=== PATIENT | male | born 1955 | race Caucasian/White ===

== ENCOUNTER 2020-05-03 15:17 | Outpatient (CLI) | payer OTHER, SELFPAY ==
--- NOTE | 2020-05-03 15:23 | US_ITS ---
WS: [id number] RENAL ULTRASOUND REASON FOR EXAM: CKD STAGE 4 TECHNIQUE: Grayscale and Doppler ultrasound examination of the kidneys. FINDINGS: Right kidney: Right kidney measures 9.3 cm x 4.5 cm x 4.8 cm. No calculus, hydronephrosis, or mass. Left kidney: Left kidney measures 10.7 cm x 4.9 cm x 5.0 cm. No hydronephrosis or calculus. There wer e 2 exophytic sonolucent masses involving the left kidney, 1.8 cm in maximum diameter, 2.3 cm in maxi mum diameter. Bladder was nondistended. Aorta not visualized. US/US renal BI* [id number] IMPRESSION: Small left renal cysts as above. Examination otherwise unremarkable.
== END 2020-05-03 15:18 | disposition home or self-care (01) ==
PROVIDERS: PCP Nurse Practitioner; Visit Provider Registered Nurse
DX: N18.4 Chronic kidney disease, stage 4 (severe) (principal); N28.1 Cyst of kidney, acquired
CPT/HCPCS: 76770

== ENCOUNTER 2021-07-23 09:43 | Outpatient (CLI) | payer OTHER, SELFPAY ==
--- NOTE | 2021-07-23 10:15 | USCV_ITS ---
Bayron Omer Age: 65 Gender: M : 1955 Exam Date: 07/23/2021 10:04 Ordering Phys: Rosangela Estrada MD Technologist: Exam Location: [facility] [place] Indication: HX OF LA BP: 135 / 75 HR: 70 Rhythm: Sinus Technical Quality: Adequate MEASUREMENTS (Male / Female) Normal Values 2D ECHO LV Diastolic Diameter PLAX 4.8 cm 4.2 - 5.9 / 3.9 - 5.3 cm LV Systolic Diameter PLAX 2.9 cm IVS Diastolic Thickness 1.6 cm 0.6 - 1.0 / 0.6 - 0.9 cm IVS Systolic Thickness 1.7 cm LVPW Diastolic Thickness 1.3 cm 0.6 - 1.0 / 0.6 - 0.9 cm LVPW Systolic Thickness 1.5 cm LVOT Diameter 2.1 cm LV Ejection Fraction 2D Teich 65.7 % LV Ejection Fraction MOD 2C 59.7 % LV Ejection Fraction 2C AL 59.2 % LA Diameter 4.4 cm LA Width 4.4 cm LA Height 5.8 cm RA Width 4.6 cm RA Height 4.7 cm Aorta at Sinotubular Diameter 2.7 cm M-MODE LV Diastolic Diameter MM 5.7 cm 4.2 - 5.9 / 3.9 - 5.3 cm LV Systolic Diameter MM 4.1 cm LV Ejection Fraction MM Teich 55.1 % IVS Diastolic Thickness MM 1.2 cm 0.6 - 1.0 / 0.6 - 0.9 cm IVS Systolic Thickness MM 1.8 cm LVPW Diastolic Thickness MM 1.4 cm 0.6 - 1.0 / 0.6 - 0.9 cm LVPW Systolic Thickness MM 2.1 cm RV Diastolic Diameter MM 1.3 cm Aortic Annulus Diameter 3.2 cm LA Ao Ratio MM 1.6 MV E Point Septal Separation 1.3 cm DOPPLER AV Peak Velocity 134.0 cm/s LVOT Peak Velocity 84.0 cm/s AV Area Cont Eq vti 1.8 cm squared AV Area Cont Eq pk 2.1 cm squared MV Area PHT 5.0 cm squared Mitral E to A Ratio 1.2 MV E' Velocity 100.0 cm/s TR Peak Velocity 161.8 cm/s TR Peak Gradient 10.5 mmHg TV Peak E Velocity 78.0 cm/s Right Atrial Pressure 3.0 mmHg Pulmonary Artery Systolic Pressu 13.5 mmHg PV Peak Velocity 95.0 cm/s RV Acceleration Time 0.1 s FINDINGS Left Ventricle Normal left ventricular size and systolic function, EF 58 %. No regional wall motion abnormalities. Right Ventricle The right ventricle is normal in size and function. Right Atrium The right atrium is normal in size. Left Atrium Mildly increased left atrial size. Mitral Valve Thickened mitral valve. Trace to mild mitral valve regurgitation. Aortic Valve No gross abnormalities noted no gross abnormalities noted Tricuspid Valve No gross abnormalities noted Pulmonic Valve Pulmonic valve not well visualized. Pericardium Normal pericardium without effusion. Aorta Normal ascending aorta dimension. CONCLUSIONS Normal left ventricular size and systolic function, EF 58 %. No regional wall motion abnormalities. Thickened mitral valve. Trace to mild mitral valve regurgitation. Mildly increased left atrial size. There are no intracardiac masses. There is no pericardial effusion. No previous study is available for comparison. Dr Rosangela Estrada MD FACC (Electronically Signed) Final Date: 30 July 2021 18:32 S
== END 2021-07-23 09:44 | disposition home or self-care (01) ==
PROVIDERS: PCP Family Medicine; Visit Provider Internal Medicine Cardiovascular Disease
DX: R06.00 Dyspnea, unspecified (principal); I25.2 Old myocardial infarction; I34.0 Nonrheumatic mitral (valve) insufficiency
CPT/HCPCS: 93306

== ENCOUNTER → 2021-12-12 09:55 | Outpatient (BNVA) | payer OTHER, SELFPAY | PROVIDERS: PCP Family Medicine; Visit Provider Internal Medicine Cardiovascular Disease | DX: I25.10 Atherosclerotic heart disease of native coronary artery without angina pectoris (principal); I13.0 Hypertensive heart and chronic kidney disease with heart failure and stage 1 through stage 4 chronic kidney disease, or unspecified chronic kidney disease; E13.22 Other specified diabetes mellitus with diabetic chronic kidney disease; N18.4 Chronic kidney disease, stage 4 (severe); I50.32 Chronic diastolic (congestive) heart failure; Z99.2 Dependence on renal dialysis; Z87.891 Personal history of nicotine dependence; Z79.4 Long term (current) use of insulin; Z79.84 Long term (current) use of oral hypoglycemic drugs; G47.33 Obstructive sleep apnea (adult) (pediatric); E78.5 Hyperlipidemia, unspecified | CPT/HCPCS: 99214 ==

== ENCOUNTER → 2022-04-03 10:15 | Outpatient (BNVA) | payer OTHER, SELFPAY | PROVIDERS: PCP Family Medicine; Visit Provider Internal Medicine Rheumatology | DX: Z79.899 Other long term (current) drug therapy (principal); N18.4 Chronic kidney disease, stage 4 (severe); M25.50 Pain in unspecified joint; Z11.59 Encounter for screening for other viral diseases; Z11.1 Encounter for screening for respiratory tuberculosis; E13.22 Other specified diabetes mellitus with diabetic chronic kidney disease; Z79.4 Long term (current) use of insulin | CPT/HCPCS: 36415; 73130; 80076; 82565; 82784; 85025; 85651; 86036; 86140; 86160; 86162; 86235; 86255; 86376; 86431; 86480; 86704; 86803; 87340; 99204 ==

== ENCOUNTER → 2022-06-19 10:10 | Outpatient (BNVA) | payer OTHER, SELFPAY | PROVIDERS: PCP Family Medicine; Visit Provider Internal Medicine Cardiovascular Disease | DX: I13.0 Hypertensive heart and chronic kidney disease with heart failure and stage 1 through stage 4 chronic kidney disease, or unspecified chronic kidney disease (principal); E13.22 Other specified diabetes mellitus with diabetic chronic kidney disease; N18.4 Chronic kidney disease, stage 4 (severe); I50.32 Chronic diastolic (congestive) heart failure; Z87.891 Personal history of nicotine dependence; Z79.4 Long term (current) use of insulin; E78.5 Hyperlipidemia, unspecified; I25.10 Atherosclerotic heart disease of native coronary artery without angina pectoris; E66.01 Morbid (severe) obesity due to excess calories; Z68.42 Body mass index [BMI] 45.0-49.9, adult; G47.33 Obstructive sleep apnea (adult) (pediatric) | CPT/HCPCS: 99214 ==

== ENCOUNTER → 2022-07-02 10:16 | Outpatient (BNVA) | payer OTHER, SELFPAY | PROVIDERS: PCP Family Medicine; Visit Provider Internal Medicine Rheumatology | DX: M25.50 Pain in unspecified joint (principal); Z79.899 Other long term (current) drug therapy; N18.4 Chronic kidney disease, stage 4 (severe); E13.9 Other specified diabetes mellitus without complications | CPT/HCPCS: 99214 ==

== ENCOUNTER 2022-09-07 01:00 | Outpatient (RCR) | payer OTHER, SELFPAY | END 2022-10-06 23:59 | disposition home or self-care (01) | LOC: TPT 01:00 | PROVIDERS: Visit Provider Physician Assistant | DX: M54.50 Low back pain, unspecified (principal) | CPT/HCPCS: 97110; 97162 ==

== ENCOUNTER → 2022-09-12 14:00 | Outpatient (BNVA) | payer OTHER, SELFPAY | PROVIDERS: PCP Family Medicine; Referring Provider Family Medicine; Visit Provider Physician Assistant | DX: M43.16 Spondylolisthesis, lumbar region (principal); M51.36 Other intervertebral disc degeneration, lumbar region | CPT/HCPCS: 72110; 99203 ==

== ENCOUNTER 2022-10-07 06:00 | Outpatient (RCR) | payer OTHER, SELFPAY | END 2022-11-06 23:59 | disposition home or self-care (01) | LOC: TPT 06:00 | PROVIDERS: Visit Provider Physician Assistant | DX: M54.50 Low back pain, unspecified (principal) | CPT/HCPCS: 97110 ==

== ENCOUNTER 2022-11-07 06:00 | Outpatient (RCR) | payer OTHER, SELFPAY | END 2022-11-12 23:59 | disposition home or self-care (01) | LOC: TPT 06:00 | PROVIDERS: Visit Provider Physician Assistant | DX: M54.50 Low back pain, unspecified (principal) | CPT/HCPCS: 97110 ==

== ENCOUNTER → 2022-12-25 10:40 | Outpatient (BNVA) | payer OTHER, SELFPAY | PROVIDERS: PCP Family Medicine; Visit Provider Internal Medicine Rheumatology | DX: M25.50 Pain in unspecified joint (principal); Z79.899 Other long term (current) drug therapy; N18.4 Chronic kidney disease, stage 4 (severe); E13.9 Other specified diabetes mellitus without complications; M19.90 Unspecified osteoarthritis, unspecified site; Z79.4 Long term (current) use of insulin | CPT/HCPCS: 99214 ==

== ENCOUNTER → 2023-03-11 10:58 | Outpatient (BNVA) | payer OTHER, SELFPAY | PROVIDERS: PCP Family Medicine; Visit Provider Nurse Practitioner Family | DX: L57.0 Actinic keratosis (principal); Z85.828 Personal history of other malignant neoplasm of skin; I87.2 Venous insufficiency (chronic) (peripheral); L82.1 Other seborrheic keratosis; L57.8 Other skin changes due to chronic exposure to nonionizing radiation | CPT/HCPCS: 17000; 99214 ==

== ENCOUNTER → 2023-03-13 12:26 | Outpatient (BNVA) | payer OTHER, SELFPAY | PROVIDERS: PCP Family Medicine; Visit Provider Internal Medicine Rheumatology | DX: Z79.899 Other long term (current) drug therapy (principal); M19.90 Unspecified osteoarthritis, unspecified site; N18.4 Chronic kidney disease, stage 4 (severe); E13.9 Other specified diabetes mellitus without complications; M25.50 Pain in unspecified joint | CPT/HCPCS: 36415; 80076; 82565; 85025; 86140; 99214 ==

== ENCOUNTER → 2023-03-18 09:38 | Outpatient (BNVA) | payer OTHER, SELFPAY | PROVIDERS: PCP Family Medicine; Visit Provider Podiatrist Foot & Ankle Surgery | DX: L60.3 Nail dystrophy (principal); E11.42 Type 2 diabetes mellitus with diabetic polyneuropathy; I73.9 Peripheral vascular disease, unspecified; N18.4 Chronic kidney disease, stage 4 (severe); E11.22 Type 2 diabetes mellitus with diabetic chronic kidney disease; Z79.4 Long term (current) use of insulin | CPT/HCPCS: 11721; 99203 ==

== ENCOUNTER → 2023-06-25 09:37 | Outpatient (BNVA) | payer OTHER, SELFPAY | PROVIDERS: PCP Family Medicine; Visit Provider Podiatrist Foot & Ankle Surgery | DX: L60.3 Nail dystrophy (principal); E11.42 Type 2 diabetes mellitus with diabetic polyneuropathy; I73.9 Peripheral vascular disease, unspecified; N18.4 Chronic kidney disease, stage 4 (severe); M72.2 Plantar fascial fibromatosis; M21.41 Flat foot [pes planus] (acquired), right foot; M21.42 Flat foot [pes planus] (acquired), left foot; M21.621 Bunionette of right foot; M21.622 Bunionette of left foot; Z79.4 Long term (current) use of insulin | CPT/HCPCS: 11721; 99213 ==

== ENCOUNTER 2023-06-25 10:25 | Outpatient (CLI) | payer OTHER, SELFPAY | END 2023-06-25 10:26 | disposition home or self-care (01) | LOC: SPT 10:25 | PROVIDERS: PCP Family Medicine; Visit Provider Podiatrist Foot & Ankle Surgery | DX: Z46.89 Encounter for fitting and adjustment of other specified devices (principal); M72.2 Plantar fascial fibromatosis | CPT/HCPCS: 97760; L4397 ==

== ENCOUNTER → 2023-07-03 12:43 | Outpatient (BNVA) | payer OTHER, SELFPAY | PROVIDERS: PCP Family Medicine; Visit Provider Internal Medicine Rheumatology | DX: Z79.899 Other long term (current) drug therapy (principal); M19.90 Unspecified osteoarthritis, unspecified site; N18.4 Chronic kidney disease, stage 4 (severe); E13.9 Other specified diabetes mellitus without complications; M25.50 Pain in unspecified joint | CPT/HCPCS: 99214 ==

== ENCOUNTER → 2023-07-14 09:57 | Outpatient (BNVA) | payer OTHER, SELFPAY | PROVIDERS: PCP Family Medicine; Visit Provider Nurse Practitioner Family | DX: Z85.828 Personal history of other malignant neoplasm of skin (principal); L57.0 Actinic keratosis; L57.8 Other skin changes due to chronic exposure to nonionizing radiation; D22.4 Melanocytic nevi of scalp and neck; L81.4 Other melanin hyperpigmentation; L82.1 Other seborrheic keratosis | CPT/HCPCS: 17000; 99213 ==

== ENCOUNTER → 2023-08-22 09:49 | Outpatient (BNVA) | payer OTHER, SELFPAY | PROVIDERS: PCP Family Medicine; Visit Provider Internal Medicine Cardiovascular Disease | DX: E78.5 Hyperlipidemia, unspecified (principal); I25.10 Atherosclerotic heart disease of native coronary artery without angina pectoris; I13.0 Hypertensive heart and chronic kidney disease with heart failure and stage 1 through stage 4 chronic kidney disease, or unspecified chronic kidney disease; E11.22 Type 2 diabetes mellitus with diabetic chronic kidney disease; I50.32 Chronic diastolic (congestive) heart failure; N18.4 Chronic kidney disease, stage 4 (severe); I73.9 Peripheral vascular disease, unspecified; Z87.891 Personal history of nicotine dependence; Z79.4 Long term (current) use of insulin | CPT/HCPCS: 99214 ==

== ENCOUNTER → 2023-09-10 09:17 | Outpatient (BNVA) | payer OTHER, SELFPAY | PROVIDERS: PCP Family Medicine; Visit Provider Podiatrist Foot & Ankle Surgery | DX: M21.41 Flat foot [pes planus] (acquired), right foot (principal); M21.42 Flat foot [pes planus] (acquired), left foot; I73.9 Peripheral vascular disease, unspecified; L60.3 Nail dystrophy; E11.42 Type 2 diabetes mellitus with diabetic polyneuropathy; N18.4 Chronic kidney disease, stage 4 (severe); M72.2 Plantar fascial fibromatosis; M21.621 Bunionette of right foot; M21.622 Bunionette of left foot | CPT/HCPCS: 11721; 73630; 99213 ==

== ENCOUNTER → 2023-10-16 13:31 | Outpatient (BNVA) | payer OTHER, SELFPAY | PROVIDERS: PCP Family Medicine; Visit Provider Internal Medicine Rheumatology | DX: Z79.899 Other long term (current) drug therapy (principal); M19.90 Unspecified osteoarthritis, unspecified site; N18.4 Chronic kidney disease, stage 4 (severe); E13.9 Other specified diabetes mellitus without complications; M25.50 Pain in unspecified joint | CPT/HCPCS: 99214 ==

== ENCOUNTER → 2023-12-16 10:15 | Outpatient (BNVA) | payer OTHER, SELFPAY | PROVIDERS: PCP Family Medicine; Visit Provider Podiatrist Foot & Ankle Surgery | DX: L60.3 Nail dystrophy (principal); I73.9 Peripheral vascular disease, unspecified; N18.4 Chronic kidney disease, stage 4 (severe); M72.2 Plantar fascial fibromatosis; M21.41 Flat foot [pes planus] (acquired), right foot; M21.42 Flat foot [pes planus] (acquired), left foot; M21.621 Bunionette of right foot; M21.622 Bunionette of left foot; E11.22 Type 2 diabetes mellitus with diabetic chronic kidney disease; Z79.4 Long term (current) use of insulin | CPT/HCPCS: 11721 ==

== ENCOUNTER → 2024-01-26 10:41 | Outpatient (BNVA) | payer OTHER, SELFPAY | PROVIDERS: PCP Family Medicine; Visit Provider Nurse Practitioner Family | DX: L57.8 Other skin changes due to chronic exposure to nonionizing radiation (principal); D22.4 Melanocytic nevi of scalp and neck; L81.4 Other melanin hyperpigmentation; L82.1 Other seborrheic keratosis; L57.0 Actinic keratosis; Z85.828 Personal history of other malignant neoplasm of skin | CPT/HCPCS: 17000; 99214 ==

== ENCOUNTER → 2024-02-23 11:16 | Outpatient (BNVA) | payer OTHER, SELFPAY | PROVIDERS: PCP Family Medicine; Visit Provider Internal Medicine Cardiovascular Disease | DX: I25.10 Atherosclerotic heart disease of native coronary artery without angina pectoris (principal); E78.5 Hyperlipidemia, unspecified; I11.0 Hypertensive heart disease with heart failure; I50.32 Chronic diastolic (congestive) heart failure; I73.9 Peripheral vascular disease, unspecified | CPT/HCPCS: 99214 ==

== ENCOUNTER → 2024-02-25 14:23 | Outpatient (BNVA) | payer OTHER, SELFPAY | PROVIDERS: PCP Family Medicine; Visit Provider Internal Medicine Rheumatology | DX: Z79.899 Other long term (current) drug therapy (principal); M19.90 Unspecified osteoarthritis, unspecified site; N18.4 Chronic kidney disease, stage 4 (severe); E13.9 Other specified diabetes mellitus without complications; M25.50 Pain in unspecified joint | CPT/HCPCS: 80076; 82565; 85025; 85651; 86140; 99214 ==

== ENCOUNTER → 2024-03-23 09:40 | Outpatient (BNVA) | payer OTHER, SELFPAY | PROVIDERS: PCP Family Medicine; Visit Provider Podiatrist Foot & Ankle Surgery | DX: E11.8 Type 2 diabetes mellitus with unspecified complications (principal); R03.0 Elevated blood-pressure reading, without diagnosis of hypertension; L60.3 Nail dystrophy; I73.9 Peripheral vascular disease, unspecified; N18.4 Chronic kidney disease, stage 4 (severe); M72.2 Plantar fascial fibromatosis; M21.41 Flat foot [pes planus] (acquired), right foot; M21.42 Flat foot [pes planus] (acquired), left foot; M21.621 Bunionette of right foot; M21.622 Bunionette of left foot; L84 Corns and callosities; Z79.4 Long term (current) use of insulin | CPT/HCPCS: 11055; 11721 ==

== ENCOUNTER 2024-03-26 09:39 | Outpatient (CLI) | payer OTHER, SELFPAY ==
[2024-03-26 10:18] LABS: Basophils # 0.1 10^3/uL (0.0-0.1); Basophils % 1.6 %; Eosinophils # 0.1 10^3/uL (0.0-0.8); Eosinophils % 2.4 %; Hematocrit 51.8 % (37-53); Lymphocytes # 1.2 10^3/uL (0.8-4.8); Lymphocytes % 21.2 %; Mean Corpuscular HGB Conc 31.1 g/dL (30-55); Mean Corpuscular Hemoglobin 29.7 pg (27-33); Mean Corpuscular Volume 95.6 fl (82-101); Mean Platelet Volume 12.6 fL (7.4-10.4); Monocytes # 0.4 10^3/uL (0.2-0.9); Monocytes % 6.2 %; Neutrophils # 3.96 10^3/uL (1.8-7.7); Neutrophils % 68.4 %; Nucleated Red Blood Cells % 0 %; Platelet Count 145 10^3/cmm (157-399); Red Blood Count 5.42 10^6/uL (3.85-5.65); Red Cell Distribution Width 14.5 % (12.1-15.1); White Blood Count 5.79 10^3/uL (3.29-11.43)
[2024-03-26 10:27] LABS: Albumin Level 3.9 g/dL (3.5-5.2); Anion Gap 11.3 (5-19); Blood Urea Nitrogen 21 mg/dL (8-23); Calcium 8.6 mg/dL (8.5-10.5); Carbon Dioxide 32 mmol/L (22-29); Chloride 106 mmol/L (98-107); Glomerular Filtration Rate 31.5 mL/min (90-130); Glucose 96 mg/dL (65-115); Phosphorus 2.8 mg/dL (2.5-4.5); Potassium 4.3 mmol/L (3.5-5.1); Sodium 145 mmol/L (136-145)
[2024-03-26 10:29] LABS: Calcium 8.7 mg/dL (8.5-10.5)
[2024-03-26 10:33] LABS: Parathyroid Hormone 118.6 pg/mL (15-65)
[2024-03-26 10:35] LABS: Creatinine Urine, Random 131 mg/dL (39-259); Microalbum Creatinine Ratio Ur 8 mg/dL (0-20); Microalbumin Random Urine 1 ug/dL (0-20)
== END 2024-03-26 09:40 | disposition home or self-care (01) ==
LOC: LAB 09:41
PROVIDERS: PCP Family Medicine; Visit Provider Registered Nurse
DX: N18.4 Chronic kidney disease, stage 4 (severe) (principal)
CPT/HCPCS: 36415; 80069; 82044; 82310; 83970; 85025

== ENCOUNTER 2024-05-20 20:10 | Inpatient (IN) | payer OTHER, MEDICARE, SELFPAY ==
[2024-05-20] VITALS (39 sets, daily range): BP systolic 78–115; BP diastolic 39–95; PULSE 74–88; RESP 12–26; O2SAT 84–96
--- NOTE | 2024-05-20 20:31 | ED_ITS ---
HPI - Recheck/Abnormal Lab/Rx 2 General: Chief Complaint: ER Hold Stated Complaint: Kidney Failure Time Seen by Provider: 05/20/24 20:22 History of Present Illness: Presents to the ER today after being called by the [facility] and tell him his GFR was 12 and they need to come. Further evaluated. Patient states he had nausea vomiting and diarrhea for about the last 3 to 4 days. It was worse on Friday and Friday is mildly better but patient still not drinking at most 8 to 16 ounces of water a day. 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 Patient states he did take 1 dose of an antibiotic at the [facility] gave him for this nausea vomiting and diarrhea but does not remember the name of it. Related Data Home Medications Medication Instructions Recorded Confirmed acetaminophen 500 mg tablet 500 mg PO Q6H PRN 08/11/19 03/23/24 ascorbic acid (vitamin C) 500 mg mg PO 08/11/19 03/23/24 capsule aspirin 81 mg tablet,delayed 81 mg PO DAILY 08/11/19 03/23/24 release (Adult Low Dose Aspirin) atorvastatin 80 mg tablet 40 mg PO DAILY 08/11/19 03/23/24 bupropion HCl 150 mg tablet,12 hr 150 mg PO QAM 08/11/19 03/23/24 sustained-release cholecalciferol (vitamin D3) 10 400 unit PO DAILY 08/11/19 03/23/24 mcg (400 unit) capsule clopidogrel 75 mg tablet 75 mg PO DAILY 08/11/19 03/23/24 furosemide 40 mg tablet (Lasix) 40 mg PO DAILY 08/11/19 03/23/24 gabapentin 100 mg capsule 100 mg PO BID 08/11/19 03/23/24 insulin detemir U-100 100 unit/mL 51 unit SUBCUT QAM 08/11/19 03/23/24 subcutaneous solution (Levemir U-100 Insulin) lisinopril 10 mg tablet 10 mg PO DAILY 08/11/19 03/23/24 loratadine 10 mg tablet 10 mg PO DAILY 08/11/19 03/23/24 melatonin 10 mg capsule 10 mg PO DAILY 08/11/19 03/23/24 methocarbamol 500 mg tablet 500 mg PO TID 08/11/19 03/23/24 multivitamin 1 tab PO DAILY 08/11/19 03/23/24 omega-3 fatty acids 1,000 mg 1,000 mg PO DAILY 08/11/19 03/23/24 capsule (Fish Oil Concentrate) prazosin 2 mg capsule 2 mg PO .at bedtime 08/11/19 03/23/24 testosterone cypionate 200 mg/mL IM .monthly 08/11/19 03/23/24 intramuscular oil (Depo-Testosterone) ferrous sulfate 325 mg (65 mg 325 mg PO DAILY 02/08/20 03/23/24 iron) tablet insulin detemir U-100 100 unit/mL 60 unit SUBCUT .in the evening 06/22/20 03/23/24 subcutaneous solution (Levemir U-100 Insulin) zinc acetate 25 mg (zinc) capsule 25 mg PO DAILY 06/22/20 03/23/24 (Galzin) levothyroxine 25 mcg tablet 50 mcg PO DAILY 08/08/20 03/23/24 metoprolol tartrate 25 mg tablet 25 mg PO BID 02/08/21 03/23/24 cinnamon bark 500 mg capsule 500 mg PO DAILY 06/19/22 03/23/24 Previous Rx's Medication Instructions Recorded nitroglycerin 0.4 mg sublingual 0.4 mg sublingual Q5M PRN chest 08/08/20 tablet (Nitrostat) pain #50 tabs prednisone 20 mg tablet 20 mg PO DAILY #15 tabs 09/12/22 Diabetic shoes with 3 sets of #1 ea 03/18/23 insoles diabetic shoes with 3 inserts #1 ea 06/25/23 night splint #1 ea 06/25/23 adalimumab 40 mg/0.8 mL 40 mg (0.8 mL) SUBCUT Q14D #2 ea 02/25/24 subcutaneous pen kit (Humira Pen) leflunomide 20 mg tablet 20 mg PO DAILY #90 tabs 02/25/24 diabetic shoes with 3 insterts #1 ea 03/23/24 Allergies Allergy/AdvReac Type Severity Reaction Status Date / Time No Known Allergies Allergy Verified 03/23/24 09:50 Review of Systems 2 General: Reports: 10 or more systems reviewed and unremarkable except in HPI and below PFSH ED 2 PFSH: Medical History Polyarthralgia History of nonmelanoma skin cancer High risk medication use Inflammatory arthritis 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 Morbid obesity due to excess calories Atherosclerosis of coronary artery of [place] heart without angina pectoris Diabetes 1.5, managed as type 2 Dyslipidemia (high LDL; low HDL) Hypertension TRU (obstructive sleep apnea) Myocardial infarction CHF (congestive heart failure) Surgical History Hx of cataract extraction Hx of circumcision History of heart artery stent H/O wisdom tooth extraction Family History Father CAD (coronary artery disease) Grandfather Cancer Mother Chronic kidney disease (CKD) Stroke Sister Diabetes Denies family history of Clotting disorder Dementia Suicide Anesthesia complication Bleeding disorder Lung disease Social History Smoking and tobacco/nicotine status: never used tobacco/nicotine Alcohol intake: current Alcohol intake frequency: holidays/special occasions only Substance/Drug Use: never Physical Exam 2 Const: COMMON NORMALS: no acute distress, average body habitus, patient oriented x3, no limitations, healthy appearing and alert HENMT: COMMON NORMALS: normocephalic, atraumatic, hearing grossly normal bilaterally, external ears normal, Normal external nose present and moist oral mucous membranes HEAD & SCALP: normocephalic and atraumatic NOSE: Normal external nose present EXTERNAL EAR: Yes external ears normal Neck/C-Spine: COMMON NORMALS: no JVD Chest: COMMONS NORMALS: normal inspection of the chest and normal palpation of entire chest wall Resp: COMMON NORMALS: normal respiratory effort, No retractions, No use of accessory muscles and clear to auscultation bilaterally AUSCULTATION: clear to auscultation bilaterally Cardio: COMMON NORMALS: no JVD, regular rate, regular rhythm, S1 normal heart sound present, S2 normal heart sound present, No gallops present (Cardio), No clicks present (Cardio) and No murmurs present (Cardio) RATE: regular rate RHYTHM: regular rhythm HEART SOUNDS: S1 normal heart sound present and S2 normal heart sound present GI: COMMON NORMALS: Normal to inspection, nondistended, normoactive bowel sounds present, Soft to palpation, non-tender, No hepatosplenomegaly present and no masses PALPATION: Yes Soft to palpation and Yes No hepatosplenomegaly present Neuro: COMMON NORMALS: patient oriented x3 SENSORIUM/ORIENTATION: Yes alert Course 2 Vital Signs: Vital signs: Vital Signs Pulse Rate 91 05/21/24 04:15 Respiratory Rate 20 H 05/21/24 04:15 Blood Pressure 112/59 05/21/24 04:15 Pulse Oximetry 98 05/21/24 04:15 Oxygen Delivery Me thod Room Air 05/21/24 00:12 MDM - Recheck/Abnormal Lab/Rx Medical Decision Making Number was obtained which revealed a BUN/creatinine of 58 and 4.4, otherwise lab work was essentially unremarkable but elevated procalcitonin of 5.1, patient was given 2 L normal saline bolus and his blood pressure stayed soft with the last pressure being 87/40. These results was discussed with the patient and Dr. Zhu and we agreed to place the patient on MedSurg with for gentle hydration. Medical Records I reviewed the patient's medical records. Lab Data I reviewed the patient's lab results. 05/21/24 03:44 05/21/24 03:44 Radiology Impressions Chest X-Ray 05/20/24 20:33 IMPRESSION: No acute findings. Laboratory Results WBC 9.96 10^3/uL (3.29-11.43) 05/20/24 20:28 RBC 4.66 10^6/uL (3.85-5.65) 05/20/24 20:28 Hgb 13.80 g/dL (11.27-16.99) 05/20/24 20:28 Hct 42.5 % (37-53) 05/20/24 20:28 MCV 91.2 fl (82-101) 05/20/24 20:28 MCH 29.6 pg (27-33) 05/20/24 20:28 MCHC 32.5 g/dL (30-55) 05/20/24 20:28 RDW 14.5 % (12.1-15.1) 05/20/24 20:28 Plt Count 126 10^3/cmm (157-399) L 05/20/24 20:28 MPV 12.2 fL (7.4-10.4) H 05/20/24 20:28 Neut % (Auto) 79.3 % 05/20/24 20:28 Lymph % (Auto) 8.8 % 05/20/24 20:28 Amite % (Auto) 9.3 % 05/20/24 20: Eos % (Auto) 1.4 % 05/20/24 20: Baso % (Auto) 0.5 % 05/20/24 20: Neut # (Auto) 7.89 10^3/uL (1.8-7.7) H 05/20/24 20: Lymph # (Auto) 0.9 10^3/uL (0.8-4.8) 05/20/24 20: Amite # (Auto) 0.9 10^3/uL (0.2-0.9) 05/20/24 20: Eos # (Auto) 0.1 10^3/uL (0.0-0.8) 05/20/24 20: Baso # (Auto) 0.1 10^3/uL (0.0-0.1) 05/20/24 20: Nucleated RBC % (auto) 0 % 05/20/24 20: Nucleated RBCs # 0.0 /100WBC 05/20/24 20: Sodium 136 mmol/L (136-145) 05/20/24 20: Potassium 3.8 mmol/L (3.5-5.1) 05/20/24 20: Chloride 100 mmol/L (98-107) 05/20/24 20: Carbon Dioxide 25 mmol/L (22-29) 05/20/24 20: Anion Gap 14.8 (5-19) 05/20/24 20: BUN 58 mg/dL (8-23) H 05/20/24 20: Creatinine 4.4 mg/dL (0.7-1.2) H 05/20/24 20: GFR Calculation 13.4 mL/min (90-130) L 05/20/24 20: Glucose 96 mg/dL (65-115) 05/20/24 20: Calculated Osmolality 298 mOsm/kg (285-295) H 05/20/24 20:28 Lactic Acid 0.7 mmol/L (0.5-2.2) 05/20/24 20: Calcium 8.5 mg/dL (8.5-10.5) 05/20/24 20:28 Phosphorus 2.8 mg/dL (2.5-4.5) 05/20/24 20:28 Magnesium 2.2 mg/dL (1.7-2.3) 05/20/24 20:28 Total Bilirubin 0.3 mg/dL (0.15-1.2) 05/20/24 20:28 AST 41 U/L (0-40) H 05/20/24 20:28 ALT 36 U/L (0-41) 05/20/24 20:28 Alkaline Phosphatase 91 U/L (40-130) 05/20/24 20:28 Total Protein 6.5 g/dL (6.6-8.7) L 05/20/24 20:28 Albumin 2.9 g/dL (3.5-5.2) L 05/20/24 20:28 Globulin 3.6 g/dL (1.3-4.6) 05/20/24 20:28 Procalcitonin 5.51 ng/mL (0-0.5) H 05/20/24 20:28 All radiology interpretation(s) finalized by discharge Discharge Plan Discharge Patient Disposition: Admitted As Inpatient Admit Provider: Vernon Zhu Clinical Impression: Acute on chronic kidney failure, Gastroenteritis Condition: Stable Coding Level of Care Code ED 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
--- NOTE | 2024-05-20 20:33 | XRR_ITS ---
PROCEDURE INFORMATION: Exam: XR Chest Exam date and time: 05/20/2024 8:42 PM Age: 68 years old Clinical indication: Cough and dyspnea; Prior surgery; Surgery date: 6+ months; Surgery type: Stents; Additional info: Dyspnea fatigue TECHNIQUE: Imaging protocol: Radiologic exam of the chest. Views: 1 view. COMPARISON: CR XR chest 1V [id number] 03/05/2019 11:33 AM FINDINGS: Lungs: No consolidation or pulmonary edema. Pleural spaces: No large pleural effusion. No pneumothorax. Heart/Mediastinum: Unchanged cardiomegaly. Bones/joints: No acute abnormality. XR/XR chest 1V portable [id number] IMPRESSION: No acute findings.
[2024-05-20 20:36] LABS: Basophils # 0.1 10^3/uL (0.0-0.1); Basophils % 0.5 %; Eosinophils # 0.1 10^3/uL (0.0-0.8); Eosinophils % 1.4 %; Hematocrit 42.5 % (37-53); Lymphocytes # 0.9 10^3/uL (0.8-4.8); Lymphocytes % 8.8 %; Mean Corpuscular HGB Conc 32.5 g/dL (30-55); Mean Corpuscular Hemoglobin 29.6 pg (27-33); Mean Corpuscular Volume 91.2 fl (82-101); Mean Platelet Volume 12.2 fL (7.4-10.4); Monocytes # 0.9 10^3/uL (0.2-0.9); Monocytes % 9.3 %; Neutrophils # 7.89 10^3/uL (1.8-7.7); Neutrophils % 79.3 %; Nucleated Red Blood Cells % 0 %; Platelet Count 126 10^3/cmm (157-399); Red Blood Count 4.66 10^6/uL (3.85-5.65); Red Cell Distribution Width 14.5 % (12.1-15.1); White Blood Count 9.96 10^3/uL (3.29-11.43)
[2024-05-20] MEDS: sodium chloride 0.9% 1,000 ML 999 ML IV ×2 (20:46→21:58)
[2024-05-20 20:58] LABS: Lactic Sepsis W/Reflex 0.7 mmol/L (0.5-2.2)
[2024-05-20 20:59] LABS: Alanine Aminotransferase 36 U/L (0-41); Albumin Level 2.9 g/dL (3.5-5.2); Alkaline Phosphatase 91 U/L (40-130); Anion Gap 14.8 (5-19); Aspartate Amino Transferase 41 U/L (0-40); Blood Urea Nitrogen 58 mg/dL (8-23); Calcium 8.5 mg/dL (8.5-10.5); Carbon Dioxide 25 mmol/L (22-29); Chloride 100 mmol/L (98-107); Globulin 3.6 g/dL (1.3-4.6); Glomerular Filtration Rate 13.4 mL/min (90-130); Glucose 96 mg/dL (65-115); Magnesium 2.2 mg/dL (1.7-2.3); Osmolality Calculated 298 mOsm/kg (285-295); Phosphorus 2.8 mg/dL (2.5-4.5); Potassium 3.8 mmol/L (3.5-5.1); Sodium 136 mmol/L (136-145); Total Bilirubin 0.3 mg/dL (0.15-1.2); Total Protein 6.5 g/dL (6.6-8.7)
[2024-05-20 21:05] LABS: Procalcitonin 5.51 ng/mL (0-0.5)
--- NOTE | 2024-05-20 23:48 | P.HP_ITS ---
Providers/Chief Complaint 2 Primary Care Provider: Antoinette Laird MD Chief Complaint: Kidney Failure History of Present Illness Bayron Omer is a 68 year old male with dyslipidemia, diabetes, atherosclerosis of coronary artery of [place] heart without angina pectoris, Diastolic heart failure, hypertension , PVD, type 2 diabetes, CKD presented for worsening of kidney disease. Patient seems to have chronic kidney disease stage IV with GFR between 15-30, in the ER CBC is unremarkable BMP showing creatinine of 4.2, baseline creatinine seems to be around 2. Patient takes lisinopril, Lasix, leflunomide. Patient has been experiencing loose stools for last 3 to 4 days, he is endorsing poor p.o. intake with decreased hydration. Patient is also experiencing rigors, chills with fever. Highest fever was 102 yesterday. He has not use any antibiotics recently. He is seeing a academic records specialist in [place] he was told that he has chronic kidney stage III. Review of Systems 2 Const: Reports: body aches, change in weight and fatigue ENMT: Denies: throat pain Card: Reports: swelling of feet/ankles; Denies: chest pain Resp: Reports: dyspnea GI: Reports: diarrhea : Denies: flank pain Medications/Allergies Home Medications Medication Instructions Recorded Confirmed Last Taken Type acetaminophen 500 mg tablet 500 mg PO Q6H PRN 08/11/19 03/23/24 Unknown History ascorbic acid (vitamin C) 500 mg mg PO 08/11/19 03/23/24 Unknown History capsule aspirin 81 mg tablet,delayed 81 mg PO DAILY 08/11/19 03/23/24 Unknown History release (Adult Low Dose Aspirin) atorvastatin 80 mg tablet 40 mg PO DAILY 08/11/19 03/23/24 Unknown History bupropion HCl 150 mg tablet,12 hr 150 mg PO QAM 08/11/19 03/23/24 Unknown History sustained-release cholecalciferol (vitamin D3) 10 400 unit PO DAILY 08/11/19 03/23/24 Unknown History mcg (400 unit) capsule clopidogrel 75 mg tablet 75 mg PO DAILY 08/11/19 03/23/24 Unknown History furosemide 40 mg tablet (Lasix) 40 mg PO DAILY 08/11/19 03/23/24 Unknown History gabapentin 100 mg capsule 100 mg PO BID 08/11/19 03/23/24 Unknown History insulin detemir U-100 100 unit/mL 51 unit SUBCUT QAM 08/11/19 03/23/24 Unknown History subcutaneous solution (Levemir U-100 Insulin) lisinopril 10 mg tablet 10 mg PO DAILY 08/11/19 03/23/24 Unknown History loratadine 10 mg tablet 10 mg PO DAILY 08/11/19 03/23/24 Unknown History melatonin 10 mg capsule 10 mg PO DAILY 08/11/19 03/23/24 Unknown History methocarbamol 500 mg tablet 500 mg PO TID 08/11/19 03/23/24 Unknown History multivitamin 1 tab PO DAILY 08/11/19 03/23/24 Unknown History omega-3 fatty acids 1,000 mg 1,000 mg PO DAILY 08/11/19 03/23/24 Unknown History capsule (Fish Oil Concentrate) prazosin 2 mg capsule 2 mg PO .at bedtime 08/11/19 03/23/24 Unknown History testosterone cypionate 200 mg/mL IM .monthly 08/11/19 03/23/24 Unknown History intramuscular oil (Depo-Testosterone) ferrous sulfate 325 mg (65 mg 325 mg PO DAILY 02/08/20 03/23/24 Unknown History iron) tablet insulin detemir U-100 100 unit/mL 60 unit SUBCUT .in the evening 06/22/20 03/23/24 Unknown History subcutaneous solution (Levemir U-100 Insulin) zinc acetate 25 mg (zinc) capsule 25 mg PO DAILY 06/22/20 03/23/24 Unknown History (Galzin) levothyroxine 25 mcg tablet 50 mcg PO DAILY 08/08/20 03/23/24 Unknown History nitroglycerin 0.4 mg sublingual 0.4 mg sublingual Q5M PRN chest 08/08/20 03/23/24 Unknown Rx tablet (Nitrostat) pain #50 tabs metoprolol tartrate 25 mg tablet 25 mg PO BID 02/08/21 03/23/24 Unknown History cinnamon bark 500 mg capsule 500 mg PO DAILY 06/19/22 03/23/24 Unknown History prednisone 20 mg tablet 20 mg PO DAILY #15 tabs 09/12/22 03/23/24 Unknown Rx Diabetic shoes with 3 sets of #1 ea 03/18/23 03/23/24 Unknown Rx insoles diabetic shoes with 3 inserts #1 ea 06/25/23 03/23/24 Unknown Rx night splint #1 ea 06/25/23 03/23/24 Unknown Rx adalimumab 40 mg/0.8 mL 40 mg (0.8 mL) SUBCUT Q14D #2 ea 02/25/24 03/23/24 Unknown Rx subcutaneous pen kit (Humira Pen) leflunomide 20 mg tablet 20 mg PO DAILY #90 tabs 02/25/24 03/23/24 Unknown Rx diabetic shoes with 3 insterts #1 ea 03/23/24 03/23/24 Unknown Rx Allergies Allergy/AdvReac Type Severity Reaction Status Date / Time No Known Allergies Allergy Verified 03/23/24 09:50 PFSH Acute 2 PFSH: Medical History Polyarthralgia History of nonmelanoma skin cancer High risk medication use Inflammatory arthritis 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 Morbid obesity due to excess calories Atherosclerosis of coronary artery of [place] heart without angina pectoris Diabetes 1.5, managed as type 2 Dyslipidemia (high LDL; low HDL) Hypertension TRU (obstructive sleep apnea) Myocardial infarction CHF (congestive heart failure) Surgical History Hx of cataract extraction Hx of circumcision History of heart artery stent H/O wisdom tooth extraction Family History Father CAD (coronary artery disease) Grandfather Cancer Mother Chronic kidney disease (CKD) Stroke Sister Diabetes Denies family history of Clotting disorder Dementia Suicide Anesthesia complication Bleeding disorder Lung disease Social History Smoking and tobacco/nicotine status: never used tobacco/nicotine Alcohol intake: current Alcohol intake frequency: holidays/special occasions only Substance/Drug Use: never Vitals/I&O/Wt Last Vital Signs Pulse 85 05/20/24 23:30 Resp 19 H 05/20/24 23:30 BP 87/40 05/20/24 23:30 Pulse Ox 93 05/20/24 23:30 O2 Del Method Room Air 05/20/24 20:15 05/20/24 05/20/24 05/21/24 14:59 22:59 06:59 Intake Total 1000 / 1000 1000 / 1999 Balance 1000 / 1000 1000 / 2000 Physical Exam 2 Narrative: Morbidly obese male Pleasant and cooperative No active nausea vomiting diarrhea or chest pain Currently on 2 L nasal cannula No abdominal pain Lower extremity 3+ edema Distended nontender abdomen S1, S2 No distress, patient is able to lay flat Hemodynamically stable Clinically does not look dehydrated Data 05/21/24 03:44 05/21/24 03:44 A&P Assessment and plan (1) Morbid obesity due to excess calories: (2) Gastroenteritis: (3) Acute on chronic kidney failure: Qualifiers: Acute renal failure type: unspecified Chronic kidney disease stage: u nspecified stage Qualified Code(s): N17.9 - Acute kidney failure, unspecified; N18.9 - Chronic kidney disease, unspecified (4) Inflammatory arthritis: (5) TRU (obstructive sleep apnea): Plan Acute on chronic kidney disease stage III Stop nephrotoxic agent such as lisinopril, leflunomide and Lasix Patient is following up with a academic records specialist in [place], I will rule out postrenal obstruction, Request CT abdomen pelvis without contrast Patient has received IV fluids which has improved his creatinine Creatinine at baseline CBC on 2 Please consult nephrology in the morning, there is no urgency/acute indication for nephrology consultation overnight, no hyperkalemia, patient is not acidotic, check phosphorus and magnesium Patient has received 500 mL normal saline, I will discontinue fluids after 1 L IV fluid is administered Fever with diarrhea Will request CT abdomen pelvis without contrast Currently afebrile I do not see any leukocytosis, no recent use of antibiotics If gets 3 loose stools in the hospital may need C. difficile rule out Type II diabetic reduce the dose of insulin, use sliding scale Diastolic heart failure with underlying sleep apnea: Use CPAP at nighttime, holding Lasix for now Full code Attestations 2 Medical Necessity Statement*: Anticipating more than 2 midnights for management evaluation of acute on chronic kidney disease stage III Coding Level of Care Code Acute Code for Chg Fwd Diagnoses Morbid obesity due to excess calories E66.01 Gastroenteritis K52.9 Acute on chronic kidney failure N17.9; N18.9 Acute renal failure type: unspecified Chronic kidney disease stage: unspecified stage Inflammatory arthritis M19.90 TRU (obstructive sleep apnea) G47.33
[2024-05-21] VITALS (62 sets, daily range): BP systolic 78–157; BP diastolic 43–110; PULSE 76–101; RESP 5–30; TEMP 36.4–37.7; O2SAT 87–98; BMI 56.7
[2024-05-21] MEDS: sodium chloride 0.9% 1,000 ML 100 ML IV (00:20)
[2024-05-21 01:31] LABS: Bilirubin Urine Negative (Negative); Blood Urine Negative (Negative); Glucose Urine UA Trace (Normal); Ketones Urine Trace (Negative); Leukocyte Esterase Urine Negative (Negative); Nitrate Urine Negative (Negative); Protein Urine 1+ (Negative); Specific Gravity, Urine 1.019 (1.005-1.030); Urine Appearance Cloudy (CLEAR); Urine Color Yellow (Yellow)
[2024-05-21 01:36] LABS: Add Urine Microscopic? YES; Bacteria Urine None Seen /hpf; Hyaline Casts Urine 17.37 /lpf; RBC Urine 0-2 /hpf (0-2); WBC Urine 0-5 /hpf (0-5)
[2024-05-21 02:01] LABS: Mucus Urine 2+ /hpf; UA Slide Review UA Slide Review Perf
[2024-05-21 03:53] LABS: Basophils # 0.1 10^3/uL (0.0-0.1); Basophils % 0.6 %; Eosinophils # 0.1 10^3/uL (0.0-0.8); Eosinophils % 1.3 %; Hematocrit 40.4 % (37-53); Lymphocytes % 9.9 %; Mean Corpuscular HGB Conc 31.9 g/dL (30-55); Mean Corpuscular Hemoglobin 29.4 pg (27-33); Mean Platelet Volume 12.3 fL (7.4-10.4); Monocytes # 0.9 10^3/uL (0.2-0.9); Monocytes % 9.4 %; Neutrophils # 7.59 10^3/uL (1.8-7.7); Nucleated Red Blood Cells % 0 %; Platelet Count 118 10^3/cmm (157-399); Red Blood Count 4.39 10^6/uL (3.85-5.65); Red Cell Distribution Width 14.6 % (12.1-15.1); White Blood Count 9.75 10^3/uL (3.29-11.43)
[2024-05-21 04:11] LABS: Anion Gap 14.7 (5-19); Blood Urea Nitrogen 56 mg/dL (8-23); Calcium 7.7 mg/dL (8.5-10.5); Carbon Dioxide 24 mmol/L (22-29); Chloride 104 mmol/L (98-107); Glomerular Filtration Rate 14.1 mL/min (90-130); Glucose 87 mg/dL (65-115); Magnesium 2.1 mg/dL (1.7-2.3); Osmolality Calculated 303 mOsm/kg (285-295); Phosphorus 2.3 mg/dL (2.5-4.5); Potassium 3.7 mmol/L (3.5-5.1); Sodium 139 mmol/L (136-145)
--- NOTE | 2024-05-21 06:34 | CTR_ITS ---
PROCEDURE INFORMATION: Exam: CT Abdomen And Pelvis Without Contrast Exam date and time: 05/21/2024 6:50 AM Age: 68 years old Clinical indication: Fever and other: Fever, diarrhea TECHNIQUE: Imaging protocol: Computed tomography of the abdomen and pelvis without contrast. Radiation optimization: All CT scans at this facility use at least one of these dose optimization techniques: automated exposure control; mA and/or kV adjustment per patient size (includes targeted exams where dose is matched to clinical indication); or iterative reconstruction. COMPARISON: DX XR hip BI 3-4V wo/w pel [id number] 08/21/2022 11:17 AM RADIATION DOSE METRICS: Total DLP (mGy-cm): 1221.73 FINDINGS: Lungs: Lung bases are clear as visualized. Heart: Base of heart is unremarkable as visualized. Coronary arteries: Heavy coronary calcified atherosclerotic disease. Liver: Normal. No mass. Gallbladder and biliary ducts: Cholelithiasis. Diffuse thickening of the gallbladder wall. Diffuse pericholecystic inflammatory change. Pancreas: Normal. No ductal dilation. Spleen: Normal. No splenomegaly. Adrenal glands: Normal. No mass. Kidneys and ureters: Benign exophytic left renal cyst. Stomach and bowel: [id number] colonic stool burden. Diverticulosis without evidence of diverticulitis. Appendix: No evidence of appendicitis. Intraperitoneal space: Small focus of omental ground-glass with central fat attenuation is noted along the distal left descending colon, anti mesenteric side (series 4, image 55). Vasculature: Mild atherosclerotic disease of the abdominal aorta. Pelvic phleboliths. Lymph nodes: Unremarkable. No enlarged lymph nodes. Urinary bladder: Unremarkable as visualized. Reproductive: Unremarkable as visualized. Bones/joints: Diffuse degenerative change of the visualized osseous structures. Findings compatible with DISH. Soft tissues: Unremarkable. CT/CT abdomen pelvis wo con [id number] IMPRESSION: 1. Findings are concerning for cholecystitis. Correlate clinically. Right upper quadrant ultrasound can be obtained for further assessment. 2. Small focus of omental infarct versus epiploic appendagitis of the left descending colon. COMMENTS: Consistent with the [employer]'s Incidental Findings Committee white paper (J Am Lexy Radiol 2018): Any incidental renal lesion less than 1 cm or classified as too small to characterize, or any incidental cystic renal lesion characterized as simple-appearing, is likely benign. No follow-up imaging is recommended for these lesions per consensus recommendations based on imaging criteria.
--- NOTE | 2024-05-21 07:07 | PC.PHAR ---
[facility] 7 they will open at 8
[2024-05-21 08:17] LABS: Urine Creatinine 240 mg/dL (39-259); Urine Random Sodium 25 mmol/L
[2024-05-21 08:23] LABS: Creatinine Urine, Random 241 mg/dL (39-259); Microalbum Creatinine Ratio Ur 4 mg/dL (0-20); Microalbumin Random Urine 1 ug/dL (0-20)
[2024-05-21 08:27] LABS: Glucose Point of Care 71 mg/dL (70-110)
--- NOTE | 2024-05-21 08:31 | USR_ITS ---
PROCEDURE INFORMATION: Exam: US Abdomen, Limited; Right Upper Quadrant Exam date and time: 05/21/2024 4:14 PM Age: 68 years old Clinical indication: Screening exam; Other: R/O cholecystitis? TECHNIQUE: Imaging protocol: Real time ultrasound of the abdomen with image documentation. Limited exam focused on the right upper quadrant. COMPARISON: US renal BI* [id number] 05/03/2020 3:58 PM FINDINGS: Liver: Normal. No masses. Gallbladder: Cholelithiasis. This includes gallstones in the neck of the gallbladder. The gallbladder wall is thickened at 12 mm. Biliary ducts: The common duct is dilated at 13 mm. Pancreas: Visualized pancreas is unremarkable. Right kidney: Normal. No mass. No hydronephrosis. US/US abdomen limited [id number] IMPRESSION: Cholelithiasis. Thickened gallbladder wall and dilated common duct.
[2024-05-21] MEDS: metoprolol tartrate 25 mg Tablet PO ×2 (09:19→18:02)
[2024-05-21] MEDS: aspirin 81 mg EC Tablet PO (09:19)
[2024-05-21] MEDS: levothyroxine 25 mcg Tablet 50 MCG PO (09:19)
[2024-05-21 11:19] LABS: Glucose Point of Care 96 mg/dL (70-110)
[2024-05-21 12:14] LABS: C.Diff PCR (Lab) NEGATIVE (Negative)
--- NOTE | 2024-05-21 12:33 | PC.SOCIAL ---
IMM Updated Updated pt on IMM. No questions voiced. Provided pt a copy. Initialed, dated, & timed a copy & placed in chart.
--- NOTE | 2024-05-21 14:41 | PM.MISC ---
Miscellaneous Note Note: seen today stool sample obtained ct abd reviewed us gallbladder ordered pt comfortable at this time further mgmt as per hnp and to be decided after results of ordered studies
[2024-05-21 16:48] LABS: Glucose Point of Care 61 mg/dL (70-110)
[2024-05-21 20:37] LABS: Glucose Point of Care 150 mg/dL (70-110)
[2024-05-21] MEDS: prazosin 1 mg Capsule 2 MG PO (22:54)
[2024-05-21] MEDS: insulin glargine 100 units/1 mL 10 UNIT SUBCUT (22:54)
[2024-05-22] VITALS (8 sets, daily range): BP systolic 110–138; BP diastolic 57–72; PULSE 75–104; RESP 16–19; TEMP 36.5–38.3; O2SAT 92–98
[2024-05-22] MEDS: acetaminophen 500 mg Tablet PO (00:25)
[2024-05-22 05:13] LABS: Basophils # 0.1 10^3/uL (0.0-0.1); Basophils % 0.8 %; Eosinophils # 0.1 10^3/uL (0.0-0.8); Eosinophils % 0.6 %; Hematocrit 40.8 % (37-53); Mean Corpuscular HGB Conc 32.1 g/dL (30-55); Mean Corpuscular Hemoglobin 29.5 pg (27-33); Mean Corpuscular Volume 91.9 fl (82-101); Mean Platelet Volume 12.5 fL (7.4-10.4); Monocytes % 9.6 %; Neutrophils # 7.89 10^3/uL (1.8-7.7); Nucleated Red Blood Cells % 0 %; Platelet Count 144 10^3/cmm (157-399); Red Blood Count 4.44 10^6/uL (3.85-5.65); Red Cell Distribution Width 14.6 % (12.1-15.1); White Blood Count 10.11 10^3/uL (3.29-11.43)
[2024-05-22 05:32] LABS: Glucose 78 mg/dL (65-115)
[2024-05-22 05:55] LABS: Anion Gap 14.7 (5-19); Blood Urea Nitrogen 45 mg/dL (8-23); Calcium 8.3 mg/dL (8.5-10.5); Carbon Dioxide 22 mmol/L (22-29); Chloride 105 mmol/L (98-107); Creatinine Clr Calc Pharmacy 30.4253; Glomerular Filtration Rate 19.4 mL/min (90-130); Magnesium 2.1 mg/dL (1.7-2.3); Osmolality Calculated 296 mOsm/kg (285-295); Potassium 3.7 mmol/L (3.5-5.1); Sodium 138 mmol/L (136-145)
[2024-05-22 06:30] LABS: Glucose Point of Care 73 mg/dL (70-110)
[2024-05-22] MEDS: metoprolol tartrate 25 mg Tablet PO ×2 (08:20→17:26)
[2024-05-22] MEDS: levothyroxine 25 mcg Tablet 50 MCG PO (08:20)
[2024-05-22] MEDS: aspirin 81 mg EC Tablet PO (08:20)
[2024-05-22 11:51] LABS: Glucose Point of Care 97 mg/dL (70-110)
[2024-05-22] MEDS: metroNIDAZOLE IV 500 MG/100 ML PREMIX 100 MG IV ×2 (13:55→20:17)
[2024-05-22] MEDS: ciprofloxacin 400 MG/200 ML PREMIX 200 MG IV (13:58)
--- NOTE | 2024-05-22 14:05 | P.PN_ITS ---
Subjective 2 Subjective: Still reports diarrhea. States he has gone 4 times to the bathroom and having watery diarrhea. Abdominal ultrasound is still pending. C. difficile is negative. Other stool studies are pending. Vitals/I&O/Wt Last Vital Signs Temp 98.3 F 05/22/24 11:31 Pulse 77 05/22/24 11:31 Resp 16 05/22/24 11:31 BP 138/72 05/22/24 11:31 Pulse Ox 96 05/22/24 11:31 O2 Del Method Room Air 05/22/24 11:31 05/21/24 05/22/24 05/22/24 22:59 06:59 14:59 Intake Total 120 / 1480 120 / 120 Balance 120 / 1480 120 / 120 Weight last 48 hrs Weight 151.131 kg Weight 159.353 kg Physical Exam 2 Narrative: Morbidly obese male Pleasant and cooperative No active nausea vomiting diarrhea or chest pain Currently on 2 L nasal cannula No abdominal pain Lower extremity 3+ edema Distended nontender abdomen, soft S1, S2 No distress, patient is able to lay flat Hemodynamically stable Clinically does not look dehydrated Data 05/22/24 04:51 05/22/24 04:51 Micro: Microbiology 05/21/24 09:51 Stool Lactoferrin - Final Stool A&P Assessment and plan (1) Morbid obesity due to excess calories: (2) Gastroenteritis: (3) Acute on chronic kidney failure: Qualifiers: Acute renal failure type: unspecified Chronic kidney disease stage: u nspecified stage Qualified Code(s): N17.9 - Acute kidney failure, unspecified; N18.9 - Chronic kidney disease, unspecified (4) Inflammatory arthritis: (5) TRU (obstructive sleep apnea): Plan Acute on chronic kidney disease stage III Stop nephrotoxic agent such as lisinopril, leflunomide and Lasix Patient is following up with a ball machine operator in [place], I will rule out postrenal obstruction, Request CT abdomen pelvis without contrast Patient has received IV fluids which has improved his creatinine Creatinine at baseline CBC on 2 Please consult nephrology in the morning, there is no urgency/acute indication for nephrology consultation overnight, no hyperkalemia, patient is not acidotic, check phosphorus and magnesium Patient has received 500 mL normal saline, I will discontinue fluids after 1 L IV fluid is administered Fever with diarrhea Will request CT abdomen pelvis without contrast Currently afebrile I do not see any leukocytosis, no recent use of antibiotics If gets 3 loose stools in the hospital may need C. difficile rule out Type II diabetic reduce the dose of insulin, use sliding scale Diastolic heart failure with underlying sleep apnea: Use CPAP at nighttime, holding Lasix for now Full code 05/22/2024 -Placed on ciprofloxacin and Flagyl today. ? Creatinine at baseline Fever has subsided C. difficile is negative Continue to monitor. Await abdominal ultrasound. Possibility of cholecystitis? Denies any right upper quadrant pain or cramping. I have asked nursing staff to contact virtual radiology physician for expediting results of abdominal ultrasound. Attestations 2 Medical Necessity Statement*: Anticipating more than 2 midnights for management evaluation of acute on chronic kidney disease stage III Diagnoses Morbid obesity due to excess calories E66.01 Gastroenteritis K52.9 Acute on chronic kidney failure N17.9; N18.9 Acute renal failure type: unspecified Chronic kidney disease stage: unspecified stage Inflammatory arthritis M19.90 TRU (obstructive sleep apnea) G47.33
--- NOTE | 2024-05-22 15:56 | MRR_ITS ---
PROCEDURE INFORMATION: Exam: MR Abdomen Without Contrast, Biliary System Exam date and time: 05/22/2024 4:40 PM Age: 68 years old Clinical indication: Abdominal pain; Localized; Right upper quadrant (ruq); Additional info: Dilated common bile duct, diarrhea, abdominal pain TECHNIQUE: Imaging protocol: MR of the abdomen without contrast. Exam focused on the biliary system and pancreatic ducts. Routine 3D-MRCP images were acquired and processed without radiologist supervision. COMPARISON: CT abdomen pelvis wo con [id number] 05/21/2024 6:50 AM FINDINGS: Pleural spaces: Trace bilateral pleural effusions. Liver: No mass. Gallbladder and biliary ducts: Multiple gallstones. There is gallbladder wall thickening. There is mild pericholecystic inflammatory changes. No biliary dilatation. The CBD measures 5 mm. Pancreas: Unremarkable. No ductal dilation. Kidneys: Bilateral simple renal cysts. No hydronephrosis on either side. Intraperitoneal space: No fluid collection. MR/MR MRCP [id number] IMPRESSION: Acute calculus cholecystitis with no CBD stone or biliary dilatation. COMMENTS: Consistent with the [employer]'s Incidental Findings Committee white paper (J Am Lexy Radiol 2018): Any incidental renal lesion less than 1 cm or classified as too small to characterize, or any incidental cystic renal lesion characterized as simple-appearing, is likely benign. No follow-up imaging is recommended for these lesions per consensus recommendations based on imaging criteria.
[2024-05-22 16:36] LABS: Alanine Aminotransferase 34 U/L (0-41); Albumin Level 2.4 g/dL (3.5-5.2); Alkaline Phosphatase 98 U/L (40-130); Aspartate Amino Transferase 37 U/L (0-40); Globulin 3.6 g/dL (1.3-4.6); Total Bilirubin 0.4 mg/dL (0.15-1.2)
[2024-05-22 17:20] LABS: Glucose Point of Care 124 mg/dL (70-110)
[2024-05-22] MEDS: prazosin 1 mg Capsule 2 MG PO (20:16)
[2024-05-22] MEDS: insulin glargine 100 units/1 mL 10 UNIT SUBCUT (20:17)
[2024-05-22 20:18] LABS: Glucose Point of Care 144 mg/dL (70-110)
--- NOTE | 2024-05-22 21:14 | P.CONIM_ITS ---
Providers/Reason For Consult 2 Consulting Physician/Specialty*: General Surgery Reason for Consult*: Acute cholecystitis Attending Physician: Mary Morales MD Primary Care Provider: Antoinette Laird MD History of Present Illness History of Present Illness Bayron Omer is a 68 year old male With history of multiple comorbidities including ischemic cardiomyopathy and CKD who was admitted to the hospital with acute on chronic kidney injury nausea vomiting diarrhea. Current to the patient he has been having symptoms about 1 week before presenting to the hospital. On presentation CT of the abdomen pelvis was done and show evidence of pericholecystic inflammation concerning for possibility of acute cholecystitis as well as a dilated CBD, MRCP was done showing evidence of the same, I was consulted for possibility of acute cholecystitis. Patient denies any abdominal pain at this time just minimal discomfort. Review of Systems 2 General: Reports: 10 or more systems reviewed and unremarkable except in HPI and below Medications/Allergies Home Medications Medication Instructions Recorded Confirmed Last Taken Type acetaminophen 500 mg tablet 500 mg PO Q6H PRN Pain 08/11/19 05/21/24 Unknown History ascorbic acid (vitamin C) 500 mg 500 mg PO DAILY 08/11/19 05/21/24 Unknown History capsule aspirin 81 mg tablet,delayed 81 mg PO DAILY 08/11/19 05/21/24 Unknown History release (Adult Low Dose Aspirin) atorvastatin 80 mg tablet 40 mg PO DAILY 08/11/19 05/21/24 Unknown History bupropion HCl 150 mg tablet,12 hr 150 mg PO QAM 08/11/19 05/21/24 Unknown History sustained-release cholecalciferol (vitamin D3) 10 400 unit PO DAILY 08/11/19 05/21/24 Unknown History mcg (400 unit) capsule clopidogrel 75 mg tablet 75 mg PO DAILY 08/11/19 05/21/24 Unknown History gabapentin 100 mg capsule See Rx Instructions .Route .COMPLEX 08/11/19 05/21/24 Unknown History lisinopril 10 mg tablet 10 mg PO DAILY 08/11/19 05/21/24 Unknown History loratadine 10 mg tablet 10 mg PO DAILY 08/11/19 05/21/24 Unknown History methocarbamol 500 mg tablet 500 mg PO TID 08/11/19 05/21/24 Unknown History multivitamin 1 tab PO DAILY 08/11/19 05/21/24 Unknown History prazosin 2 mg capsule 2 mg PO .at bedtime 08/11/19 05/21/24 Unknown History testosterone cypionate 200 mg/mL 400 mg IM .monthly 08/11/19 05/21/24 Unknown History intramuscular oil (Depo-Testosterone) zinc acetate 25 mg (zinc) capsule 50 mg PO DAILY 06/22/20 05/21/24 Unknown History (Galzin) levothyroxine 25 mcg tablet 50 mcg PO DAILY 08/08/20 05/21/24 Unknown History nitroglycerin 0.4 mg sublingual 0.4 mg sublingual Q5M PRN chest 08/08/20 05/21/24 Unknown Rx tablet (Nitrostat) pain #50 tabs metoprolol tartrate 25 mg tablet 25 mg PO BID 02/08/21 05/21/24 Unknown History Diabetic shoes with 3 sets of #1 ea 03/18/23 05/21/24 Unknown Rx insoles diabetic shoes with 3 inserts #1 ea 06/25/23 05/21/24 Unknown Rx night splint #1 ea 06/25/23 05/21/24 Unknown Rx adalimumab 40 mg/0.8 mL 40 mg (0.8 mL) SUBCUT Q14D #2 ea 02/25/24 05/21/24 Unknown Rx subcutaneous pen kit (Humira Pen) leflunomide 20 mg tablet 20 mg PO DAILY #90 tabs 02/25/24 05/21/24 Unknown Rx diabetic shoes with 3 insterts #1 ea 03/23/24 05/21/24 Unknown Rx adalimumab-bwwd 40 mg/0.8 mL 40 mg SUBCUT Q14D 05/21/24 05/21/24 Unknown History subcutaneous auto-injector diclofenac sodium 1 % topical gel 2 g topical QID 05/21/24 05/21/24 Unknown History empagliflozin 25 mg tablet 25 mg PO DAILY 05/21/24 05/21/24 Unknown History ferrous gluconate 324 mg (37.5 mg 324 mg PO DAILY 05/21/24 05/21/24 Unknown History iron) tablet furosemide 20 mg tablet 20 mg PO QAM 05/21/24 05/21/24 Unknown History lidocaine 5 % topical patch 1 patch topical DAILY 05/21/24 05/21/24 Unknown History Allergies Allergy/AdvReac Type Severity Reaction Status Date / Time No Known Allergies Allergy Verified 03/23/24 09:50 Current Medications Generic Name Dose Route Start Last Admin Trade Name Freq PRN Reason Stop Dose Admin Acetaminophen 500 mg 05/21/24 00:29 05/22/24 00:25 Acetaminophen 500 Mg Tablet PO 500 mg Q4H PRN Administration fever Aspirin 81 mg 05/21/24 09:00 05/22/24 08:20 Aspirin 81 Mg Ec Tablet PO 81 mg DAILY MARIELENA Administration Ciprofloxacin/Dextrose 400 mg in 200 mls @ 200 mls/hr 05/22/24 13:15 05/22/24 15:14 Cipro IV Infused Q12H MARIELENA Infusion Protocol Metronidazole 500 mg in 100 mls @ 100 mls/hr 05/22/24 13:15 05/22/24 20:54 Flagyl Iv IV Infused Q8H MARIELENA Infusion Protocol Insulin Glargine 10 unit 05/21/24 21:00 05/22/24 20:17 Insulin Glargine 100 Units/1 Ml SUBCUT 10 unit BEDTIME MARIELENA Administration Insulin Human Lispro 0 unit 05/21/24 08:00 05/22/24 17:17 Insulin Lispro 100 Unit/1 Ml SUBCUT Not Given TIDWM MARIELENA Protocol Levothyroxine Sodium 50 mcg 05/21/24 09:00 05/22/24 08:20 Levothyroxine 25 Mcg Tablet PO 50 mcg DAILY MARIELENA Administration Metoprolol Tartrate 25 mg 05/21/24 09:00 05/22/24 17:26 Metoprolol Tartrate 25 Mg Tablet PO 25 mg BID MARIELENA Administration Prazosin HCl 2 mg 05/21/24 21:00 05/22/24 20:16 Prazosin 1 Mg Capsule PO 2 mg BEDTIME MARIELENA Administration PFSH Acute 2 PFSH: Medical History Polyarthralgia History of nonmelanoma skin cancer High risk medication use Inflammatory arthritis 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 Morbid obesity due to excess calories Atherosclerosis of coronary artery of [place] heart without angina pectoris Diabetes 1.5, managed as type 2 Dyslipidemia (high LDL; low HDL) Hypertension TRU (obstructive sleep apnea) Myocardial infarction CHF (congestive heart failure) Surgical History Hx of cataract extraction Hx of circumcision History of heart artery stent H/O wisdom tooth extraction Family History Father CAD (coronary artery disease) Grandfather Cancer Mother Chronic kidney disease (CKD) Stroke Sister Diabetes Denies family history of Clotting disorder Dementia Suicide Anesthesia complication Bleeding disorder Lung disease Social History Smoking and tobacco/nicotine status: never used tobacco/nicotine Alcohol intake: current Alcohol intake frequency: holidays/special occasions only Substance/Drug Use: never Vitals/I&O/Wt Last Vital Signs Temp 100.7 F H 05/22/24 20:00 Pulse 96 05/22/24 20:00 Resp 18 05/22/24 20:00 BP 128/57 05/22/24 20:00 Pulse Ox 93 05/22/24 20:00 O2 Del Method Room Air 05/22/24 20:00 05/22/24 05/22/24 05/22/24 06:59 14:59 22:59 Intake Total 220 / 220 300 / 520 Balance 220 / 220 300 / 520 Weight last 48 hrs Weight 333 lb 3 oz Weight 351 lb 5 oz Physical Exam 2 GI: OTHER: Abdominal exam is benign, abdomen is soft nontender nondistended at this time. 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 Imaging show evidence of acute cholecystitis despite the fact that the patient does not have any abdominal pain at the moment just minimal overall discomfort. At the moment of the evaluation the patient does not meet criteria of acute cholecystitis, he only has positive imaging findings but does not have right upper quadrant pain or tenderness the white count is also normal and all the LFTs are normal. From his symptoms I think probably he did have an episode of cholecystitis that this started more than a week ago and now has started to subside. Current clinical guidelines indicate that laparoscopic cholecystectomy may be saved up to 5 days from beginning of symptoms but at the moment it has been more than 1 week of symptoms for this patient. Imaging findings that we will show evidence of some pericholecystic inflammation that we can find once the inflammation has progressed for some time. Furthermore patient Charlson comorbidity index is 8 and his ASA score is 3. With patients with this characteristics the current literature suggests management with resuscitation and antibiotics and in the case of failure of therapy patient will require a cholecystostomy tube and a delay cholecystectomy in 6 weeks. I have explained this to the patient, at the moment I think his episode of cholecystitis may be resolving as patient does not have abdominal pain is tolerating a clear liquid diet and he was just starting antibiotics today. My recommendation will be to continue him for a 10-day course of antibiotics, if there is recurrent symptoms or if there is worsening of the clinical status my recommendation will be for IR evaluation for cholecystostomy tube placement. Patient shows understanding agrees with the plan. -Continue IV antibiotics -Clear liquid diet and advance diet as tolerated -If failure of therapy with antibiotics patient will require cholecystostomy tube placement by IR or transfer to higher level of care for advanced biliary capabilities. Coding Level of Care Code 10895 Diagnoses Morbid obesity due to excess calories E66.01 Cholecystitis K81.9 Acute on chronic kidney failure N17.9; N18.9 Acute renal failure type: unspecified Chronic kidney disease stage: unspecified stage PVD (peripheral vascular disease) I73.9 Ischemic cardiomyopathy I25.5 Chronic diastolic heart failure secondary to coronary artery disease I50.32; I25.10 Heart failure chronicity: chronic
[2024-05-23] VITALS (7 sets, daily range): BP systolic 107–153; BP diastolic 55–79; PULSE 80–102; RESP 16–18; TEMP 36.8–37.3; O2SAT 92–97
[2024-05-23] MEDS: ciprofloxacin 400 MG/200 ML PREMIX 200 MG IV ×2 (00:22→12:24)
[2024-05-23 03:31] LABS: Basophils # 0.1 10^3/uL (0.0-0.1); Basophils % 0.7 %; Eosinophils # 0.1 10^3/uL (0.0-0.8); Hematocrit 39.4 % (37-53); Lymphocytes # 0.9 10^3/uL (0.8-4.8); Lymphocytes % 8.9 %; Mean Corpuscular Hemoglobin 29.4 pg (27-33); Mean Corpuscular Volume 91.8 fl (82-101); Mean Platelet Volume 12.6 fL (7.4-10.4); Monocytes # 0.9 10^3/uL (0.2-0.9); Monocytes % 8.6 %; Neutrophils # 8.24 10^3/uL (1.8-7.7); Neutrophils % 79.9 %; Nucleated Red Blood Cells % 0 %; Platelet Count 159 10^3/cmm (157-399); Red Blood Count 4.29 10^6/uL (3.85-5.65); Red Cell Distribution Width 14.7 % (12.1-15.1); White Blood Count 10.31 10^3/uL (3.29-11.43)
[2024-05-23 04:03] LABS: Anion Gap 17.3 (5-19); Blood Urea Nitrogen 40 mg/dL (8-23); Calcium 8.3 mg/dL (8.5-10.5); Carbon Dioxide 22 mmol/L (22-29); Chloride 105 mmol/L (98-107); Creatinine Clr Calc Pharmacy 32.4537; Glomerular Filtration Rate 20.9 mL/min (90-130); Glucose 146 mg/dL (65-115); Osmolality Calculated 302 mOsm/kg (285-295); Potassium 4.3 mmol/L (3.5-5.1); Sodium 140 mmol/L (136-145)
[2024-05-23] MEDS: metroNIDAZOLE IV 500 MG/100 ML PREMIX 100 MG IV ×3 (05:43→20:27)
--- NOTE | 2024-05-23 06:05 | P.PN_ITS ---
Subjective 2 Subjective: seen today no acute events overnight - seen by general surgery yesterday on full liquid diet Vitals/I&O/Wt Last Vital Signs Temp 98.9 F 05/23/24 04:00 Pulse 86 05/23/24 04:00 Resp 16 05/23/24 04:00 BP 116/58 05/23/24 04:00 Pulse Ox 93 05/23/24 04:00 O2 Del Method Room Air 05/23/24 04:00 05/22/24 05/22/24 05/23/24 14:59 22:59 06:59 Intake Total 220 / 220 660 / 880 560 / 1440 Balance 220 / 220 660 / 880 560 / 1440 Weight last 48 hrs Weight 151.131 kg Weight 159.353 kg Physical Exam 2 Narrative: Morbidly obese male Pleasant and cooperative No active nausea vomiting diarrhea or chest pain on room air No abdominal pain Lower extremity 2+ edema nontender abdomen, soft, RUQ nontender, no rebound tenderness S1, S2 No distress, patient is able to lay flat Hemodynamically stable Data 05/23/24 02:26 05/23/24 02:26 A&P Assessment and plan (1) Morbid obesity due to excess calories: (2) Gastroenteritis: (3) Acute on chronic kidney failure: Qualifiers: Acute renal failure type: unspecified Chronic kidney disease stage: u nspecified stage Qualified Code(s): N17.9 - Acute kidney failure, unspecified; N18.9 - Chronic kidney disease, unspecified (4) Inflammatory arthritis: (5) TRU (obstructive sleep apnea): Plan Acute on chronic kidney disease stage III Stop nephrotoxic agent such as lisinopril, leflunomide and Lasix Patient is following up with a genetics physician in [place], I will rule out postrenal obstruction, Request CT abdomen pelvis without contrast Patient has received IV fluids which has improved his creatinine Creatinine at baseline CBC on 2 Please consult nephrology in the morning, there is no urgency/acute indication for nephrology consultation overnight, no hyperkalemia, patient is not acidotic, check phosphorus and magnesium Patient has received 500 mL normal saline, I will discontinue fluids after 1 L IV fluid is administered Fever with diarrhea Will request CT abdomen pelvis without contrast Currently afebrile I do not see any leukocytosis, no recent use of antibiotics If gets 3 loose stools in the hospital may need C. difficile rule out Type II diabetic reduce the dose of insulin, use sliding scale Diastolic heart failure with underlying sleep apnea: Use CPAP at nighttime, holding Lasix for now Full code 05/22/2024 -Placed on ciprofloxacin and Flagyl today. ? Creatinine at baseline Fever has subsided C. difficile is negative Continue to monitor. Await abdominal ultrasound. Possibility of cholecystitis? Denies any right upper quadrant pain or cramping. I have asked nursing staff to contact virtual radiology physician for expediting results of abdominal ultrasound. 05/23/2024 - continue IV cipro and flagyl - consult nephrology. - abd us complete, mrcp complete showing acute calculous cholecystitis - general surgery consulted. recommend IV abx with planned outpatient cholecystectomy in 6 weeks unless symptoms worsen. - continue current management at this time. continue full liquid diet Attestations 2 Medical Necessity Statement*: Anticipating more than 2 midnights for management evaluation of acute on chronic kidney disease stage III Diagnoses Morbid obesity due to excess calories E66.01 Gastroenteritis K52.9 Acute on chronic kidney failure N17.9; N18.9 Acute renal failure type: unspecified Chronic kidney disease stage: unspecified stage Inflammatory arthritis M19.90 TRU (obstructive sleep apnea) G47.33
[2024-05-23 06:37] LABS: Glucose Point of Care 118 mg/dL (70-110)
--- NOTE | 2024-05-23 08:40 | P.CONIM_ITS ---
Providers/Reason For Consult 2 Consulting Physician/Specialty*: [facility]/Nephrology Reason for Consult*: Acute on CKD Attending Physician: Mary Morales MD Primary Care Provider: Antoinette Laird MD History of Present Illness History of Present Illness Bayron Omer is a 68 year old male Patient is a 68-year-old male with past medical history of hypertension, diabetes, dyslipidemia, coronary artery disease, congestive cardiac failure, peripheral vascular disease, chronic kidney disease with a baseline creatinine in the 2 range was sent to the hospital due to abnormal lab. Patient followed by [facility] by Dr. Alvarado. Patient was also, diarrhea and poor p.o. intake along with nausea at home. Lab data on presentation showed creatinine of 4.2. CT scan of the abdomen has showed cystitis and also had MRCP yesterday that confirmed. It is without any CBD dilation or stones. Patient also has general surgery. He received IV fluids and creatinine has trended down to 3.0 today. He denies any complaints but still have poor p.o. intake and has loose stools. . Medications/Allergies Home Medications Medication Instructions Recorded Confirmed Last Taken Type acetaminophen 500 mg tablet 500 mg PO Q6H PRN Pain 08/11/19 05/21/24 Unknown History ascorbic acid (vitamin C) 500 mg 500 mg PO DAILY 08/11/19 05/21/24 Unknown History capsule aspirin 81 mg tablet,delayed 81 mg PO DAILY 08/11/19 05/21/24 Unknown History release (Adult Low Dose Aspirin) atorvastatin 80 mg tablet 40 mg PO DAILY 08/11/19 05/21/24 Unknown History bupropion HCl 150 mg tablet,12 hr 150 mg PO QAM 08/11/19 05/21/24 Unknown History sustained-release cholecalciferol (vitamin D3) 10 400 unit PO DAILY 08/11/19 05/21/24 Unknown History mcg (400 unit) capsule clopidogrel 75 mg tablet 75 mg PO DAILY 08/11/19 05/21/24 Unknown History gabapentin 100 mg capsule See Rx Instructions .Route .COMPLEX 08/11/19 05/21/24 Unknown History lisinopril 10 mg tablet 10 mg PO DAILY 08/11/19 05/21/24 Unknown History loratadine 10 mg tablet 10 mg PO DAILY 08/11/19 05/21/24 Unknown History methocarbamol 500 mg tablet 500 mg PO TID 08/11/19 05/21/24 Unknown History multivitamin 1 tab PO DAILY 08/11/19 05/21/24 Unknown History prazosin 2 mg capsule 2 mg PO .at bedtime 08/11/19 05/21/24 Unknown History testosterone cypionate 200 mg/mL 400 mg IM .monthly 08/11/19 05/21/24 Unknown History intramuscular oil (Depo-Testosterone) zinc acetate 25 mg (zinc) capsule 50 mg PO DAILY 06/22/20 05/21/24 Unknown History (Galzin) levothyroxine 25 mcg tablet 50 mcg PO DAILY 08/08/20 05/21/24 Unknown History nitroglycerin 0.4 mg sublingual 0.4 mg sublingual Q5M PRN chest 08/08/20 05/21/24 Unknown Rx tablet (Nitrostat) pain #50 tabs metoprolol tartrate 25 mg tablet 25 mg PO BID 02/08/21 05/21/24 Unknown History Diabetic shoes with 3 sets of #1 ea 03/18/23 05/21/24 Unknown Rx insoles diabetic shoes with 3 inserts #1 ea 06/25/23 05/21/24 Unknown Rx night splint #1 ea 06/25/23 05/21/24 Unknown Rx adalimumab 40 mg/0.8 mL 40 mg (0.8 mL) SUBCUT Q14D #2 ea 02/25/24 05/21/24 Unknown Rx subcutaneous pen kit (Humira Pen) leflunomide 20 mg tablet 20 mg PO DAILY #90 tabs 02/25/24 05/21/24 Unknown Rx diabetic shoes with 3 insterts #1 ea 03/23/24 05/21/24 Unknown Rx adalimumab-bwwd 40 mg/0.8 mL 40 mg SUBCUT Q14D 05/21/24 05/21/24 Unknown History subcutaneous auto-injector diclofenac sodium 1 % topical gel 2 g topical QID 05/21/24 05/21/24 Unknown History empagliflozin 25 mg tablet 25 mg PO DAILY 05/21/24 05/21/24 Unknown History ferrous gluconate 324 mg (37.5 mg 324 mg PO DAILY 05/21/24 05/21/24 Unknown History iron) tablet furosemide 20 mg tablet 20 mg PO QAM 05/21/24 05/21/24 Unknown History lidocaine 5 % topical patch 1 patch topical DAILY 05/21/24 05/21/24 Unknown History Allergies Allergy/AdvReac Type Severity Reaction Status Date / Time No Known Allergies Allergy Verified 03/23/24 09:50 Current Medications Generic Name Dose Route Start Last Admin Trade Name Uri PRN Reason Stop Dose Admin Acetaminophen 500 mg 05/21/24 00:29 05/22/24 00:25 Acetaminophen 500 Mg Tablet PO 500 mg Q4H PRN Administration fever Aspirin 81 mg 05/21/24 09:00 05/22/24 08:20 Aspirin 81 Mg Ec Tablet PO 81 mg DAILY MARIELENA Administration Ciprofloxacin/Dextrose 400 mg in 200 mls @ 200 mls/hr 05/22/24 13:15 05/23/24 01:25 Cipro IV Infused Q12H MARIELENA Infusion Protocol Metronidazole 500 mg in 100 mls @ 100 mls/hr 05/22/24 13:15 05/23/24 06:26 Flagyl Iv IV Infused Q8H MARIELENA Infusion Protocol Insulin Glargine 10 unit 05/21/24 21:00 05/22/24 20:17 Insulin Glargine 100 Units/1 Ml SUBCUT 10 unit BEDTIME MARIELENA Administration Insulin Human Lispro 0 unit 05/21/24 08:00 05/23/24 08:19 Insulin Lispro 100 Unit/1 Ml SUBCUT Not Given TIDWM MARIELENA Protocol Levothyroxine Sodium 50 mcg 05/21/24 09:00 05/22/24 08:20 Levothyroxine 25 Mcg Tablet PO 50 mcg DAILY MARIELENA Administration Metoprolol Tartrate 25 mg 05/21/24 09:00 05/22/24 17:26 Metoprolol Tartrate 25 Mg Tablet PO 25 mg BID MARIELENA Administration Prazosin HCl 2 mg 05/21/24 21:00 05/22/24 20:16 Prazosin 1 Mg Capsule PO 2 mg BEDTIME MARIELENA Administration PFSH Acute 2 PFSH: Medical History Polyarthralgia History of nonmelanoma skin cancer High risk medication use Inflammatory arthritis 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 Morbid obesity due to excess calories Atherosclerosis of coronary artery of inupiat heart without angina pectoris Diabetes 1.5, managed as type 2 Dyslipidemia (high LDL; low HDL) Hypertension TRU (obstructive sleep apnea) Myocardial infarction CHF (congestive heart failure) Surgical History Hx of cataract extraction Hx of circumcision History of heart artery stent H/O wisdom tooth extraction Family History Father CAD (coronary artery disease) Grandfather Cancer Mother Chronic kidney disease (CKD) Stroke Sister Diabetes Denies family history of Clotting disorder Dementia Suicide Anesthesia complication Bleeding disorder Lung disease Social History Smoking and tobacco/nicotine status: never used tobacco/nicotine Alcohol intake: current Alcohol intake frequency: holidays/special occasions only Substance/Drug Use: never Vitals/I&O/Wt Last Vital Signs Temp 98.3 F 05/23/24 08:06 Pulse 94 05/23/24 08:06 Resp 18 05/23/24 08:06 BP 124/73 05/23/24 08:06 Pulse Ox 93 05/23/24 08:06 O2 Del Method Room Air 05/23/24 08:06 05/22/24 05/23/24 05/23/24 22:59 06:59 14:59 Intake Total 660 / 880 660 / 1540 480 / 480 Balance 660 / 880 660 / 1540 480 / 480 Weight last 48 hrs Weight 151.182 kg Weight 151.131 kg Physical Exam 2 Narrative: Awake alert, no distress Awake alert no distress , On room air he denies any complaints S 1 S2 regular rate and rhythm per report Lungs clear per report Intact neuroexam Data 05/23/24 02:26 05/23/24 02:26 A&P Assessment and plan (1) Acute on chronic kidney failure: Qualifiers: Acute renal failure type: unspecified Chronic kidney disease stage: u nspecified stage Qualified Code(s): N17.9 - Acute kidney failure, unspecified; N18.9 - Chronic kidney disease, unspecified Plan 1. Acute on chronic kidney disease stage III: Baseline creatinine in the 2 range, creatinine on presentation was about 4, status post IV fluids and creatinine has trended down to 3.0 today. No obstruction on CT. UA with 1+ protein. Will give gentle IV fluids again today due to poor p.o. intake and diarrhea. Patient followed by nephrology Dr. Alvarado as outpatient. No IV contrast exposure. 2. Acute cholecystitis. Being managed medically for now, followed by general surgery 3. History of hypertension, was on lisinopril and Lasix, which are on hold, blood pressure in the 1 teens currently, monitor 4. History of inflammatory arthritis, on leflunomide, on hold now Patient evaluated using audiovisual cart. Time spent 40 minutes Consult Attestations 2 Medical Necessity Statement: per mediicne team Coding Level of Care Code Acute Code for g Fwd Diagnoses Acute on chronic kidney failure N17.9; N18.9 Acute renal failure type: unspecified Chronic kidney disease stage: unspecified stage
[2024-05-23] MEDS: aspirin 81 mg EC Tablet PO (08:42)
[2024-05-23] MEDS: metoprolol tartrate 25 mg Tablet PO ×2 (08:42→18:21)
[2024-05-23] MEDS: levothyroxine 25 mcg Tablet 50 MCG PO (08:42)
[2024-05-23] MEDS: sodium chloride 0.9% 1,000 ML 75 ML IV ×2 (09:41→20:27)
--- NOTE | 2024-05-23 09:43 | P.PN_ITS ---
Subjective 2 Subjective: Patient doing much better this morning, no significant abdominal pain has tolerated full liquid diet. He says that he overall he feels much better with more energy and hungry. Vitals/I&O/Wt Last Vital Signs Temp 98.3 F 05/23/24 08:06 Pulse 102 H 05/23/24 08:35 Resp 16 05/23/24 08:35 BP 124/73 05/23/24 08:06 Pulse Ox 94 05/23/24 08:35 O2 Del Method Room Air 05/23/24 08:35 05/22/24 05/23/24 05/23/24 22:59 06:59 14:59 Intake Total 660 / 880 660 / 1540 480 / 480 Balance 660 / 880 660 / 1540 480 / 480 Weight last 48 hrs Weight 333 lb 4.8 oz Weight 333 lb 3 oz Physical Exam 2 GI: OTHER: Abdominal examination is benign abdomen soft, very minimal tenderness in right upper quadrant nondistended. Data 05/23/24 02:26 05/23/24 02:26 A&P Assessment and plan (1) Morbid obesity due to excess calories: (2) Gastroenteritis: (3) Cholecystitis: Plan Patient showing good progression with IV resuscitation and antibiotic management for possible acute cholecystitis, patient will need to complete that 10-day course of p.o. antibiotics as outpatient and then we can meet in the clinic to discuss possibility of a elective cholecystectomy 6 to 8 weeks after this episode. He is cleared to be advance as tolerated in the diet, I have explained that once he is tolerating diet he can be cleared for discharge from my standpoint but we also need to make sure that his kidney function is good medical team is taking care of that. Attestations 2 Medical Necessity Statement*: Per medical team Coding Level of Care Code Acute Code for g Fwd Diagnoses Morbid obesity due to excess calories E66.01 Gastroenteritis K52.9 Cholecystitis K81.9
[2024-05-23 11:05] LABS: Glucose Point of Care 188 mg/dL (70-110)
[2024-05-23] MEDS: insulin lispro 100 unit/1 mL SUBCUT (12:24)
[2024-05-23 12:31] LABS: Glucose Point of Care 169 mg/dL (70-110)
[2024-05-23 17:24] LABS: Glucose Point of Care 102 mg/dL (70-110)
[2024-05-23 20:22] LABS: Glucose Point of Care 138 mg/dL (70-110)
[2024-05-23] MEDS: prazosin 1 mg Capsule 2 MG PO (20:28)
[2024-05-23] MEDS: insulin glargine 100 units/1 mL 10 UNIT SUBCUT (20:31)
[2024-05-24] VITALS: BP 104/57; PULSE 89; RESP 15; TEMP 36.9; O2SAT 96
[2024-05-24] MEDS: ciprofloxacin 400 MG/200 ML PREMIX 200 MG IV ×2 (00:59→12:47)
[2024-05-24 04:00] VITALS: BP 100/55; PULSE 85; RESP 16; TEMP 36.9; O2SAT 96
[2024-05-24] MEDS: metroNIDAZOLE IV 500 MG/100 ML PREMIX 100 MG IV ×2 (05:17→12:48)
[2024-05-24 06:26] LABS: Glucose Point of Care 106 mg/dL (70-110)
[2024-05-24 07:47] VITALS: BP 143/66; PULSE 83; RESP 18; TEMP 36.7; O2SAT 96
[2024-05-24] MEDS: aspirin 81 mg EC Tablet PO (08:12)
[2024-05-24] MEDS: levothyroxine 25 mcg Tablet 50 MCG PO (08:12)
[2024-05-24] MEDS: metoprolol tartrate 25 mg Tablet PO (08:12)
--- NOTE | 2024-05-24 08:18 | P.PN_ITS ---
Subjective 2 Subjective: feels better. no n/v/f/c/hunt/d/leg pains/ sob Medications: Reviewed: Yes Medication Review Details: Current Medications Acetaminophen (Acetaminophen 500 Mg Tablet) 500 mg PO Q4H PRN PRN Reason: fever Last Admin: 05/22/24 00:25 Dose: 500 mg Albuterol/Ipratropium (Ipratropium-Albuterol 3 Ml Neb) 3 ml INHALATION Q6H PRN PRN Reason: SHORTNESS OF BREATH Aspirin (Aspirin 81 Mg Ec Tablet) 81 mg PO DAILY [facility] Last Admin: 05/24/24 08:12 Dose: 81 mg Glucagon (Glucagon 1 Mg/Ml Kit 1 Ml) 1 mg IM ONCE PRN; Protocol PRN Reason: Adult Acute Hypoglycemia Nursing Prot. Dextrose (D5w) 500 mls @ 0 mls/hr IV ONCE PRN; Protocol PRN Reason: Adult Acute Hypoglycemia Prot Dextrose (D10w) 125 mls @ 750 mls/hr IV PRN PRN; Protocol PRN Reason: Adult Acute Hypoglycemia Nursing Protocol Dextrose (D10w) 250 mls @ 1,000 mls/hr IV PRN PRN; Protocol PRN Reason: Adult Acute Hypoglycemia Nursing Protocol Ciprofloxacin/Dextrose (Cipro) 400 mg in 200 mls @ 200 mls/hr IV Q12H MARIELENA; Protocol Last Infusion: 05/24/24 01:58 Dose: Infused Metronidazole (Flagyl Iv) 500 mg in 100 mls @ 100 mls/hr IV Q8H MARIELENA; Protocol Last Infusion: 05/24/24 06:23 Dose: Infused Sodium Chloride (Sodium Chloride 0.9%) 1,000 mls @ 75 mls/hr IV .[id number] MARIELENA Last Admin: 05/23/24 20:27 Dose: 75 mls/hr Insulin Glargine (Insulin Glargine 100 Units/1 Ml) 10 unit SUBCUT BEDTIME MARIELENA Last Admin: 05/23/24 20:31 Dose: 10 unit Insulin Human Lispro (Insulin Lispro 100 Unit/1 Ml) 0 unit SUBCUT TIDWM MARIELENA; Protocol Last Admin: 05/24/24 07:31 Dose: Not Given Levothyroxine Sodium (Levothyroxine 25 Mcg Tablet) 50 mcg PO DAILY [facility] Last Admin: 05/24/24 08:12 Dose: 50 mcg Metoprolol Tartrate (Metoprolol Tartrate 25 Mg Tablet) 25 mg PO BID [facility] Last Admin: 05/24/24 08:12 Dose: 25 mg Ondansetron HCl (Ondansetron 2 Mg/Ml Sdv 2 Ml) 4 mg IVP Q6H PRN PRN Reason: NAUSEA AND VOMITING Prazosin HCl (Prazosin 1 Mg Capsule) 2 mg PO BEDTIME [facility] Last Admin: 05/23/24 20:28 Dose: 2 mg Vitals/I&O/Wt Last Vital Signs Temp 98.1 F 05/24/24 07:47 Pulse 83 05/24/24 07:47 Resp 18 05/24/24 07:47 BP 143/66 05/24/24 07:47 Pulse Ox 96 05/24/24 07:47 O2 Del Method Room Air 05/24/24 07:47 05/23/24 05/24/24 05/24/24 22:59 06:59 14:59 Intake Total 2107.5 / 3607.5 540 / 4147.5 Balance 2107.5 / 3607.5 540 / 4147.5 Weight last 48 hrs Weight 150.502 kg Weight 151.182 kg Physical Exam 2 Narrative: obese man in NARD vss heent- nc/at, eomi, anicteric neck supple lungs clear heart reg + s1, s2 abd soft, nt, nd, + bs ext no edema neuro a,a, o x 3 Data 05/23/24 02:26 05/23/24 02:26 A&P Assessment and plan (1) Acute on chronic kidney failure: Qualifiers: Acute renal failure type: unspecified Chronic kidney disease stage: u nspecified stage Qualified Code(s): N17.9 - Acute kidney failure, unspecified; N18.9 - Chronic kidney disease, unspecified Plan 1. Acute on chronic kidney disease stage III: Baseline creatinine in the 2 range, creatinine on presentation was about 4, status post IV fluids and creatinine has trended down to 3.0 today. No obstruction on CT. UA with 1+ protein. -continue IV fluids monitor uop and chemistries -Patient followed by nephrology Dr. Alvarado as outpatient. No IV contrast exposure. 2. Acute cholecystitis. Being managed medically for now, followed by general surgery. if needs surgery, avoid hypotension. he is at risk for TERRY 3. History of hypertension, was on lisinopril and Lasix, which are on hold, blood pressure okay 4. History of inflammatory arthritis, on leflunomide, on hold now Patient evaluated using audiovisual cart. with the aide of a RN Attestations 2 Medical Necessity Statement*: acute cholecystitis and TERRY Time Spent in Patient Care: 16 - 35 minutes (>than 50% of time sp ent in counselling and/or direct pt care on unit) . Coding Level of Care Code Acute Code for Chg Fwd Diagnoses Acute on chronic kidney failure N17.9; N18.9 Acute renal failure type: unspecified Chronic kidney disease stage: unspecified stage
[2024-05-24] MEDS: lactated ringers 1,000 ML 100 ML IV (09:09)
[2024-05-24 09:35] VITALS: PULSE 83; RESP 18; O2SAT 96
[2024-05-24 11:28] LABS: Glucose Point of Care 133 mg/dL (70-110)
[2024-05-24 11:39] VITALS: BP 134/77; PULSE 78; RESP 18; TEMP 36.6; O2SAT 96
--- NOTE | 2024-05-24 13:22 | PC.SOCIAL ---
IMM Update pg 2 of IMM Updated and reviewed w/ patient and his . Copy provided and copy dated, initialed and placed in chart.
[2024-05-24 13:25] LABS: Basophils # 0.1 10^3/uL (0.0-0.1); Basophils % 0.5 %; Eosinophils # 0.2 10^3/uL (0.0-0.8); Eosinophils % 1.7 %; Hematocrit 38.7 % (37-53); Lymphocytes # 0.7 10^3/uL (0.8-4.8); Lymphocytes % 6.4 %; Mean Corpuscular Hemoglobin 29.1 pg (27-33); Mean Corpuscular Volume 90.8 fl (82-101); Mean Platelet Volume 11.9 fL (7.4-10.4); Monocytes # 0.7 10^3/uL (0.2-0.9); Monocytes % 5.9 %; Neutrophils # 9.73 10^3/uL (1.8-7.7); Neutrophils % 84.9 %; Nucleated Red Blood Cells % 0 %; Platelet Count 199 10^3/cmm (157-399); Red Blood Count 4.26 10^6/uL (3.85-5.65); White Blood Count 11.45 10^3/uL (3.29-11.43)
[2024-05-24 13:43] LABS: Alanine Aminotransferase 43 U/L (0-41); Albumin Level 2.3 g/dL (3.5-5.2); Alkaline Phosphatase 87 U/L (40-130); Anion Gap 18.7 (5-19); Aspartate Amino Transferase 45 U/L (0-40); Blood Urea Nitrogen 39 mg/dL (8-23); Calcium 8.4 mg/dL (8.5-10.5); Carbon Dioxide 21 mmol/L (22-29); Chloride 105 mmol/L (98-107); Globulin 3.4 g/dL (1.3-4.6); Glomerular Filtration Rate 28.3 mL/min (90-130); Glucose 186 mg/dL (65-115); Osmolality Calculated 304 mOsm/kg (285-295); Potassium 4.7 mmol/L (3.5-5.1); Sodium 140 mmol/L (136-145); Total Bilirubin 0.3 mg/dL (0.15-1.2); Total Protein 5.7 g/dL (6.6-8.7)
--- NOTE | 2024-05-24 14:40 | PM.DCS ---
Discharge Providers Date of Admission: 05/20/24 23:52 Date of Discharge: May 24, 2024 Attending Provider at Admission: Vernon Zhu MD Attending Provider at Discharge: Roberto Snow Primary Care Provider: Antoinette Laird MD Diagnoses at Discharge Discharge Diagnosis (1) Acute on chronic kidney failure: Status: Acute Qualifiers: Acute renal failure type: unspecified Chronic kidney disease stage: unspecified stage Qualified Code(s): N17.9 - Acute kidney failure, unspecified; N18.9 - Chronic kidney disease, unspecified Reason for Visit Reason for Visit: Kidney Failure Hospital Course Hospital Course Pleasant 68-year-old gentleman with DM2, HLD, CAD, HFpEF, HTN, PVD, CKD, presented due to worsening kidney function, loose stools last 3 to 4 days, poor oral intake and decreased hydration. On presentation with rigors, fever 102, was found to be in acute kidney injury, abdomen pelvis CT with findings concerning for cholecystitis, small focus of omental infarct versus epiploic appendagitis of the left descending colon. Abdominal ultrasound further with cholelithiasis, thickened gallbladder with dilated CBD duct. MRCP showed acute calculus cholecystitis with no CBD stone or biliary dilation. He was started on antibiotics, IV fluid resuscitation, assessed by surgery and nephrology. With further consideration of options, the option of medical management was chosen with resuscitation, antibiotics, in case of failure cholecystostomy would be needed. With treatment his condition overall is improved. He is not having any further diarrhea. Stool Salmonella, Shigella, Campylobacter has been sent out and pending, please follow-up. Lactoferrin was negative. His fever resolved without recurrence. Abdominal pain resolved. He is tolerating oral intake of liquids. His renal function has shown gradual continued improvement as discussed with nephrology. He is asked to follow-up with nephrology as outpatient. He is asked to hold diuretics at current time. Hold lisinopril, decrease dose of empagliflozin. At this time also hold Humira and leflunomide. As per discussion with him and surgery he is to continue antibiotics to further complete 10 days of therapy, follow-up for reassessment. He is to visit with surgery in 2 weeks to further consider arrangements for interval cholecystectomy. He knows to return to hospital in case of any worsening or new concerning symptoms. Physical Exam Narrative: Sitting up at the side of the bed Const: COMMON NORMALS: patient oriented x3 and alert GENERAL APPEARANCE: cooperative NUTRITIONAL APPEARANCE: obese ORIENTATION/CONSCIOUSNESS: Yes awake HENMT: COMMON NORMALS: oropharynx normal Neck/C-Spine: COMMON NORMALS: no JVD Resp: COMMON NORMALS: normal respiratory effort and clear to auscultation bilaterally AUSCULTATION: clear to auscultation bilaterally Cardio: COMMON NORMALS: no JVD, regular rhythm, S1 normal heart sound present, S2 normal heart sound present and No murmurs present (Cardio) RHYTHM: regular rhythm HEART SOUNDS: S1 normal heart sound present and S2 normal heart sound present GI: COMMON NORMALS: Normal to inspection, nondistended, normoactive bowel sounds present, Soft to palpation and non-tender PALPATION: Yes Soft to palpation Extremity: COMMON NORMALS: no joint enlargement and no pedal edema Neuro: COMMON NORMALS: patient oriented x3 and moves all extremities SENSORIUM/ORIENTATION: Yes alert Skin: COMMON NORMALS: no rashes or lesions noted GENERAL SKIN EXAM: no rashes or lesions noted Discharge Data Studies Completed and Pending Completed Studies During Hospitalization Category Date Time Status CT abdomen pelvis wo con [id number] Routine Cat Scan 05/21/24 06:34 Completed XR chest 1V portable [id number] Stat Exams 05/20/24 20:33 Completed MR MRCP [id number] Stat MRI 05/22/24 15:56 Completed US abdomen limited [id number] Stat Ultrasound 05/21/24 08:31 Completed Pending at discharge Category Date Time Status Complete Blood Count w/Auto AM LABS Lab 05/25/24 04:00 Ordered Complete Blood Count w/Auto AM LABS Lab 05/26/24 04:00 Ordered Complete Blood Count w/Auto AM LABS Lab 05/27/24 04:00 Ordered Comprehensive Metabolic Panel AM LABS Lab 05/25/24 04:00 Ordered Comprehensive Metabolic Panel AM LABS Lab 05/26/24 04:00 Ordered Comprehensive Metabolic Panel AM LABS Lab 05/27/24 04:00 Ordered Magnesium AM LABS Lab 05/25/24 04:00 Ordered Magnesium AM LABS Lab 05/26/24 04:00 Ordered Magnesium AM LABS Lab 05/27/24 04:00 Ordered Phosphorus AM LABS Lab 05/25/24 04:00 Ordered Phosphorus AM LABS Lab 05/26/24 04:00 Ordered Phosphorus AM LABS Lab 05/27/24 04:00 Ordered Salmonella / Shigella / Campy Routine Lab 05/21/24 09:51 Received Radiology Impressions Chest X-Ray 05/20/24 20:33 IMPRESSION: No acute findings. Abdomen/Pelvis CT 05/21/24 06:34 IMPRESSION: 1. Findings are concerning for cholecystitis. Correlate clinically. Right upper quadrant ultrasound can be obtained for further assessment. 2. Small focus of omental infarct versus epiploic appendagitis of the left descending colon. COMMENTS: Consistent with the [employer]'s Incidental Findings Committee white paper (J Am Lexy Radiol 2018): Any incidental renal lesion less than 1 cm or classified as too small to characterize, or any incidental cystic renal lesion characterized as simple-appearing, is likely benign. No follow-up imaging is recommended for these lesions per consensus recommendations based on imaging criteria. Abdomen Ultrasound 05/21/24 08:31 IMPRESSION: Cholelithiasis. Thickened gallbladder wall and dilated common duct. Cholangiopancreatography MRI 05/22/24 15:56 IMPRESSION: Acute calculus cholecystitis with no CBD stone or biliary dilatation. COMMENTS: Consistent with the [employer]'s Incidental Findings Committee white paper (J Am Lexy Radiol 2018): Any incidental renal lesion less than 1 cm or classified as too small to characterize, or any incidental cystic renal lesion characterized as simple-appearing, is likely benign. No follow-up imaging is recommended for these lesions per consensus recommendations based on imaging criteria. Laboratory Results WBC 11.45 10^3/uL (3.29-11.43) H 05/24/24 13:17 RBC 4.26 10^6/uL (3.85-5.65) 05/24/24 13:17 Hgb 12.40 g/dL (11.27-16.99) 05/24/24 13:17 Hct 38.7 % (37-53) 05/24/24 13:17 MCV 90.8 fl (82-101) 05/24/24 13:17 MCH 29.1 pg (27-33) 05/24/24 13:17 MCHC 32.0 g/dL (30-55) 05/24/24 13:17 RDW 15.0 % (12.1-15.1) 05/24/24 13:17 Plt Count 199 10^3/cmm (157-399) 05/24/24 13:17 MPV 11.9 fL (7.4-10.4) H 05/24/24 13:17 Neut % (Auto) 84.9 % 05/24/24 13:17 Lymph % (Auto) 6.4 % 05/24/24 13:17 [place] % (Auto) 5.9 % 05/24/24 13:17 Eos % (Auto) 1.7 % 05/24/24 13:17 Baso % (Auto) 0.5 % 05/24/24 13:17 Neut # (Auto) 9.73 10^3/uL (1.8-7.7) H 05/24/24 13:17 Lymph # (Auto) 0.7 10^3/uL (0.8-4.8) L 05/24/24 13:17 [place] # (Auto) 0.7 10^3/uL (0.2-0.9) 05/24/24 13:17 Eos # (Auto) 0.2 10^3/uL (0.0-0.8) 05/24/24 13:17 Baso # (Auto) 0.1 10^3/uL (0.0-0.1) 05/24/24 13:17 Nucleated RBC % (auto) 0 % 05/24/24 13:17 Nucleated RBCs # 0.0 /100WBC 05/24/24 13:17 Sodium 140 mmol/L (136-145) 05/24/24 13:17 Potassium 4.7 mmol/L (3.5-5.1) 05/24/24 13:17 Chloride 105 mmol/L (98-107) 05/24/24 13:17 Carbon Dioxide 21 mmol/L (22-29) L 05/24/24 13:17 Anion Gap 18.7 (5-19) 05/24/24 13:17 BUN 39 mg/dL (8-23) H 05/24/24 13:17 Creatinine 2.3 mg/dL (0.7-1.2) H 05/24/24 13:17 GFR Calculation 28.3 mL/min (90-130) L 05/24/24 13:17 Glucose 186 mg/dL (65-115) H 05/24/24 13:17 POC Glucose 133 mg/dL (70-110) H 05/24/24 11:11 Calculated Osmolality 304 mOsm/kg (285-295) H 05/24/24 13:17 Lactic Acid 0.7 mmol/L (0.5-2.2) 05/20/24 20:28 Calcium 8.4 mg/dL (8.5-10.5) L 05/24/24 13:17 Phosphorus 2.3 mg/dL (2.5-4.5) L 05/21/24 03:44 Magnesium 2.0 mg/dL (1.7-2.3) 05/23/24 02:26 Total Bilirubin 0.3 mg/dL (0.15-1.2) 05/24/24 13:17 Direct Bilirubin 0.20 mg/dL (0.00-0.30) 05/22/24 04:51 AST 45 U/L (0-40) H 05/24/24 13:17 ALT 43 U/L (0-41) H 05/24/24 13:17 Alkaline Phosphatase 87 U/L (40-130) 05/24/24 13:17 Total Protein 5.7 g/dL (6.6-8.7) L 05/24/24 13:17 Albumin 2.3 g/dL (3.5-5.2) L 05/24/24 13:17 Globulin 3.4 g/dL (1.3-4.6) 05/24/24 13:17 Procalcitonin 5.51 ng/mL (0-0.5) H 05/20/24 20:28 Urine Color Yellow (Yellow) 05/21/24 00:54 Urine Appearance Cloudy (CLEAR) A 05/21/24 00:54 Urine pH 5.0 (5-7) 05/21/24 00:54 Ur Specific [place] 1.019 (1.005-1.030) 05/21/24 00:54 Urine Protein 1+ (Negative) A 05/21/24 00:54 Urine Glucose (UA) Trace (Normal) H 05/21/24 00:54 Urine Ketones Trace (Negative) 05/21/24 00:54 Urine Blood Negative (Negative) 05/21/24 00:54 Urine Nitrate Negative (Negative) 05/21/24 00:54 Urine Bilirubin Negative (Negative) 05/21/24 00:54 Urine Urobilinogen 1.0 mg/dL (Negative) 05/21/24 00:54 Ur Leukocyte Esterase Negative (Negative) 05/21/24 00:54 Urine RBC 0-2 /hpf (0-2) 05/21/24 00:54 Urine WBC 0-5 /hpf (0-5) 05/21/24 00:54 Ur Squamous Epith Cells 6-10 /hpf (0-5) 05/21/24 00:54 Amorphous Sediment Not Reportable 05/21/24 00:54 Urine Bacteria None seen /hpf (NONE) 05/21/24 00:54 Hyaline Casts 17.37 /lpf 05/21/24 00:54 Urine Mucus 2+ /hpf 05/21/24 00:54 Ur Random Microalbumin 1 ug/dL (0-20) 05/21/24 00:54 Ur Random Sodium 25 mmol/L 05/21/24 00:54 Urine Creatinine 240 mg/dL (39-259) 05/21/24 00:54 Urine Creatinine 241 mg/dL (39-259) 05/21/24 00:54 Microalb/Creat Ratio 4 mg/dL (0-20) 05/21/24 00:54 C. difficile (PCR) Negative (Negative) 05/21/24 09:51 Vitals Last Vital Signs Temp 97.9 F 05/24/24 11:39 Pulse 78 05/24/24 11:39 Resp 18 05/24/24 11:39 BP 134/77 05/24/24 11:39 Pulse Ox 96 05/24/24 11:39 O2 Del Method Room Air 05/24/24 11:39 Discharge Plan Discharge Patient Disposition: Home Condition: Stable Prescriptions: New metronidazole 500 mg tablet 500 mg PO Q8H 8 Days Qty: 24 0RF ciprofloxacin HCl 500 mg tablet 500 mg PO BID 8 Days Qty: 16 0RF Continued Galzin 25 mg (zinc) capsule 50 mg PO DAILY Rx Instructions: swallow whole; do not chew/break/dissolve/open cholecalciferol (vitamin D3) 400 unit capsule 400 unit PO DAILY acetaminophen 500 mg tablet 500 mg PO Q6H PRN (Reason: Pain) clopidogrel 75 mg tablet 75 mg PO DAILY testosterone cypionate [Depo-Testosterone] 200 mg/mL oil 400 mg IM .monthly ascorbic acid (vitamin C) 500 mg capsule 500 mg PO DAILY atorvastatin 80 mg tablet 40 mg PO DAILY aspirin [Adult Low Dose Aspirin] 81 mg tablet,delayed release (DR/EC) 81 mg PO DAILY bupropion HCl 150 mg tablet sustained-release 12 hr 150 mg PO QAM gabapentin 100 mg capsule See Rx Instructions .ROUTE .COMPLEX Rx Instructions: 200 mg orally ;2 in the am and 6 in the pm loratadine 10 mg tablet 10 mg PO DAILY methocarbamol 500 mg tablet 500 mg PO TID multivitamin Tablet 1 tab PO DAILY prazosin 2 mg capsule 2 mg PO .at bedtime levothyroxine 25 mcg tablet 50 mcg PO DAILY metoprolol tartrate 25 mg tablet 25 mg PO BID nitroglycerin [Nitrostat] 0.4 mg tablet, sublingual 0.4 mg SUBLINGUAL Q5M PRN (Reason: chest pain) Qty: 50 2RF (DME) Diabetic shoes with 3 sets of insoles See Rx Instructions .Route .MEDSUPPLY Qty: 1 0RF Rx Instructions: As directed (DME) night splint See Rx Instructions .Route .MEDSUPPLY Qty: 1 0RF Rx Instructions: As directed (DME) diabetic shoes with 3 inserts See Rx Instructions .Route .MEDSUPPLY Qty: 1 0RF Rx Instructions: As directed to the [facility]. (DME) diabetic shoes with 3 insterts See Rx Instructions .Route .MEDSUPPLY Qty: 1 0RF Rx Instructions: As directed by [facility] lidocaine 5 % Adhesive Patch,Medicated 1 patch TOPICAL DAILY Rx Instructions: leave on most painful area for up to 12 hrs ferrous gluconate 324 mg (37.5 mg iron) tablet 324 mg PO DAILY Changed empagliflozin 25 mg Tablet 12.5 mg PO DAILY Qty: 1 0RF Rx Instructions: Dose decreased only Held lisinopril 10 mg tablet 10 mg PO DAILY Hold Instructions: Resume on 06/07/24. Humira Pen 40 mg/0.8 mL pen injector kit 40 mg SUBCUT Q14D Qty: 2 5RF Hold Instructions: Resume on 07/26/24. leflunomide 20 mg tablet 20 mg PO DAILY Qty: 90 1RF Hold Instructions: Resume on 07/26/24. furosemide 20 mg Tablet 20 mg PO QAM Hold Instructions: Resume on 06/07/24. adalimumab-bwwd 40 mg/0.8 mL Auto-Injector 40 mg SUBCUT Q14D Hold Instructions: Resume on 07/26/24. Discontinued diclofenac sodium 1 % Gel 2 g TOPICAL QID Rx Instructions: apply to single elbow, wrist or hand; for hand includes palm/fingers/back of hand Discharge Orders: Discharge Order (Routine); Ordered 05/24/24 Ordered By: Roberto Snow Referrals: Nephrology, provider [Other] - 4-7 days (We have notified your physician's clinic of the need for a follow-up appointment to be scheduled. If you have not heard from them within the next 2 business days, please call them directly. ) Nilay Reaves MD [Physician] - 2 weeks (We have notified your physician's clinic of the need for a follow-up appointment to be scheduled. If you have not heard from them within the next 2 business days, please call them directly. ) Antoinette Laird MD [Primary Care Provider] - 4-7 days (We have notified your physician's clinic of the need for a follow-up appointment to be scheduled. If you have not heard from them within the next 2 business days, please call them directly. ) Discharge Diet: As Directed, Diabetic, Low Cholesterol and Low Fat Patient Instructions: Ciprofloxacin (By mouth), Metronidazole (By mouth), Cholecystitis (DC), Acute Kidney Injury (DC), Gastroenteritis (DC), Opioid Safety Activity Restrictions/Additional Instructions: Complete antibiotic course, seek medical attention in case of any worsening or new concerning symptoms, any fever, abdominal pain, vomiting, intolerance of food drink or medication by mouth, etc. In case of recurrence or worsening you may need transfer to higher level care facility. Please follow-up with surgery for reassessment and consideration of follow-up gallbladder removal. Due to kidney dysfunction, please discontinue diclofenac. Please hold lisinopril for next 2 weeks, unless found safe to resume sooner by your primary provider on recheck kidney function. Please also decrease empagliflozin dose as it can contribute to kidney dysfunction. Due to global inflammation, possible infection, please hold Humira and leflunomide until deemed safe to resume by her primary provider and/or surgery. Please follow-up with your primary provider to reassess kidney function after acute kidney injury on chronic kidney disease. Please follow-up with kidney specialist. Discharge Attestations Time Spent in Discharge Care*: greater than 30 min Quality Metrics Clinical Quality Measures [ No reported AMI, CVA or VTE this stay] Coding Level of Care Code 44515 Total time (in minutes) for Discharge: 45 Diagnoses Acute on chronic kidney failure N17.9; N18.9 Acute renal failure type: unspecified Chronic kidney disease stage: unspecified stage
[2024-05-24 15:27] VITALS: BP 134/77; PULSE 78; O2SAT 96
== END 2024-05-24 15:28 | disposition home or self-care (01) | DRG 683 ==
LOC: ER 23:49 → ER IP 23:54 → MEDSURG 05-21 05:53
PROVIDERS: Internal Medicine; Admitting Provider Internal Medicine; Emergency Provider Emergency Medicine; PCP Family Medicine; Visit Provider Internal Medicine
DX: N17.9 Acute kidney failure, unspecified (principal); I13.0 Hypertensive heart and chronic kidney disease with heart failure and stage 1 through stage 4 chronic kidney disease, or unspecified chronic kidney disease; I50.30 Unspecified diastolic (congestive) heart failure; K80.00 Calculus of gallbladder with acute cholecystitis without obstruction; Z68.43 Body mass index [BMI] 50.0-59.9, adult; E11.22 Type 2 diabetes mellitus with diabetic chronic kidney disease; N18.30 Chronic kidney disease, stage 3 unspecified; E11.51 Type 2 diabetes mellitus with diabetic peripheral angiopathy without gangrene; E78.5 Hyperlipidemia, unspecified; I25.10 Atherosclerotic heart disease of native coronary artery without angina pectoris; R50.9 Fever, unspecified; E66.01 Morbid (severe) obesity due to excess calories; M19.90 Unspecified osteoarthritis, unspecified site; R19.7 Diarrhea, unspecified; G47.33 Obstructive sleep apnea (adult) (pediatric); I25.5 Ischemic cardiomyopathy; I25.2 Old myocardial infarction; Z85.828 Personal history of other malignant neoplasm of skin; Z79.82 Long term (current) use of aspirin; Z79.4 Long term (current) use of insulin
CPT/HCPCS: 36415; 36416; 71045; 74176; 74181; 76705; 80048; 80053; 80076; 81001; 82044; 82570; 82962; 83605; 83630; 83735; 84100; 84145; 84300; 85025; 87045; 87427; 87449; 87493; 94660; 96360; 96372; 99285; J0744; J1815; J3490; J7030; J7120

== ENCOUNTER → 2024-06-29 09:20 | Outpatient (BNVA) | payer OTHER, SELFPAY | PROVIDERS: PCP Family Medicine; Visit Provider Surgery | DX: K81.9 Cholecystitis, unspecified (principal); E11.8 Type 2 diabetes mellitus with unspecified complications; I73.9 Peripheral vascular disease, unspecified; L60.3 Nail dystrophy; M21.621 Bunionette of right foot; M21.622 Bunionette of left foot | CPT/HCPCS: 11056; 11721; 99214 ==

== ENCOUNTER 2024-07-02 10:45 | Outpatient (CLI) | payer OTHER, SELFPAY ==
[2024-07-02 11:01] LABS: Basophils # 0.1 10^3/uL (0.0-0.1); Basophils % 1.3 %; Eosinophils # 0.2 10^3/uL (0.0-0.8); Eosinophils % 3.1 %; Hematocrit 50.7 % (37-53); Lymphocytes # 2.2 10^3/uL (0.8-4.8); Lymphocytes % 30.5 %; Mean Corpuscular HGB Conc 31.4 g/dL (30-55); Mean Corpuscular Hemoglobin 29.2 pg (27-33); Mean Corpuscular Volume 93.2 fl (82-101); Mean Platelet Volume 11.4 fL (7.4-10.4); Monocytes # 0.5 10^3/uL (0.2-0.9); Monocytes % 7.2 %; Neutrophils # 4.11 10^3/uL (1.8-7.7); Neutrophils % 57.6 %; Nucleated Red Blood Cells % 0 %; Platelet Count 170 10^3/cmm (157-399); Red Blood Count 5.44 10^6/uL (3.85-5.65); Red Cell Distribution Width 16.3 % (12.1-15.1); White Blood Count 7.12 10^3/uL (3.29-11.43)
[2024-07-02 11:20] LABS: Alanine Aminotransferase 21 U/L (0-41); Alkaline Phosphatase 109 U/L (40-130); Anion Gap 14.4 (5-19); Aspartate Amino Transferase 24 U/L (0-40); Blood Urea Nitrogen 22 mg/dL (8-23); Calcium 9.8 mg/dL (8.5-10.5); Carbon Dioxide 29 mmol/L (22-29); Chloride 103 mmol/L (98-107); Globulin 3.2 g/dL (1.3-4.6); Glomerular Filtration Rate 33.3 mL/min (90-130); Glucose 119 mg/dL (65-115); Osmolality Calculated 296 mOsm/kg (285-295); Potassium 5.4 mmol/L (3.5-5.1); Sodium 141 mmol/L (136-145); Total Bilirubin 0.4 mg/dL (0.15-1.2); Total Protein 7.2 g/dL (6.6-8.7)
== END 2024-07-02 10:46 | disposition home or self-care (01) ==
LOC: LAB 10:46
PROVIDERS: PCP Family Medicine; Visit Provider Surgery
DX: Z51.81 Encounter for therapeutic drug level monitoring (principal); K81.9 Cholecystitis, unspecified; Z79.1 Long term (current) use of non-steroidal anti-inflammatories (NSAID)
CPT/HCPCS: 36415; 80048; 80076; 85025

== ENCOUNTER → 2024-07-06 08:33 | Outpatient (BNVA) | payer OTHER, SELFPAY | PROVIDERS: PCP Family Medicine; Visit Provider Family Medicine | DX: Z01.818 Encounter for other preprocedural examination (principal) | CPT/HCPCS: 93005 ==

== ENCOUNTER → 2024-07-07 10:28 | Outpatient (BNVA) | payer OTHER, SELFPAY | PROVIDERS: PCP Family Medicine; Visit Provider Internal Medicine Rheumatology | DX: Z79.899 Other long term (current) drug therapy (principal); N18.4 Chronic kidney disease, stage 4 (severe); E13.9 Other specified diabetes mellitus without complications; M25.50 Pain in unspecified joint; M19.90 Unspecified osteoarthritis, unspecified site | CPT/HCPCS: 99214 ==

== ENCOUNTER 2024-07-12 15:12 | Inpatient (IN) | payer OTHER, MEDICARE, SELFPAY ==
[2024-07-12] VITALS (19 sets, daily range): BP systolic 116–148; BP diastolic 37–83; PULSE 82–105; RESP 15–24; TEMP 36.3–36.7; O2SAT 91–97; BMI 41.4
[2024-07-12 07:49] LABS: Glucose Point of Care 131 mg/dL (70-110)
[2024-07-12] MEDS: sodium chloride 0.9% 1,000 ML 30 ML IV ×2 (08:05→15:43)
--- NOTE | 2024-07-12 08:09 | P.ANESASSM_ITS ---
Pre-Anesthetic Assessment Height/Weight: Height 1.68 m Weight 116.573 kg Temp Pulse Resp BP Pulse Ox O2 Del Method 97.3 F L 87 16 127/71 95 Room Air 07/12/24 07:34 07/12/24 07:34 07/12/24 07:34 07/12/24 07:34 07/12/24 07:34 07/12/24 07:34 Operation Date: 07/12/24 09:10 Proposed Procedures p Laparoscopic Cholecystectomy 86309, K81.9(Not Applicable) - Nilay Reaves MD Familial anesthetic complications: None Was Beta Darci taken within 24 hours: Yes Was Clonidine taken within 24 hours: N/A Last intake: Intake Last Liquid Date 07/11/24 Last Liquid Time 22:30 Last Solid Date 06/28/24 Last Solid Time 00:00 Social No alcohol and No tobacco Exam alert, oriented x 3, clear to auscultation bilaterally and regular rate & rhythm Airway Mallampati: Class IV Dentition: other (2 recently pulled) Comments: Comments: large neck Pulmonary Sleep Apnea CV/HEM Coronary Artery Disease (stents > 1year), Hypertension and Peripheral Vascular Disease Ef 58% w/ mild MVR in 2021 echo Patient states able to achieve > 4 METs Chronic Renal Insufficiency Metabolic Diabetes Mellitus, Hyperlipidemia and Morbid Obesity Anesthetic Plan ASA status: 3 Anesthesia: General Risk of > 500 ml blood loss (7ml/kg in children): No Medications/Allergies Home Medications Medication Instructions Recorded Confirmed Last Taken Type acetaminophen 500 mg tablet 500 mg PO Q6H PRN Pain 08/11/19 07/12/24 Unknown History ascorbic acid (vitamin C) 500 mg 500 mg PO DAILY 08/11/19 07/12/24 Unknown History capsule aspirin 81 mg tablet,delayed 81 mg PO DAILY 08/11/19 07/12/24 Unknown History release (Adult Low Dose Aspirin) atorvastatin 80 mg tablet 40 mg PO DAILY 08/11/19 07/12/24 07/11/24 History bupropion HCl 150 mg tablet,12 hr 150 mg PO QAM 08/11/19 07/12/24 07/11/24 History sustained-release cholecalciferol (vitamin D3) 10 400 unit PO DAILY 08/11/19 07/12/24 07/11/24 History mcg (400 unit) capsule clopidogrel 75 mg tablet 75 mg PO DAILY 08/11/19 07/12/24 07/06/24 History gabapentin 100 mg capsule 100 mg PO DAILY 08/11/19 07/12/24 07/11/24 History lisinopril 10 mg tablet 10 mg PO DAILY 08/11/19 07/12/24 Unknown History loratadine 10 mg tablet 10 mg PO DAILY 08/11/19 07/12/24 07/11/24 History methocarbamol 500 mg tablet 500 mg PO TID 08/11/19 07/12/24 07/11/24 History multivitamin 1 tab PO DAILY 08/11/19 07/12/24 07/11/24 History prazosin 2 mg capsule 2 mg PO .at bedtime 08/11/19 07/12/24 07/11/24 History testosterone cypionate 200 mg/mL 400 mg IM .monthly 08/11/19 07/12/24 06/23/24 History intramuscular oil (Depo-Testosterone) zinc acetate 25 mg (zinc) capsule 50 mg PO DAILY 06/22/20 07/12/24 07/11/24 History (Galzin) levothyroxine 25 mcg tablet 50 mcg PO DAILY 08/08/20 07/12/24 07/11/24 History nitroglycerin 0.4 mg sublingual 0.4 mg sublingual Q5M PRN chest 08/08/20 07/12/24 Unknown Rx tablet (Nitrostat) pain #50 tabs metoprolol tartrate 25 mg tablet 25 mg PO BID 02/08/21 07/12/24 07/12/24 History Diabetic shoes with 3 sets of #1 ea 03/18/23 07/12/24 Unknown Rx insoles diabetic shoes with 3 inserts #1 ea 06/25/23 07/12/24 Unknown Rx night splint #1 ea 06/25/23 07/12/24 Unknown Rx diabetic shoes with 3 insterts #1 ea 03/23/24 07/12/24 Unknown Rx adalimumab-bwwd 40 mg/0.8 mL 40 mg SUBCUT Q14D 05/21/24 07/12/24 Unknown History subcutaneous auto-injector ferrous gluconate 324 mg (37.5 mg 324 mg PO DAILY 05/21/24 07/12/24 07/11/24 History iron) tablet furosemide 20 mg tablet 20 mg PO QAM 05/21/24 07/12/2425 History lidocaine 5 % topical patch 1 patch topical DAILY 05/21/24 07/12/24 Unknown History empagliflozin 25 mg tablet 12.5 mg (1/2 x 25 mg) PO DAILY #1 05/24/24 07/12/24 07/11/24 Rx tab milk thistle 150 mg capsule 150 mg PO BID 06/29/24 07/12/24 07/11/24 History adalimumab 40 mg/0.8 mL 40 mg (0.8 mL) SUBCUT Q14D #2 ea 07/07/24 07/12/24 Unknown Rx subcutaneous pen kit (Humira Pen) leflunomide 20 mg tablet 20 mg PO DAILY #90 tabs 07/07/24 07/12/24 07/11/24 Rx Allergies Allergy/AdvReac Type Severity Reaction Status Date / Time No Known Allergies Allergy Verified 07/08/24 08:36 Current Medications Generic Name Dose Route Start Last Admin Trade Name Freq PRN Reason Stop Dose Admin Sodium Chloride 1,000 mls @ 30 mls/hr 07/12/24 07:30 07/12/24 08:05 Sodium Chloride 0.9% IV 07/13/24 07:29 30 mls/hr .Q24H MARIELENA Administration PFSH Anesthesia Medical History Polyarthralgia History of nonmelanoma skin cancer High risk medication use Inflammatory arthritis 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 Morbid obesity due to excess calories Atherosclerosis of coronary artery of [place] heart without angina pectoris Diabetes 1.5, managed as type 2 Dyslipidemia (high LDL; low HDL) Hypertension TRU (obstructive sleep apnea) Myocardial infarction CHF (congestive heart failure) Surgical History Hx of cataract extraction Hx of circumcision History of heart artery stent H/O wisdom tooth extraction Family History Father CAD (coronary artery disease) Grandfather Cancer Mother Chronic kidney disease (CKD) Stroke Sister Diabetes Denies family history of Clotting disorder Dementia Suicide Anesthesia complication Bleeding disorder Lung disease Social History Smoking and tobacco/nicotine status: former use of tobacco/nicotine Alcohol intake: current Alcohol intake frequency: holidays/special occasions only Substance/Drug Use: never Data Anesthesia 07/12/24 07:45 BMP 07/12/24 07:45 Sodium Cancelled Potassium Cancelled Chloride Cancelled Carbon Dioxide Cancelled BUN Cancelled Creatinine Cancelled Glucose Cancelled Calcium Cancelled Cardiac Studies: 2 Echocardiogram 07/23/21
[2024-07-12 08:34] LABS: Anion Gap 15.5 (5-19); Blood Urea Nitrogen 33 mg/dL (8-23); Calcium 7.7 mg/dL (8.5-10.5); Carbon Dioxide 22 mmol/L (22-29); Chloride 105 mmol/L (98-107); Creatinine Clr Calc Pharmacy 46.5166; Glomerular Filtration Rate 37.6 mL/min (90-130); Glucose 126 mg/dL (65-115); Osmolality Calculated 295 mOsm/kg (285-295); Potassium 4.5 mmol/L (3.5-5.1); Sodium 138 mmol/L (136-145)
--- NOTE | 2024-07-12 09:11 | W.PM.OPSUD ---
Surgery/Procedure H&P Update DATE OF PROCEDURE: July 12, 2024 DATE H&P PERFORMED: 06/29/24 H&P UPDATE INFORMATION: I have reviewed H&P completed within last 30 days, I have examined patient prior to procedure, No changes to prior documentation and H&P is in [facility] [place] [facility] EMR on date indicated PLANNED PROCEDURE: Operation Date: 07/12/24 09:10 Proposed Procedures p Laparoscopic Cholecystectomy 01512, K81.9(Not Applicable) - Nilay Reaves MD
[2024-07-12] MEDS: ceFAZolin 2,000 mg SDV 2000 MG IVP ×2 (09:20→13:20)
--- NOTE | 2024-07-12 12:29 | XRR_ITS ---
PROCEDURE INFORMATION: Exam: XR Chest Exam date and time: 07/12/2024 1:40 PM Age: 68 years old Clinical indication: Device placement; Ng tube; Additional info: Ng tube placement TECHNIQUE: Imaging protocol: Radiologic exam of the chest. Views: 1 view. COMPARISON: CR XR chest 1V portable [id number] 05/20/2024 8:42 PM FINDINGS: Tubes, catheters and devices: There has been interval placement of a nasogastric tube with the tip projecting over the expected location of the mid stomach. Lungs: There is pulmonary hypoinflation with mild compressive changes throughout the lungs. No dense focal consolidation is seen. A component of mild pulmonary vascular congestion can not be excluded. No marisela pulmonary edema is seen. Pleural spaces: No significant pleural effusion. No pneumothorax. Heart/Mediastinum: There is mild stable cardiomegaly. Bones/joints: There are degenerative changes throughout the visualized spine. Other findings: None. XR/XR chest 1V portable [id number] IMPRESSION: 1. Interval placement of nasogastric tube with the tip projecting over the mid stomach. 2. Pulmonary hypoinflation with compressive changes throughout the lungs. Mild pulmonary vascular congestion can not be excluded. No marisela pulmonary edema is seen. 3. Mild stable cardiomegaly.
--- NOTE | 2024-07-12 12:40 | PC.NURSE ---
family updated at 1248
[2024-07-12] MEDS: BUPivacaine 0.25% INJ 10 mL INJECTION (13:00)
[2024-07-12] MEDS: lidocaine-epi 1% 20 mL INJ INJECTION (13:00)
--- NOTE | 2024-07-12 13:22 | W.PM.BPON ---
Date of Procedure: 07/12/24 Surgeon: Nilay Reaves MD, Evan Faulkner DO, Baggage Smasher(s): [facility] OR Staff Procedure(s) performed: Laparoscopic cholecystectomy, laparoscopic repair of duodenal tear Findings of the procedure(s): Severe inflammation of the gallbladder, the omentum to the adjacent structures the gallbladder were completely stuck and there was thick inflammatory tissue surrounding the gallbladder, there was a small abscess cavity cephalad to the gallbladder contained by and omentum. The duodenum was completely pulled out and adhered to the gallbladder, a partial duodenal injury was noticed during dissection, the injury did not involve the mucosa, was repaired. Estimated blood loss: 200 cc Specimen(s) removed: Gallbladder and contents Post-operative diagnosis: Acute on chronic cholecystitis, partial thickness duodenal wall injury
--- NOTE | 2024-07-12 13:46 | P.MISC_ITS ---
Miscellaneous Note Purpose of Documentation: Dr. Reaves asked for my assistance during cholecystectomy on this 68-year- old gentleman with a history of ischemic heart disease, diastolic heart failure, chronic kidney disease, diabetes mellitus and other past medical history per chart. Patient was initially treated for his acute calculous cholecystitis with antibiotics and plans for an interval cholecystectomy 6 weeks later, which is being performed today. Note: When he arrived to the operating room, the patient was already intubated and laparoscopic ports were already placed. There was a very thick inflammatory rind and inflamed omentum over the gallbladder. This was taken down meticulously with blunt dissection and electrocautery. During the dissection, the duodenum was found to be adhered to the inferior portion of the gallbladder. The duodenum was also covered in a thick inflammatory rind. A partial thickness injury was identified along the edge of the duodenum. This was not a full-thickness injury. Out of an abundance of caution, the serosa was repaired with interrupted 3-0 Vicryl sutures laparoscopically. 4 simple interrupted sutures were placed. We then went back to perform the cholecystectomy. The inflammatory rind was completely pulled down and then the triangle of [place] was clearly identified with the cystic duct and cystic artery. The cystic duct was triply clipped and ligated. The cystic artery was doubly clipped and ligated. The gallbladder was then taken off of the liver with electrocautery. The gallbladder was partially intrahepatic. The gallbladder was removed via the epigastric incision, which had to be significantly extended in order to accommodate is a very large gallbladder containing stones. There was venous bleeding from the liver bed which was controlled with electrocautery and a piece of Surgicel. Tisseel was mixed to be placed over the duodenal repair. The critical portions of the surgery were complete and I scrubbed out for Dr. Reaves to complete his surgery. We also plan to place an intra-abdominal drain and admit the patient for observation.
[2024-07-12 13:52] LABS: Glucose Point of Care 193 mg/dL (70-110)
--- NOTE | 2024-07-12 14:33 | P.HP_ITS ---
Providers/Chief Complaint 2 Primary Care Provider: Antionette Laird MD Chief Complaint: K81.9 History of Present Illness Bayron Omer is a 68 year old male with a past medical history of CAD on aspirin and Plavix, type 2 diabetes mellitus, diastolic heart failure, peripheral vascular disease, CKD, inflammatory arthritis, morbid obesity, obstructive sleep apnea who presents [facility] for laparoscopic cholecystectomy, laparoscopic repair of duodenal tear, patient was seen postoperatively, NG tube in place, alert oriented x 3, following all commands, is at bedside, he reports that he had a stent placed in 2006 has been on aspirin Plavix since then, he stopped these medications on Friday. Does have type 2 diabetes, no history of COPD, does have diastolic heart failure. Yesterday patient was working on his tractor, when he hit a branch just above the right brow, no loss of consciousness, no significant headache, no blurry vision. Discussed patient and the risk and benefits of holding aspirin and Plavix, he voiced understanding, all question answered, agreed to proceed Medications/Allergies Home Medications Medication Instructions Recorded Confirmed Last Taken Type acetaminophen 500 mg tablet 500 mg PO Q6H PRN Pain 08/11/19 07/12/24 Unknown History ascorbic acid (vitamin C) 500 mg 500 mg PO DAILY 08/11/19 07/12/24 Unknown History capsule aspirin 81 mg tablet,delayed 81 mg PO DAILY 08/11/19 07/12/24 Unknown History release (Adult Low Dose Aspirin) atorvastatin 80 mg tablet 40 mg PO DAILY 08/11/19 07/12/24 07/11/24 History bupropion HCl 150 mg tablet,12 hr 150 mg PO QAM 08/11/19 07/12/24 07/11/24 History sustained-release cholecalciferol (vitamin D3) 10 400 unit PO DAILY 08/11/19 07/12/24 07/11/24 History mcg (400 unit) capsule clopidogrel 75 mg tablet 75 mg PO DAILY 08/11/19 07/12/24 07/06/24 History gabapentin 100 mg capsule 100 mg PO DAILY 08/11/19 07/12/24 07/11/24 History lisinopril 10 mg tablet 10 mg PO DAILY 08/11/19 07/12/24 Unknown History loratadine 10 mg tablet 10 mg PO DAILY 08/11/19 07/12/24 07/11/24 History methocarbamol 500 mg tablet 500 mg PO TID 08/11/19 07/12/24 07/11/24 History multivitamin 1 tab PO DAILY 08/11/19 07/12/24 07/11/24 History prazosin 2 mg capsule 2 mg PO .at bedtime 08/11/19 07/12/24 07/11/24 History testosterone cypionate 200 mg/mL 400 mg IM .monthly 08/11/19 07/12/24 06/23/24 History intramuscular oil (Depo-Testosterone) zinc acetate 25 mg (zinc) capsule 50 mg PO DAILY 06/22/20 07/12/24 07/11/24 History (Galzin) levothyroxine 25 mcg tablet 50 mcg PO DAILY 08/08/20 07/12/24 07/11/24 History nitroglycerin 0.4 mg sublingual 0.4 mg sublingual Q5M PRN chest 08/08/20 07/12/24 Unknown Rx tablet (Nitrostat) pain #50 tabs metoprolol tartrate 25 mg tablet 25 mg PO BID 02/08/21 07/12/24 07/12/24 History Diabetic shoes with 3 sets of #1 ea 03/18/23 07/12/24 Unknown Rx insoles diabetic shoes with 3 inserts #1 ea 06/25/23 07/12/24 Unknown Rx night splint #1 ea 06/25/23 07/12/24 Unknown Rx diabetic shoes with 3 insterts #1 ea 03/23/24 07/12/24 Unknown Rx adalimumab-bwwd 40 mg/0.8 mL 40 mg SUBCUT Q14D 05/21/24 07/12/24 Unknown History subcutaneous auto-injector ferrous gluconate 324 mg (37.5 mg 324 mg PO DAILY 05/21/24 07/12/24 07/11/24 History iron) tablet furosemide 20 mg tablet 20 mg PO QAM 05/21/24 07/12/24 07/11/24 History lidocaine 5 % topical patch 1 patch topical DAILY 05/21/24 07/12/24 Unknown History empagliflozin 25 mg tablet 12.5 mg (1/2 x 25 mg) PO DAILY #1 05/24/24 07/12/24 07/11/24 Rx tab milk thistle 150 mg capsule 150 mg PO BID 06/29/24 07/12/24 07/11/24 History adalimumab 40 mg/0.8 mL 40 mg (0.8 mL) SUBCUT Q14D #2 ea 07/07/24 07/12/24 Unknown Rx subcutaneous pen kit (Humira Pen) leflunomide 20 mg tablet 20 mg PO DAILY #90 tabs 07/07/24 07/12/24 07/11/24 Rx Allergies Allergy/AdvReac Type Severity Reaction Status Date / Time No Known Allergies Allergy Verified 07/08/24 08:36 PFSH Acute 2 PFSH: Medical History Polyarthralgia History of nonmelanoma skin cancer High risk medication use Inflammatory arthritis 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 Morbid obesity due to excess calories Atherosclerosis of coronary artery of [place] heart without angina pectoris Diabetes 1.5, managed as type 2 Dyslipidemia (high LDL; low HDL) Hypertension TRU (obstructive sleep apnea) Myocardial infarction CHF (congestive heart failure) Surgical History Hx of cataract extraction Hx of circumcision History of heart artery stent H/O wisdom tooth extraction Family History Father CAD (coronary artery disease) Grandfather Cancer Mother Chronic kidney disease (CKD) Stroke Sister Diabetes Denies family history of Clotting disorder Dementia Suicide Anesthesia complication Bleeding disorder Lung disease Social History Smoking and tobacco/nicotine status: former use of tobacco/nicotine Alcohol intake: current Alcohol intake frequency: holidays/special occasions only Substance/Drug Use: never Vitals/I&O/Wt Last Vital Signs Temp 97.6 F 07/12/24 14:14 Pulse 85 07/12/24 14:28 Resp 18 07/12/24 14:28 BP 125/61 07/12/24 14:28 Pulse Ox 91 07/12/24 14:28 O2 Del Method Room Air 07/12/24 14:28 O2 Flow Rate 8 07/12/24 13:44 07/11/24 07/12/24 07/12/24 22:59 06:59 14:59 Intake Total 1550 / 1550 Output Total 200 / 200 Balance 1350 / 1350 Weight last 48 hrs Weight 116.573 kg Data 07/12/24 08:11 Coding Level of Care Code Acute Code for Chg Fwd
--- NOTE | 2024-07-12 14:45 | PM.CONSULT ---
Providers/Reason For Consult Consulting Physician/Specialty*: General surgery Reason for Consult*: Hypertension, type 2 diabetes, obstructive sleep apnea, CHF, CKD Attending Physician: Nilay Reaves MD Primary Care Provider: Antoinette Laird MD History of Present Illness History of Present Illness Bayron Omer is a 68 year old male with a past medical history of diastolic CHF, CAD, CKD, septic sleep apnea, obesity, type 2 diabetes mellitus who presents to [facility] for a laparoscopic cholecystectomy and laparoscopic repair of duodenal tear. Patient was seen postoperatively NG tube in place he is alert orient x 3, following all commands, is at bedside. Patient tells me that he has not taken his aspirin Plavix since Friday, his last stent was placed in . Denies any recent chest pain, no palpitations, no shortness of breath. Yesterday he was on his tractor trailer, helping move something, when a branch hit his left brow, no loss of consciousness, no headache, blurry vision, no significant pain. Review of Systems Const: Denies: fever(s) Card: Denies: chest pain Resp: Denies: dyspnea GI: Reports: abdominal pain : Denies: flank pain Neuro: Denies: headache(s) Medications/Allergies Home Medications Medication Instructions Recorded Confirmed Last Taken Type acetaminophen 500 mg tablet 500 mg PO Q6H PRN Pain 08/11/19 07/12/24 Unknown History ascorbic acid (vitamin C) 500 mg 500 mg PO DAILY 08/11/19 07/12/24 Unknown History capsule aspirin 81 mg tablet,delayed 81 mg PO DAILY 08/11/19 07/12/24 Unknown History release (Adult Low Dose Aspirin) atorvastatin 80 mg tablet 40 mg PO DAILY 08/11/19 07/12/24 07/11/24 History bupropion HCl 150 mg tablet,12 hr 150 mg PO QAM 08/11/19 07/12/24 07/11/24 History sustained-release cholecalciferol (vitamin D3) 10 400 unit PO DAILY 08/11/19 07/12/24 07/11/24 History mcg (400 unit) capsule clopidogrel 75 mg tablet 75 mg PO DAILY 08/11/19 07/12/24 07/06/24 History gabapentin 100 mg capsule 100 mg PO DAILY 08/11/19 07/12/24 07/11/24 History lisinopril 10 mg tablet 10 mg PO DAILY 08/11/19 07/12/24 Unknown History loratadine 10 mg tablet 10 mg PO DAILY 08/11/19 07/12/24 07/11/24 History methocarbamol 500 mg tablet 500 mg PO TID 08/11/19 07/12/24 07/11/24 History multivitamin 1 tab PO DAILY 08/11/19 07/12/24 07/11/24 History prazosin 2 mg capsule 2 mg PO .at bedtime 08/11/19 07/12/24 07/11/24 History testosterone cypionate 200 mg/mL 400 mg IM .monthly 08/11/19 07/12/24 06/23/24 History intramuscular oil (Depo-Testosterone) zinc acetate 25 mg (zinc) capsule 50 mg PO DAILY 06/22/20 07/12/24 07/11/24 History (Galzin) levothyroxine 25 mcg tablet 50 mcg PO DAILY 08/08/20 07/12/24 07/11/24 History nitroglycerin 0.4 mg sublingual 0.4 mg sublingual Q5M PRN chest 08/08/20 07/12/24 Unknown Rx tablet (Nitrostat) pain #50 tabs metoprolol tartrate 25 mg tablet 25 mg PO BID 02/08/21 07/12/24 07/12/24 History Diabetic shoes with 3 sets of #1 ea 03/18/23 07/12/24 Unknown Rx insoles diabetic shoes with 3 inserts #1 ea 06/25/23 07/12/24 Unknown Rx night splint #1 ea 06/25/23 07/12/24 Unknown Rx diabetic shoes with 3 insterts #1 ea 03/23/24 07/12/24 Unknown Rx adalimumab-bwwd 40 mg/0.8 mL 40 mg SUBCUT Q14D 05/21/24 07/12/24 Unknown History subcutaneous auto-injector ferrous gluconate 324 mg (37.5 mg 324 mg PO DAILY 05/21/24 07/12/24 07/11/24 History iron) tablet furosemide 20 mg tablet 20 mg PO QAM 05/21/24 07/12/24 07/11/24 History lidocaine 5 % topical patch 1 patch topical DAILY 05/21/24 07/12/24 Unknown History empagliflozin 25 mg tablet 12.5 mg (1/2 x 25 mg) PO DAILY #1 05/24/24 07/12/24 07/11/24 Rx tab milk thistle 150 mg capsule 150 mg PO BID 06/29/24 07/12/24 07/11/24 History adalimumab 40 mg/0.8 mL 40 mg (0.8 mL) SUBCUT Q14D #2 ea 07/07/24 07/12/24 Unknown Rx subcutaneous pen kit (Humira Pen) leflunomide 20 mg tablet 20 mg PO DAILY #90 tabs 07/07/24 07/12/24 07/11/24 Rx Allergies Allergy/AdvReac Type Severity Reaction Status Date / Time No Known Allergies Allergy Verified 07/08/24 08:36 Current Medications Generic Name Dose Route Start Last Admin Trade Name Freq PRN Reason Stop Dose Admin Sodium Chloride 1,000 mls @ 30 mls/hr 07/12/24 07:30 07/12/24 10:35 Sodium Chloride 0.9% IV 07/13/24 07:29 Infused .Q24H MARIELENA Infusion PFSH Acute PFSH: Medical History Polyarthralgia History of nonmelanoma skin cancer High risk medication use Inflammatory arthritis 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 Morbid obesity due to excess calories Atherosclerosis of coronary artery of [place] heart without angina pectoris Diabetes 1.5, managed as type 2 Dyslipidemia (high LDL; low HDL) Hypertension TRU (obstructive sleep apnea) Myocardial infarction CHF (congestive heart failure) Surgical History Hx of cataract extraction Hx of circumcision History of heart artery stent H/O wisdom tooth extraction Family History Father CAD (coronary artery disease) Grandfather Cancer Mother Chronic kidney disease (CKD) Stroke Sister Diabetes Denies family history of Clotting disorder Dementia Suicide Anesthesia complication Bleeding disorder Lung disease Social History Smoking and tobacco/nicotine status: former use of tobacco/nicotine Alcohol intake: current Alcohol intake frequency: holidays/special occasions only Substance/Drug Use: never Vitals/I&O/Wt Last Vital Signs Temp 97.6 F 07/12/24 14:14 Pulse 82 07/12/24 14:38 Resp 16 07/12/24 14:38 BP 123/58 07/12/24 14:38 Pulse Ox 93 07/12/24 14:38 O2 Del Method Room Air 07/12/24 14:38 O2 Flow Rate 8 07/12/24 13:44 07/11/24 07/12/24 07/12/24 22:59 06:59 14:59 Intake Total 1550 / 1550 Output Total 200 / 200 Balance 1350 / 1350 Weight last 48 hrs Weight 116.573 kg Physical Exam Const: COMMON NORMALS: no acute distress and patient oriented x3 Eye: OTHER: Left brow, superficial bruising Resp: COMMON NORMALS: normal respiratory effort, No retractions, No use of accessory muscles and clear to auscultation bilaterally AUSCULTATION: clear to auscultation bilaterally Cardio: COMMON NORMALS: regular rate, regular rhythm, S1 normal heart sound present and S2 normal heart sound present RATE: regular rate RHYTHM: regular rhythm HEART SOUNDS: S1 normal heart sound present and S2 normal heart sound present GI: OTHER: Abdomen is soft, slightly distended, scattered bowel sounds, no guarding, no rebound, no rigidity, JOSE CARLOS drain in place, surgical site looks clean dry Extremity: COMMON NORMALS: no pedal edema Neuro: COMMON NORMALS: patient oriented x3, CN's II-XII intact bilaterally and moves all extremities Psych: COMMON NORMALS: mental status grossly normal Data 07/12/24 08:11 A&P Assessment and plan (1) 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: Qualifiers: Heart failure chronicity: chronic Qualified Code(s): I50.32 - Chronic diastolic (congestive) heart failure; I25.10 - Atherosclerotic heart disease of [place] coronary artery without angina pectoris (2) Diabetes 1.5, managed as type 2: (3) Dyslipidemia (high LDL; low HDL): (4) S/P cholecystectomy: (5) Chronic kidney disease (CKD) stage G4/A1, severely decreased glomerular filtration rate (GFR) between 15-29 mL/min/1.73 square meter and albuminuria creatinine ratio less than 30 mg/g: (6) Ischemic cardiomyopathy: (7) CAD (coronary artery disease): Plan Status post laparoscopic cholecystectomy, laparoscopic repair of duodenal tear, ESBL 200 cc Plan -General Surgery primary -N.p.o. -Recheck CBC -NG tube in place -Morphine for pain control -Normal saline at 75 cc an hour -Zosyn for antibiotic coverage -Zofran for nausea -Serial abdominal exams -SCDs for DVT prophylaxis, Lovenox currently on hold -Full code CKD, IV fluids as above, monitor kidney function CAD -Discussed with patient risk and benefits of holding aspirin and Plavix, he voiced understanding, all questions answered, shared decision making hold for now Diastolic CHF -Follow-up for fluid overload Hypertension, monitor Obstructive sleep apnea, will try CPAP Type 2 diabetes mellitus, low-dose sliding scale, check A1c Consult Attestations Medical Necessity Statement: Patient requires hospitalization, for cholecystectomy status post duodenal tear, medical management Diagnoses Chronic diastolic heart failure secondary to coronary artery disease I50.32; I25.10 Heart failure chronicity: chronic Diabetes 1.5, managed as type 2 E13.9 Dyslipidemia (high LDL; low HDL) E78.5 S/P cholecystectomy Z90.49 Chronic kidney disease (CKD) stage G4/A1, severely decreased glomerular filtration rate (GFR) between 15-29 mL/min/1.73 square meter and albuminuria creatinine ratio less than 30 mg/g N18.4 Ischemic cardiomyopathy I25.5 CAD (coronary artery disease) I25.10
[2024-07-12] MEDS: piperacillin-tazobactam 3.375 GM in sodium chloride 0.9% (plus) 50 ML IV ×2 (15:43→22:26)
--- NOTE | 2024-07-12 16:35 | PM.HP ---
Providers/Chief Complaint Admitting Physician: Nilay Reaves MD Primary Care Provider: Antoinette Laird MD Chief Complaint: K81.9 History of Present Illness Bayron Omer is a 68 year old male with multiple medical comorbidities who presented for interval cholecystectomy for history of acute cholecystitis. procedure was technically complicated and a partial thickness injury of the duodenum was noted during dissection (which was repaired). patient will require admission to the hospital for post operative care and monitoring. patient stable after surgery. NG tube in place Review of Systems General: Reports: 10 or more systems reviewed and unremarkable except in HPI and below Medications/Allergies Home Medications Medication Instructions Recorded Confirmed Last Taken Type acetaminophen 500 mg tablet 500 mg PO Q6H PRN Pain 08/11/19 07/12/24 Unknown History ascorbic acid (vitamin C) 500 mg 500 mg PO DAILY 08/11/19 07/12/24 Unknown History capsule aspirin 81 mg tablet,delayed 81 mg PO DAILY 08/11/19 07/12/24 Unknown History release (Adult Low Dose Aspirin) atorvastatin 80 mg tablet 40 mg PO DAILY 08/11/19 07/12/24 07/11/24 History bupropion HCl 150 mg tablet,12 hr 150 mg PO QAM 08/11/19 07/12/24 07/11/24 History sustained-release cholecalciferol (vitamin D3) 10 400 unit PO DAILY 08/11/19 07/12/24 07/11/24 History mcg (400 unit) capsule clopidogrel 75 mg tablet 75 mg PO DAILY 08/11/19 07/12/24 07/06/24 History gabapentin 100 mg capsule 100 mg PO DAILY 08/11/19 07/12/24 07/11/24 History lisinopril 10 mg tablet 10 mg PO DAILY 08/11/19 07/12/24 Unknown History loratadine 10 mg tablet 10 mg PO DAILY 08/11/19 07/12/24 07/11/24 History methocarbamol 500 mg tablet 500 mg PO TID 08/11/19 07/12/24 07/11/24 History multivitamin 1 tab PO DAILY 08/11/19 07/12/24 07/11/24 History prazosin 2 mg capsule 2 mg PO .at bedtime 08/11/19 07/12/24 07/11/24 History testosterone cypionate 200 mg/mL 400 mg IM .monthly 08/11/19 07/12/2406/23/25 History intramuscular oil (Depo-Testosterone) zinc acetate 25 mg (zinc) capsule 50 mg PO DAILY 06/22/20 07/12/24 07/11/24 History (Galzin) levothyroxine 25 mcg tablet 50 mcg PO DAILY 08/08/20 07/12/24 07/11/24 History nitroglycerin 0.4 mg sublingual 0.4 mg sublingual Q5M PRN chest 08/08/20 07/12/24 Unknown Rx tablet (Nitrostat) pain #50 tabs metoprolol tartrate 25 mg tablet 25 mg PO BID 02/08/21 07/12/24 07/12/24 History Diabetic shoes with 3 sets of #1 ea 03/18/23 07/12/24 Unknown Rx insoles diabetic shoes with 3 inserts #1 ea 06/25/23 07/12/24 Unknown Rx night splint #1 ea 06/25/23 07/12/24 Unknown Rx diabetic shoes with 3 insterts #1 ea 03/23/24 07/12/24 Unknown Rx adalimumab-bwwd 40 mg/0.8 mL 40 mg SUBCUT Q14D 05/21/24 07/12/24 Unknown History subcutaneous auto-injector ferrous gluconate 324 mg (37.5 mg 324 mg PO DAILY 05/21/24 07/12/24 07/11/24 History iron) tablet furosemide 20 mg tablet 20 mg PO QAM 05/21/24 07/12/24 07/11/24 History lidocaine 5 % topical patch 1 patch topical DAILY 05/21/24 07/12/24 Unknown History empagliflozin 25 mg tablet 12.5 mg (1/2 x 25 mg) PO DAILY #1 05/24/24 07/12/24 07/11/24 Rx tab milk thistle 150 mg capsule 150 mg PO BID 06/29/24 07/12/24 07/11/24 History adalimumab 40 mg/0.8 mL 40 mg (0.8 mL) SUBCUT Q14D #2 ea 07/07/24 07/12/24 Unknown Rx subcutaneous pen kit (Humira Pen) leflunomide 20 mg tablet 20 mg PO DAILY #90 tabs 07/07/24 07/12/24 07/11/24 Rx Allergies Allergy/AdvReac Type Severity Reaction Status Date / Time No Known Allergies Allergy Verified 07/08/24 08:36 PFSH Acute PFSH: Medical History Polyarthralgia History of nonmelanoma skin cancer High risk medication use Inflammatory arthritis 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 Morbid obesity due to excess calories Atherosclerosis of coronary artery of [place] heart without angina pectoris Diabetes 1.5, managed as type 2 Dyslipidemia (high LDL; low HDL) Hypertension TUR (obstructive sleep apnea) Myocardial infarction CHF (congestive heart failure) Surgical History Hx of cataract extraction Hx of circumcision History of heart artery stent H/O wisdom tooth extraction Family History Father CAD (coronary artery disease) Grandfather Cancer Mother Chronic kidney disease (CKD) Stroke Sister Diabetes Denies family history of Clotting disorder Dementia Suicide Anesthesia complication Bleeding disorder Lung disease Social History Smoking and tobacco/nicotine status: former use of tobacco/nicotine Alcohol intake: current Alcohol intake frequency: holidays/special occasions only Substance/Drug Use: never Vitals/I&O/Wt Last Vital Signs Temp 97.4 F L 07/12/24 15:00 Pulse 82 07/12/24 15:00 Resp 16 07/12/24 15:00 BP 126/64 07/12/24 15:00 Pulse Ox 92 07/12/24 15:00 O2 Del Method Nasal Cannula 07/12/24 15:13 O2 Flow Rate 8 07/12/24 13:44 07/12/24 07/12/24 07/12/24 06:59 14:59 22:59 Intake Total 1550 / 1550 Output Total 200 / 200 Balance 1350 / 1350 Weight last 48 hrs Weight 257 lb Physical Exam Narrative: NG in place. ABdomen is soft and appropriately tender to palpation JOSE CARLOS drain with sanguinous output Data 07/12/24 08:11 A&P Assessment and plan (1) Cholecystitis: (2) S/P cholecystectomy: Plan 68 y/o M s/p laparoscopic cholecystectomy and repair of partial thickness duodenal injury. patient will be admitted for post operative observation and to ensure adequate progression after duodenal injury repair. plan is to keep patient NPO until tomorrow and monitor clinical progression and drain output. will plan on slow advancement of diet based on clinical progression. due to patient medical history I have asked our medical team for evaluation and management as inpatient. -NPO -IVF -Pain control -Iv ABX -medicine recommendations appreciated. Attestations Medical Necessity Statement*: patient will require 48 to 72 hours of hospital stay for post op management after laparoscopic cholecystectomy and repair of partial thickness duodenal injury. Coding Level of Care Code Acute Code for [facility] Diagnoses Cholecystitis K81.9 S/P cholecystectomy Z90.49
--- NOTE | 2024-07-12 16:51 | PM.OP ---
Operative Report Date of procedure: July 12, 2024 Pre-op diagnosis: Chronic cholecystitis, cholelitiasis Post-op diagnosis: Cholecystitis, duodenal partial thickness injury Post-op findings: The gallblader was inflamed and completelly surrounded by dense adhesions to omentum, duodenum and colon. upon mobilization of the omentun a small abscess cavity was noted near the fundus of the gallbladder. there were dense adhesions to the duodenum. a partial thickness injury to the duodenum was noted and repaired. Procedure done: Laparoscopic cholecystectomy, repair of duodenal partial thickenss injury. Implants: Vistaseal, 19 Fr Miguel drain Specimens removed/disposition: Gallblade and contents Surgeon: Nilay Reaves MD; Evan Faulkner MD Copper Flotation Operator: [facility] OR Staff Estimated blood loss: 200 Complications: Partial thickness duodenal injury which was repaired Brief History: 68 y/o M who had an episode of acute cholecystitis about 6 weeks ago and who presents for interval cholecystectomy after all risk and benefits were discussed. Procedure: patient was taken to the OR and placed in a supine position. General anesthesia was given. the abdomen was prepped and draped in the usual sterile fashion. a time out was done. the abdomen was accessed on the left upper quadrant using optiview technique and a 5mm trocar. penumoperitoneum was achieved and no evidence of visceral injury during entry was noted. a 12 mm trocar was placed in the supraumbilical region under direct visualization. additional 5mm trocars were placed in the epigastrium, RUQ and right flank under direct visualization. the patient was placed in steep reverse [place] and with the left side down. the gallblader was noted to be inflamed and covered by the omentum. there were extensive inflammatory changes in the tissue surrounding the gallblader. with careful dissection with electrocautery I started taking down the omentum from the fundus, I immediately entered a pocket of purulence adjacent to the fundus. the tissue was thickened and significant inflamatory runts. it was impossible to identify the anatomy.at this time I decided to ask Dr. Faulkner for assistance with the case due to additional expertise in management of biliary pathology. Dr. Faulkner scrubbed in and took over dissection (a separate dictation has been documented for his involvement in the case) with carefull blunt dissection the omentum surrounding the gallblader was taken down. unfortunately during anterior dissection the duodenum was noted to be adhered to the infundibulum of the gallblader an a partial thickness injury was created during mobilization. there was bulging of the mucosa noted but no evidence of penetration into the lumen. the injury was about 2cm in length. this was repaired with four interrupted #3-0 vicryl sutures. The dissection was then continued in the hepatocystic triangle and with blunt disection the cystic duct and artery were encircled. this were then clipped and transected. the epigastric trocar was upsised to a 12mm. the gallblader was removed from the liver bed with electrocautery. during removal of the gallblader bleeding from the liver bed was noted and controlled with a clip. due to severe inflamation and a intrahepatic gallblader significant effort was reqired to remove it from the liver bed causing leakage of stones from the gallblader. once the specimen was removed it was taken out in an endocatch bag through the epigastric trocar site. the gallstones that leaked were retrieved and taken out i the bag with the gallblader. venous bleeding from the liver was then controlled with a combination of electrocautery and surgicell. once this portion of the procedure was completed Dr. Faulkner scrubbed out nd I took over the remaining of the procedure. the liver bed was irrigated with about 2 liters of saline and hemostasis was verified. the abdomen was inspected and any biliarry residue was retrieved. the duodenal repair was visualized and vistaseal was applied. a 19 polish miguel drain was placed in the liver bed and delivered via the right flank trocar site. the drain was fixed with #3-0 Nylon. the omentum was pulled up and positioned in the RUQ to cover the area of repair. the epigastric trocar site and umbilical trocar sites were closed with #0 vicryl using a nick tomasson under direct visualization. the right upper quadrant trocar was removed under direct visualization and the left upper quadrant trocar was used to evacuate the pneumoperitoneum and removed. local anesthesia was infiltrated on the wounds. the wounds were closed in layers using #3-0 Vicryl for the subcutaneous tissue and #4-0 monocryl for the skin. the patient tolerated the procedure well. at the end of the procedure all counts were correct, the patient was extubated and transfered to PACU in stable condition.
[2024-07-12 17:04] LABS: Glucose Point of Care 72 mg/dL (70-110)
--- NOTE | 2024-07-12 17:45 | ANE.PACU2 ---
Inpatient post-anesthesia follow up: Airway intact: Yes Vital signs: Temperature 98.0 F Pulse Rate 95 Respiratory Rate 18 Blood Pressure 148/69 Pulse Oximetry 93 Oxygen Delivery Me thod Room Air Oxygen Flow Rate 8 Fraction of Inspir ed Oxygen Hydration adequate: Yes Nausea and vomiting: No Pain level: 2 Mental status: Baseline
[2024-07-12] MEDS: HYDROmorphone 1 mg/mL INJ 1 mL 0.5 MG IVP (18:27)
[2024-07-12] MEDS: sodium chloride 0.9% 1,000 ML 75 ML IV (18:28)
[2024-07-12 20:21] LABS: Glucose Point of Care 186 mg/dL (70-110)
[2024-07-13] VITALS (12 sets, daily range): BP systolic 108–145; BP diastolic 58–83; PULSE 96–114; RESP 16–18; TEMP 36.4–37; O2SAT 91–96
[2024-07-13] MEDS: pantoprazole 40 mg SDV IVP ×2 (01:54→14:20)
[2024-07-13] MEDS: HYDROmorphone 1 mg/mL INJ 1 mL 0.5 MG IVP ×3 (02:03→20:11)
[2024-07-13 06:03] LABS: Basophils % 0.3 %; Hematocrit 45.9 % (37-53); Lymphocytes # 1.1 10^3/uL (0.8-4.8); Lymphocytes % 8.4 %; Mean Corpuscular HGB Conc 30.9 g/dL (30-55); Mean Corpuscular Hemoglobin 29.5 pg (27-33); Mean Corpuscular Volume 95.2 fl (82-101); Mean Platelet Volume 12.7 fL (7.4-10.4); Monocytes # 1.1 10^3/uL (0.2-0.9); Monocytes % 7.8 %; Neutrophils # 11.13 10^3/uL (1.8-7.7); Neutrophils % 83.1 %; Nucleated Red Blood Cells % 0 %; Platelet Count 201 10^3/cmm (157-399); Red Blood Count 4.82 10^6/uL (3.85-5.65); Red Cell Distribution Width 16.6 % (12.1-15.1); White Blood Count 13.39 10^3/uL (3.29-11.43)
[2024-07-13] MEDS: sodium chloride 0.9% 1,000 ML 75 ML IV (06:26)
[2024-07-13] MEDS: piperacillin-tazobactam 3.375 GM in sodium chloride 0.9% (plus) 50 ML IV ×3 (06:26→22:44)
[2024-07-13 06:29] LABS: Alanine Aminotransferase 58 U/L (0-41); Albumin Level 3.9 g/dL (3.5-5.2); Alkaline Phosphatase 73 U/L (40-130); Anion Gap 18.4 (5-19); Aspartate Amino Transferase 83 U/L (0-40); Blood Urea Nitrogen 40 mg/dL (8-23); Calcium 8.2 mg/dL (8.5-10.5); Carbon Dioxide 21 mmol/L (22-29); Chloride 104 mmol/L (98-107); Globulin 2.3 g/dL (1.3-4.6); Glomerular Filtration Rate 25.7 mL/min (90-130); Glucose 158 mg/dL (65-115); Osmolality Calculated 297 mOsm/kg (285-295); Potassium 6.4 mmol/L (3.5-5.1); Sodium 137 mmol/L (136-145); Total Bilirubin 0.4 mg/dL (0.15-1.2); Total Protein 6.2 g/dL (6.6-8.7)
[2024-07-13 06:29] LABS: Glucose Point of Care 162 mg/dL (70-110)
[2024-07-13 06:35] LABS: Magnesium 2.1 mg/dL (1.7-2.3); Phosphorus 1.7 mg/dL (2.5-4.5)
--- NOTE | 2024-07-13 08:20 | P.PN_ITS ---
Subjective 2 Subjective: Postoperative day 1 status post laparoscopic cholecystectomy and repair of duodenal partial-thickness injury. Patient is doing well, NG tube output has been minimal. No significant abdominal pain, JOSE CARLOS drain output has been sanguinous. patient has been ambulating voiding freely. Vitals/I&O/Wt Last Vital Signs Temp 98.3 F 07/13/24 07:43 Pulse 110 H 07/13/24 07:43 Resp 17 07/13/24 07:43 BP 117/60 07/13/24 07:43 Pulse Ox 91 07/13/24 07:43 O2 Del Method Room Air 07/13/24 07:43 O2 Flow Rate 8 07/12/24 13:44 07/12/24 07/13/24 07/13/24 22:59 06:59 14:59 Intake Total 203 / 1753 1050 / 2803 Output Total 402 / 602 40 / 642 Balance -199 / 1151 1010 / 2161 Weight last 48 hrs Weight 257 lb 14.4 oz Weight 257 lb Physical Exam 2 GI: OTHER: Abdomen is soft appropriately tender nondistended. JOSE CARLOS with sanguinous output. Data 07/13/24 05:30 07/13/24 05:30 A&P Assessment and plan (1) Cholecystitis: (2) S/P cholecystectomy: Plan 68-year-old male who is postoperative day 1 status post laparoscopic cholecystectomy and repair of duodenal partial-thickness injury. Patient is doing well, NG tube output has been minimal. Quality of the drainage of the JOSE CARLOS drain is sanguinous. I had extensive discussion with the patient regarding the intraoperative events. They have explained that we will do a very slow advancement of diet and he will be discharged home on a liquid diet as we would like to be very cautious due to the fact that he had a partial-thickness injury of the duodenum during dissection. Patient shows understanding agrees with the plan. At the moment since the output from the NG the tube has been minimal we will remove NG tube and allow the patient to have sips and chips of water and meds. If by tomorrow he is doing well we will advance him to a clear liquid diet. White count is 13, liver function tests are very minimally elevated and bilirubin is normal. Has a slightly elevated heart rate but has not been taking his home dose of metoprolol. PDMP PDMP Reviewed: Not Reviewed Attestations 2 Medical Necessity Statement*: Patient will require 24 to 48 hours of hospital stay for continued management after surgery Coding Level of Care Code Acute Code for Chg Fwd Diagnoses Cholecystitis K81.9 S/P cholecystectomy Z90.49
[2024-07-13] MEDS: levothyroxine 100 mcg SDV 25 MCG IVP (08:44)
[2024-07-13] MEDS: insulin lispro 100 unit/1 mL SUBCUT (08:49)
--- NOTE | 2024-07-13 09:06 | ECG_ITS ---
[employer] Test Date: 2024-07-13 Pat Name: Bayorn Omer Department: Room: 279 Gender: Male Bundle Shaker: : 1955 Requested By: Praveen Burton Order Number: [id number] Navarro MD: Bhaskar Gilmore M.D. Measurements Intervals [place] Rate: 103 P: 46 MN: 163 QRS: -71 QRSD: 87 T: 79 QT: 314 QTc: 412 Interpretive Statements SINUS TACHYCARDIA LEFT ANTERIOR FASCICULAR BLOCK [QRS AXIS <= -45, QR IN I, RS IN II] POSSIBLE ANTERIOR MYOCARDIAL INFARCTION , OF INDETERMINATE AGE [30 ms Q WAVE IN V3/V4, OR R < 0.2 mV IN V4] INFERIOR MYOCARDIAL INFARCTION , OF INDETERMINATE AGE [40+ ms Q WAVE AND/OR ST/T ABNORMALITY IN II/aVF] Compared to ECG 07/06/2024 08:55:26 Left anterior fascicular block now present Left-axis deviation no longer present Myocardial infarct finding still present Electronically Signed On 07-15-2024 22:03:56 DIRECTOR OF SUSTAINABILITY PROGRAMS by Bhaskar Gilmore M.D. [email or web address]
[2024-07-13] MEDS: calcium gluconate 0.1 gm/mL 10% SDV 10mL 1 GM IVP (09:16)
[2024-07-13] MEDS: insulin regular-human 100 units/1 mL 10 UNIT IVP (09:19)
[2024-07-13 10:06] LABS: Glucose Point of Care 96 mg/dL (70-110)
--- NOTE | 2024-07-13 10:18 | PC.CHAP ---
Pastoral Care Encounter/Spiritual Assessment Type of Contact [] Declined geek squad agent visit [] Patient/Family/Request visit [] Outpatient visit [] Follow-up visit [] Physician referral [] Code/Alert [x] Routine visit [] Staff referral [] Actively dying [] Patient sleeping [] Family support [] [] Out of room [] Palliative care [] [] Receiving care in room [] Pre-surgical visit [] Trauma [] Long length of stay [] ICU visit [] Other: Relational/Emotional Strength [x] Patient feels connected with others/family/visitors/staff [] Distress [] Loneliness/isolation [] Abandonment Spirituality of Patient [x] Person of Akanksha [] Attends Confucianist of their Akanksha [x] Believes in Prayer [] Reads Bible or Catholic materials [] There are Spiritual issues to be addressed Animal Husbandry Manager Interventions [x] Prayer [x] Active listening [] Non-anxious presence [x] Spiritual/emotional support [] Crisis/trauma care [] Spiritual counseling [] Bereavement support [] Provided bereavement packet [] Provided Bible/devotional materials [] Provided toy/stuffed animal, coloring book to patient or family member [] Provided Communion [] Anointing/[place] [] Salvation [x] Completed spiritual assessment [] Other: Impact on Illness or Injury [] Angry [] Fearful [] Anxious [] Often cries [] Exhaustion [] Unable to work [] Unable to attend bahai [] Unable to walk/stand [] Unable to read [] Unable to drive [] Unable to eat/drink [] Unable to sleep [] Unable to be with family [] Patient intubated [] Other: Summary Time spent with patient 5 min
[2024-07-13] MEDS: metoprolol tartrate 25 mg Tablet PO ×2 (11:56→20:11)
[2024-07-13 13:57] LABS: Basophils # 0.1 10^3/uL (0.0-0.1); Basophils % 0.6 %; Eosinophils % 0.1 %; Lymphocytes # 1.1 10^3/uL (0.8-4.8); Lymphocytes % 8.3 %; Mean Corpuscular HGB Conc 31.2 g/dL (30-55); Mean Corpuscular Hemoglobin 30.5 pg (27-33); Mean Corpuscular Volume 97.9 fl (82-101); Mean Platelet Volume 12.4 fL (7.4-10.4); Monocytes % 7.9 %; Neutrophils # 10.51 10^3/uL (1.8-7.7); Neutrophils % 82.6 %; Nucleated Red Blood Cells % 0 %; Platelet Count 191 10^3/cmm (157-399); Red Blood Count 4.19 10^6/uL (3.85-5.65); Red Cell Distribution Width 16.8 % (12.1-15.1)
[2024-07-13 14:12] LABS: Blood Urea Nitrogen 30 mg/dL (8-23); Calcium 6.2 mg/dL (8.5-10.5); Carbon Dioxide 17 mmol/L (22-29); Chloride 110 mmol/L (98-107); Creatinine Clr Calc Pharmacy 49.3476; Glomerular Filtration Rate 40.2 mL/min (90-130); Glucose 84 mg/dL (65-115); Osmolality Calculated 295 mOsm/kg (285-295); Sodium 140 mmol/L (136-145)
[2024-07-13 14:13] LABS: Anion Gap 17.1 (5-19); Potassium 4.1 mmol/L (3.5-5.1)
[2024-07-13 14:19] LABS: Estmated Average Glucose 105; Hemoglobin A1C 5.3 % (4.0-6.0)
[2024-07-13 14:21] LABS: NT Pro B Type Natriuretic Pept 518 pg/mL (0-125)
[2024-07-13 14:27] LABS: Thyroid Stimulating Hormone 1.28 uIU/mL (0.27-4.20)
--- NOTE | 2024-07-13 15:32 | PM.MISC ---
Miscellaneous Note Purpose of Documentation: Update on patient care. Note: Patient is doing well today, has been able to ambulate. Has been mildly tachycardic. He was restarted on his metoprolol today. Slight abdominal pain especially in the right upper quadrant. JOSE CARLOS drain appears to be more serosanguineous. Will continue current management for now, we will decide on treatment course tomorrow morning after morning labs are done.
[2024-07-13 16:49] LABS: Glucose Point of Care 122 mg/dL (70-110)
--- NOTE | 2024-07-13 17:35 | P.PN_ITS ---
Subjective 2 Subjective: Patient was seen this morning, he is able to ambulate around the room, no fevers, no chills, no cough does have abdominal pain, no bowel movement Vitals/I&O/Wt Last Vital Signs Temp 98.0 F 07/13/24 15:25 Pulse 101 H 07/13/24 15:25 Resp 17 07/13/24 15:25 BP 108/72 07/13/24 15:25 Pulse Ox 91 07/13/24 15:25 O2 Del Method Room Air 07/13/24 15:25 O2 Flow Rate 8 07/12/24 13:44 07/13/24 07/13/24 07/13/24 06:59 14:59 22:59 Intake Total 1050 / 2803 781.25 / 781.25 Output Total 40 / 642 Balance 1010 / 2161 781.25 / 781.25 Weight last 48 hrs Weight 116.981 kg Weight 116.573 kg Physical Exam 2 Const: COMMON NORMALS: no acute distress and patient oriented x3 Resp: COMMON NORMALS: normal respiratory effort, No retractions, No use of accessory muscles and clear to auscultation bilaterally AUSCULTATION: clear to auscultation bilaterally Cardio: COMMON NORMALS: regular rate, regular rhythm, S1 normal heart sound present and S2 normal heart sound present RATE: regular rate RHYTHM: r egular rhythm HEART SOUNDS: S1 normal heart sound present and S2 normal heart sound present GI: OTHER: abdomen soft, slightly distended, scattered bowel sounds, no gaurding, no rigifity, deepa drain in place Extremity: NARRATIVE EXTREMITY EXAM: 1+ edema Neuro: COMMON NORMALS: patient oriented x3 Psych: COMMON NORMALS: mental status grossly normal Data 07/13/24 05:30 07/13/24 13:41 A&P Assessment and plan (1) 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: Qualifiers: Heart failure chronicity: chronic Qualified Code(s): I50.32 - Chronic diastolic (congestive) heart failure; I25.10 - Atherosclerotic heart disease of [place] coronary artery without angina pectoris (2) Diabetes 1.5, managed as type 2: (3) Dyslipidemia (high LDL; low HDL): (4) S/P cholecystectomy: (5) Chronic kidney disease (CKD) stage G4/A1, severely decreased glomerular filtration rate (GFR) between 15-29 mL/min/1.73 square meter and albuminuria creatinine ratio less than 30 mg/g: (6) Ischemic cardiomyopathy: (7) CAD (coronary artery disease): Plan Status post laparoscopic cholecystectomy, laparoscopic repair of duodenal tear, ESBL 200 cc Plan -General Surgery primary -N.p.o. -NG tube out -Morphine for pain control -Normal saline at 50 cc an hour -Zosyn for antibiotic coverage -Zofran for nausea -Serial abdominal exams -SCDs for DVT prophylaxis, Lovenox currently on hold -Full code CKD, IV fluids as above, monitor kidney function CAD -Discussed with patient risk and benefits of holding aspirin and Plavix, he voiced understanding, all questions answered, shared decision making hold for now Diastolic CHF -Follow-up for fluid overload Hypertension, monitor Obstructive sleep apnea, will try CPAP Type 2 diabetes mellitus, low-dose sliding scale, check A1c PDMP PDMP Reviewed: Not Reviewed Attestations 2 Medical Necessity Statement*: Patient requires hospitalization for CKD, CAD,Status post laparoscopic cholecystectomy, laparoscopic repair of duodenal tear Diagnoses Chronic diastolic heart failure secondary to coronary artery disease I50.32; I25.10 Heart failure chronicity: chronic Diabetes 1.5, managed as type 2 E13.9 Dyslipidemia (high LDL; low HDL) E78.5 S/P cholecystectomy Z90.49 Chronic kidney disease (CKD) stage G4/A1, severely decreased glomerular filtration rate (GFR) between 15-29 mL/min/1.73 square meter and albuminuria creatinine ratio less than 30 mg/g N18.4 Ischemic cardiomyopathy I25.5 CAD (coronary artery disease) I25.10
[2024-07-13 20:21] LABS: Glucose Point of Care 121 mg/dL (70-110)
[2024-07-13] MEDS: sodium chloride 0.9% 1,000 ML 50 ML IV (22:44)
[2024-07-14] VITALS (9 sets, daily range): BP systolic 95–155; BP diastolic 56–85; PULSE 96–103; RESP 15–20; TEMP 36.6–37.7; O2SAT 91–98
[2024-07-14] MEDS: pantoprazole 40 mg SDV IVP ×2 (02:19→15:21)
[2024-07-14 05:31] LABS: Basophils # 0.1 10^3/uL (0.0-0.1); Eosinophils # 0.1 10^3/uL (0.0-0.8); Eosinophils % 0.5 %; Hematocrit 44.1 % (37-53); Lymphocytes # 1.1 10^3/uL (0.8-4.8); Lymphocytes % 9.6 %; Mean Corpuscular HGB Conc 30.8 g/dL (30-55); Mean Corpuscular Hemoglobin 30.1 pg (27-33); Mean Corpuscular Volume 97.6 fl (82-101); Mean Platelet Volume 12.2 fL (7.4-10.4); Monocytes % 8.5 %; Neutrophils # 9.22 10^3/uL (1.8-7.7); Neutrophils % 79.9 %; Nucleated Red Blood Cells % 0 %; Platelet Count 191 10^3/cmm (157-399); Red Blood Count 4.52 10^6/uL (3.85-5.65); Red Cell Distribution Width 16.9 % (12.1-15.1); White Blood Count 11.54 10^3/uL (3.29-11.43)
[2024-07-14 05:54] LABS: Magnesium 2.1 mg/dL (1.7-2.3); Phosphorus 1.4 mg/dL (2.5-4.5)
[2024-07-14] MEDS: piperacillin-tazobactam 3.375 GM in sodium chloride 0.9% (plus) 50 ML IV ×3 (05:57→23:20)
[2024-07-14 05:58] LABS: Alanine Aminotransferase 33 U/L (0-41); Albumin Level 3.9 g/dL (3.5-5.2); Alkaline Phosphatase 78 U/L (40-130); Blood Urea Nitrogen 35 mg/dL (8-23); Carbon Dioxide 21 mmol/L (22-29); Chloride 105 mmol/L (98-107); Creatinine Clr Calc Pharmacy 38.0997; Globulin 2.6 g/dL (1.3-4.6); Glomerular Filtration Rate 29.8 mL/min (90-130); Glucose 120 mg/dL (65-115); Osmolality Calculated 299 mOsm/kg (285-295); Sodium 140 mmol/L (136-145); Total Bilirubin 0.6 mg/dL (0.15-1.2); Total Protein 6.5 g/dL (6.6-8.7)
[2024-07-14 06:00] LABS: Anion Gap 19.7 (5-19); Aspartate Amino Transferase 56 U/L (0-40); Potassium 5.7 mmol/L (3.5-5.1)
[2024-07-14] MEDS: HYDROmorphone 1 mg/mL INJ 1 mL 0.5 MG IVP ×3 (06:03→21:21)
[2024-07-14 06:10] LABS: Glucose Point of Care 128 mg/dL (70-110)
--- NOTE | 2024-07-14 07:39 | PM.PN ---
Subjective Subjective: This is a postoperative day 2 status post laparoscopic cholecystectomy and repair of partial-thickness injury of the duodenum. Patient has been doing okay over the last 24 hours. Tachycardia has improved. Has not had a bowel movement or passed gas yet but has been ambulating a lot. Denies significant abdominal pain. Vitals/I&O/Wt Last Vital Signs Temp 97.8 F 07/14/24 04:00 Pulse 99 07/14/24 04:00 Resp 18 07/14/24 06:03 BP 127/64 07/14/24 04:00 Pulse Ox 93 07/14/24 04:00 O2 Del Method Room Air 07/14/24 04:00 O2 Flow Rate 8 07/12/24 13:44 07/13/24 07/14/24 07/14/24 22:59 06:59 14:59 Intake Total 798.75 / 1580.00 530 / 2110.00 Output Total 50 / 50 52 / 102 Balance 748.75 / 1530.00 478 / 2008.00 Weight last 48 hrs Weight 257 lb 8 oz Weight 257 lb 14.4 oz Physical Exam GI: OTHER: Abdomen is soft, appropriately tender to palpation. JOSE CARLOS drain with serosanguineous output. Bowel sounds are present Data 07/14/24 05:00 07/14/24 05:00 A&P Assessment and plan (1) Cholecystitis: Plan Patient showing adequate progression in the last 24 hours. His vital signs have been stable and his tachycardia has improved. His white count has also improved. Liver function test are almost completely normal, normal bilirubin. The output from the JOSE CARLOS drain has been serosanguineous in nature. All of these findings are positive. His kidney function slightly worse today. At this point we will start him on a clear liquid diet. If he is tolerating clear liquid diet by tomorrow we will remove JOSE CARLOS drain and allow him to transition to the outpatient setting on a full liquid diet. Patient shows understanding agrees with the plan. I appreciate medical team management of comorbidities and guidance with management of TERRY on CKD. PDMP PDMP Reviewed: Not Reviewed Attestations Medical Necessity Statement*: Patient will require another 24 to 48 hours of hospital stay to ensure adequate clinical progression. Coding Level of Care Code Acute Code for [facility] Diagnoses Cholecystitis K81.9
[2024-07-14 08:45] LABS: C Reactive Protein 191.8 mg/L (0.0-4.9)
[2024-07-14 08:52] LABS: Procalcitonin 0.75 ng/mL (0-0.5)
[2024-07-14] MEDS: calcium gluconate 0.9% NaCL 1 GM/50 ML PREMIX IV (08:56)
[2024-07-14] MEDS: levothyroxine 100 mcg SDV 25 MCG IVP (08:56)
[2024-07-14] MEDS: insulin regular-human 100 units/1 mL 10 UNIT IVP (08:56)
[2024-07-14 11:45] LABS: Glucose Point of Care 107 mg/dL (70-110)
--- NOTE | 2024-07-14 12:29 | PC.SOCIAL ---
IMM Update pg 2 of IMM Updated and reviewed w/ patient. Copy provided and Copy dated, initialed and placed in chart.
--- NOTE | 2024-07-14 13:21 | PM.MISC ---
Miscellaneous Note Purpose of Documentation: Update on patient care Note: I have seen the patient is afternoon. He is doing well, feeling better than in the morning, has been walking, no fever chills nausea or vomit. JOSE CARLOS drain has been putting out serosanguineous output. He has tolerated clear liquids, has not had bowel function yet. On examination his abdominal exam is benign abdomen is soft very minimally tender to palpation in the right upper quadrant, there is good bowel sounds in 4 quadrants. Will continue current management. Will keep him on clear liquid diet over the next 24 hours. I appreciate management per medical team.
[2024-07-14 15:19] LABS: Anion Gap 15.8 (5-19); Blood Urea Nitrogen 30 mg/dL (8-23); Calcium 8.8 mg/dL (8.5-10.5); Carbon Dioxide 23 mmol/L (22-29); Chloride 102 mmol/L (98-107); Creatinine Clr Calc Pharmacy 41.9097; Glomerular Filtration Rate 33.3 mL/min (90-130); Glucose 147 mg/dL (65-115); Osmolality Calculated 291 mOsm/kg (285-295); Potassium 4.8 mmol/L (3.5-5.1); Sodium 136 mmol/L (136-145)
--- NOTE | 2024-07-14 16:11 | P.PN_ITS ---
Subjective 2 Subjective: Patient was seen this morning, he was ambulatory yesterday he tells me, denies any fevers, no chills, no nausea, abdominal pain is minimal, does have edema, but no shortness of breath, no cough Vitals/I&O/Wt Last Vital Signs Temp 98.1 F 07/14/24 13:00 Pulse 102 H 07/14/24 13:00 Resp 16 07/14/24 15:26 BP 130/72 07/14/24 13:00 Pulse Ox 97 07/14/24 13:00 O2 Del Method Room Air 07/14/24 07:58 O2 Flow Rate 8 07/12/24 13:44 07/14/24 07/14/24 07/14/24 06:59 14:59 22:59 Intake Total 530 / 2109.00 1007.5 / 1007.5 Output Total 52 / 102 Balance 478 / 2007.00 1007.5 / 1007.5 Weight last 48 hrs Weight 116.8 kg Weight 116.981 kg Physical Exam 2 Const: COMMON NORMALS: no acute distress and patient oriented x3 Resp: COMMON NORMALS: normal respiratory effort, No retractions, No use of accessory muscles and clear to auscultation bilaterally AUSCULTATION: clear to auscultation bilaterally Cardio: COMMON NORMALS: regular rate, regular rhythm, S1 normal heart sound present and S2 normal heart sound present RATE: regular rate RHYTHM: r egular rhythm HEART SOUNDS: S1 normal heart sound present and S2 normal heart sound present GI: OTHER: Abdomen soft, distended, diminished bowel sounds in all 4 quadrant, no guarding, no rebound, no rigidity Extremity: NARRATIVE EXTREMITY EXAM: 2+ edema Neuro: COMMON NORMALS: patient oriented x3 Psych: COMMON NORMALS: mental status grossly normal Data 07/14/24 05:00 07/14/24 14:49 A&P Assessment and plan (1) 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: Qualifiers: Heart failure chronicity: chronic Qualified Code(s): I50.32 - Chronic diastolic (congestive) heart failure; I25.10 - Atherosclerotic heart disease of [place] coronary artery without angina pectoris (2) Diabetes 1.5, managed as type 2: (3) Dyslipidemia (high LDL; low HDL): (4) S/P cholecystectomy: (5) Chronic kidney disease (CKD) stage G4/A1, severely decreased glomerular filtration rate (GFR) between 15-29 mL/min/1.73 square meter and albuminuria creatinine ratio less than 30 mg/g: (6) Ischemic cardiomyopathy: (7) CAD (coronary artery disease): Plan Status post laparoscopic cholecystectomy, laparoscopic repair of duodenal tear, ESBL 200 cc Plan -General Surgery primary -Chronic meds -NG tube out -Morphine for pain control -Normal saline at 50 cc an hour has been stopped due to developing fluid overload lower extremities, will recheck creatinine this afternoon -Zosyn for antibiotic coverage -Zofran for nausea -Serial abdominal exams -SCDs for DVT prophylaxis, Lovenox currently on hold -Full code CKD, IV fluids held as above, monitor kidney function CAD -Discussed with patient risk and benefits of holding aspirin and Plavix, he voiced understanding, all questions answered, shared decision making hold for now Diastolic CHF -Follow-up for fluid overload Hypertension, monitor Obstructive sleep apnea, will try CPAP Type 2 diabetes mellitus, low-dose sliding scale, check A1c 5.3 PDMP PDMP Reviewed: Not Reviewed Attestations 2 Medical Necessity Statement*: Patient requires hospitalization status post laparoscopic cholecystectomy, laparoscopic repair of duodenal tear, fluids on hold due to concerns for fluid overload, monitor heart rates continue metoprolol, resume gabapentin, Minipress, bupropion Diagnoses Chronic diastolic heart failure secondary to coronary artery disease I50.32; I25.10 Heart failure chronicity: chronic Diabetes 1.5, managed as type 2 E13.9 Dyslipidemia (high LDL; low HDL) E78.5 S/P cholecystectomy Z90.49 Chronic kidney disease (CKD) stage G4/A1, severely decreased glomerular filtration rate (GFR) between 15-29 mL/min/1.73 square meter and albuminuria creatinine ratio less than 30 mg/g N18.4 Ischemic cardiomyopathy I25.5 CAD (coronary artery disease) I25.10
[2024-07-14 16:58] LABS: Glucose Point of Care 125 mg/dL (70-110)
[2024-07-14 20:25] LABS: Glucose Point of Care 136 mg/dL (70-110)
[2024-07-14] MEDS: metoprolol tartrate 25 mg Tablet PO (21:20)
[2024-07-14] MEDS: prazosin 1 mg Capsule 2 MG PO (21:20)
[2024-07-15] VITALS: BP 108/56; PULSE 95; RESP 17; TEMP 36.6; O2SAT 97
[2024-07-15 02:46] LABS: Basophils # 0.1 10^3/uL (0.0-0.1); Basophils % 1.2 %; Eosinophils # 0.1 10^3/uL (0.0-0.8); Eosinophils % 1.5 %; Hematocrit 42.6 % (37-53); Lymphocytes # 1.2 10^3/uL (0.8-4.8); Lymphocytes % 16.9 %; Mean Corpuscular HGB Conc 30.5 g/dL (30-55); Mean Corpuscular Hemoglobin 29.6 pg (27-33); Mean Platelet Volume 12.1 fL (7.4-10.4); Monocytes # 0.6 10^3/uL (0.2-0.9); Monocytes % 8.4 %; Neutrophils # 4.87 10^3/uL (1.8-7.7); Neutrophils % 71.6 %; Nucleated Red Blood Cells % 0 %; Platelet Count 155 10^3/cmm (157-399); Red Blood Count 4.39 10^6/uL (3.85-5.65); Red Cell Distribution Width 16.5 % (12.1-15.1)
[2024-07-15 03:07] LABS: C Reactive Protein 150.3 mg/L (0.0-4.9)
[2024-07-15 03:09] LABS: Alanine Aminotransferase 22 U/L (0-41); Albumin Level 3.7 g/dL (3.5-5.2); Alkaline Phosphatase 69 U/L (40-130); Anion Gap 18.8 (5-19); Aspartate Amino Transferase 38 U/L (0-40); Blood Urea Nitrogen 30 mg/dL (8-23); Calcium 8.9 mg/dL (8.5-10.5); Carbon Dioxide 22 mmol/L (22-29); Chloride 107 mmol/L (98-107); Creatinine Clr Calc Pharmacy 38.0997; Globulin 2.4 g/dL (1.3-4.6); Glomerular Filtration Rate 29.8 mL/min (90-130); Glucose 140 mg/dL (65-115); Osmolality Calculated 304 mOsm/kg (285-295); Potassium 4.8 mmol/L (3.5-5.1); Sodium 143 mmol/L (136-145); Total Bilirubin 0.6 mg/dL (0.15-1.2); Total Protein 6.1 g/dL (6.6-8.7)
[2024-07-15 03:10] LABS: Phosphorus 1.6 mg/dL (2.5-4.5)
[2024-07-15] MEDS: pantoprazole 40 mg SDV IVP (03:23)
[2024-07-15 03:53] VITALS: BP 136/84; PULSE 98; RESP 16; TEMP 36.4; O2SAT 95
[2024-07-15] MEDS: buPROPion SR (12 HR) 150 mg Tablet PO (06:05)
[2024-07-15] MEDS: piperacillin-tazobactam 3.375 GM in sodium chloride 0.9% (plus) 50 ML IV (06:05)
[2024-07-15 06:33] LABS: Glucose Point of Care 133 mg/dL (70-110)
--- NOTE | 2024-07-15 07:00 | P.PN_ITS ---
Subjective 2 Subjective: Postoperative day 3 status post lap jing and repair of partial-thickness injury to the duodenum. Doing very well in the last 24 hours passing a lot of gas, no significant abdominal pain. Tolerating diet. Vital signs have remained stable. Vitals/I&O/Wt Last Vital Signs Temp 97.5 F L 07/15/24 03:53 Pulse 98 07/15/24 03:53 Resp 16 07/15/24 03:53 BP 136/84 07/15/24 03:53 Pulse Ox 95 07/15/24 03:53 O2 Del Method Room Air 07/15/24 03:53 O2 Flow Rate 8 07/12/24 13:44 07/14/24 07/15/24 07/15/24 22:59 06:59 14:59 Intake Total 1009.2066.5 Output Total 42 42 Balance 1009.2024.5 Weight last 48 hrs Weight 276 lb 3 oz Weight 257 lb 8 oz Physical Exam 2 GI: OTHER: Good bowel sounds. Abdomen soft appropriately tender. JOSE CARLOS drain with only 50 cc of serosanguineous output. Data 07/15/24 02:36 07/15/24 02:36 A&P Assessment and plan (1) S/P cholecystectomy: Plan Patient is showing very good progression over the last 24 hours. He has been passing gas and feels like he will have a bowel movement soon. Denies any significant abdominal pain. No fever and chills. White count is normal. CRP trended down. Normal LFTs. Creatinine has been hovering around 2-2.2 and BUN between 30 and 35. From the surgical standpoint on we plan to advance to a full liquid diet, patient will be discharged on a full liquid diet for the next week and then advance as tolerated in the outpatient setting. Will discuss case with medical team today, depending on their evaluation we will plan on discharge either later this afternoon or in the morning tomorrow. She will be cleared to resoon aspirin Today and Plavix after the drain is removed. PDMP PDMP Reviewed: Not Reviewed Attestations 2 Medical Necessity Statement*: Patient for possible discharge later today or tomorrow morning. Coding Level of Care Code Acute Code for Chg Fwd Diagnoses S/P cholecystectomy Z90.49
[2024-07-15 07:36] VITALS: BP 107/65; PULSE 95; RESP 17; TEMP 36.7; O2SAT 95
[2024-07-15] MEDS: levothyroxine 100 mcg SDV 25 MCG IVP (09:24)
[2024-07-15] MEDS: gabapentin 100 mg Capsule PO (09:24)
[2024-07-15] MEDS: atorvastatin 40 mg Tablet PO (09:24)
--- NOTE | 2024-07-15 10:33 | P.PN_ITS ---
Subjective 2 Subjective: - Patient was seen this morning he is al ert oriented x 3, following all commands and was ambulatory, does have 1+ pitting edema no shortness of breath no abdominal pain, JOSE ACRLOS drain in place does have scattered bowel sounds, no nausea, no vomiting, no chest pain -Discussed remaining ambulatory, monitor for signs of DVT or PE if so come back to the hospital -Creatinine discharge 2.2 which is about at baseline, start Lasix tomorrow -Start aspirin and Plavix as per discuss ion with general surgery on Friday -If any chest pain, palpitations please go to emergency room -Monitor for worsening abdominal pain ne eds over the emergency room -For his type 2 diabetes mellitus he can continue his home medications -But I did send in a NovoLog sliding sca le for blood sugar control -For his immunologic medications he is t o hold them until he sees Dr. Fletcher, hold for at least 1 month -General Surgery will send him home on a ntibiotics, and pain control -Monitor blood pressure closely Vitals/I&O/Wt Last Vital Signs Temp 98.0 F 07/15/24 07:36 Pulse 95 07/15/24 07:36 Resp 17 07/15/24 07:36 BP 107/65 07/15/24 07:36 Pulse Ox 95 07/15/24 07:36 O2 Del Method Room Air 07/15/24 03:53 O2 Flow Rate 8 07/12/24 13:44 07/14/24 07/15/24 07/15/24 22:59 06:59 14:59 Intake Total 1009.5 530 / 530 Output Total 42 / 42 Balance 1009.5 530 / 530 Weight last 48 hrs Weight 125.277 kg Weight 116.8 kg Physical Exam 2 Const: COMMON NORMALS: no acute distress and patient oriented x3 Resp: COMMON NORMALS: normal respiratory effort, No retractions, No use of accessory muscles and clear to auscultation bilaterally AUSCULTATION: clear to auscultation bilaterally Cardio: COMMON NORMALS: regular rate, regular rhythm, S1 normal heart sound present and S2 normal heart sound present RATE: regular rate RHYTHM: r egular rhythm HEART SOUNDS: S1 normal heart sound present and S2 normal heart sound present GI: OTHER: Abdomen soft, slightly distended, scattered bowel sounds, no guarding, no rebound, GJT drain in place, surgical site looks clean and dry Neuro: COMMON NORMALS: patient oriented x3 Psych: COMMON NORMALS: mental status grossly normal Skin: NARRATIVE SKIN EXAM: 1+ pitting edema Data 07/15/24 02:36 07/15/24 02:36 A&P Assessment and plan (1) 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: Qualifiers: Heart failure chronicity: chronic Qualified Code(s): I50.32 - Chronic diastolic (congestive) heart failure; I25.10 - Atherosclerotic heart disease of [place] coronary artery without angina pectoris (2) Diabetes 1.5, managed as type 2: (3) Dyslipidemia (high LDL; low HDL): (4) S/P cholecystectomy: (5) Chronic kidney disease (CKD) stage G4/A1, severely decreased glomerular filtration rate (GFR) between 15-29 mL/min/1.73 square meter and albuminuria creatinine ratio less than 30 mg/g: (6) Ischemic cardiomyopathy: (7) CAD (coronary artery disease): Plan Status post laparoscopic cholecystectomy, laparoscopic repair of duodenal tear, ESBL 200 cc Plan -General Surgery primary -Will be discharged today CKD, as above CAD -Discussed with patient risk and benefits of holding aspirin and Plavix, he voiced understanding, all questions answered, shared decision making hold for now Diastolic CHF -Follow-up for fluid overload Hypertension, monitor Obstructive sleep apnea, will try CPAP Type 2 diabetes mellitus, low-dose sliding scale, check A1c 5.3 PDMP PDMP Reviewed: Not Reviewed Attestations 2 Medical Necessity Statement*: Patient will be discharged today Diagnoses Chronic diastolic heart failure secondary to coronary artery disease I50.32; I25.10 Heart failure chronicity: chronic Diabetes 1.5, managed as type 2 E13.9 Dyslipidemia (high LDL; low HDL) E78.5 S/P cholecystectomy Z90.49 Chronic kidney disease (CKD) stage G4/A1, severely decreased glomerular filtration rate (GFR) between 15-29 mL/min/1.73 square meter and albuminuria creatinine ratio less than 30 mg/g N18.4 Ischemic cardiomyopathy I25.5 CAD (coronary artery disease) I25.10
[2024-07-15 11:05] LABS: Glucose Point of Care 134 mg/dL (70-110)
[2024-07-15 11:15] VITALS: BP 136/72; PULSE 92; TEMP 36.6; O2SAT 97
--- NOTE | 2024-07-15 11:28 | PM.DCS ---
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: Status: Acute Qualifiers: Heart failure chronicity: chronic Qualified Code(s): I50.32 - Chronic diastolic (congestive) heart failure; I25.10 - Atherosclerotic heart disease of [place] coronary artery without angina pectoris (2) Diabetes 1.5, managed as type 2: Status: Acute (3) Dyslipidemia (high LDL; low HDL): Status: Acute (4) S/P cholecystectomy: Status: Acute (5) Chronic kidney disease (CKD) stage G4/A1, severely decreased glomerular filtration rate (GFR) between 15-29 mL/min/1.73 square meter and albuminuria creatinine ratio less than 30 mg/g: Status: Acute (6) Ischemic cardiomyopathy: Status: Acute (7) CAD (coronary artery disease): Status: Acute Reason for Visit Reason for Visit: K81.9 Hospital Course Hospital Course 68-year-old male with multiple medical comorbidities who presented for Interval cholecystectomy after an episode of acute cholecystitis about 6 to 7 weeks ago. Laparoscopic cholecystectomy was technically difficult, there was severe inflammation active and chronic. Under gallbladder was deeply adhered to the surrounding tissues. The procedure was complicated by a partial thickness injury to the duodenum during dissection. This injury was repaired. Patient was kept in the hospital after surgery due to the complexity of the procedure as well as to monitor progression after the repair of the duodenal wall tear. Patient has been doing okay over the last 72 hours, his white count has come back to normal, his LFTs are also normal. He has been monitored by the medical team due to his heart failure and chronic kidney failure. Creatinine level has been stable around 2 and BUN has been stable around 30. He had a mild tachycardia that was controlled after resuming metoprolol. CRP trended down during hospital stay. By the morning of discharge patient was doing well tolerating a full liquid diet, passing significant amount of gas, no nausea or vomiting, no abdominal pain and JOSE CARLOS output serosanguineous. JOSE CARLOS drain was removed and patient will be allowed to transition to the outpatient setting. He will remain on a full liquid diet for 1 more week and then I will follow-up in the clinic. We will set up an appointment for him to follow-up with primary care in regards to his chronic medical problems. Physical Exam GI: OTHER: Abdomen is soft, appropriately tender to palpation, good bowel sounds. Discharge Data Studies Completed and Pending Completed Studies During Hospitalization Category Date Time Status XR chest 1V portable [id number] Routine Exams 07/12/24 12:29 Completed Pathology: Surgical [PTH] Routine Pth 07/12/24 13:45 Completed Pending at discharge Category Date Time Status CRP [C Reactive Protein] AM LABS Lab 07/16/24 04:00 Ordered CRP [C Reactive Protein] AM LABS Lab 07/17/24 04:00 Ordered Radiology Impressions Chest X-Ray 07/12/24 12:29 IMPRESSION: 1. Interval placement of nasogastric tube with the tip projecting over the mid stomach. 2. Pulmonary hypoinflation with compressive changes throughout the lungs. Mild pulmonary vascular congestion can not be excluded. No marisela pulmonary edema is seen. 3. Mild stable cardiomegaly. Laboratory Results WBC 6.80 10^3/uL (3.29-11.43) 07/15/24 02:36 RBC 4.39 10^6/uL (3.85-5.65) 07/15/24 02:36 Hgb 13.00 g/dL (11.27-16.99) 07/15/24 02:36 Hct 42.6 % (37-53) 07/15/24 02:36 MCV 97.0 fl (82-101) 07/15/24 02:36 MCH 29.6 pg (27-33) 07/15/24 02:36 MCHC 30.5 g/dL (30-55) 07/15/24 02:36 RDW 16.5 % (12.1-15.1) H 07/15/24 02:36 Plt Count 155 10^3/cmm (157-399) L 07/15/24 02:36 MPV 12.1 fL (7.4-10.4) H 07/15/24 02:36 Neut % (Auto) 71.6 % 07/15/24 02:36 Lymph % (Auto) 16.9 % 07/15/24 02:36 [place] % (Auto) 8.4 % 07/15/24 02:36 Eos % (Auto) 1.5 % 07/15/24 02:36 Baso % (Auto) 1.2 % 07/15/24 02:36 Neut # (Auto) 4.87 10^3/uL (1.8-7.7) 07/15/24 02:36 Lymph # (Auto) 1.2 10^3/uL (0.8-4.8) 07/15/24 02:36 [place] # (Auto) 0.6 10^3/uL (0.2-0.9) 07/15/24 02:36 Eos # (Auto) 0.1 10^3/uL (0.0-0.8) 07/15/24 02:36 Baso # (Auto) 0.1 10^3/uL (0.0-0.1) 07/15/24 02:36 Nucleated RBC % (auto) 0 % 07/15/24 02:36 Nucleated RBCs # 0.0 /100WBC 07/15/24 02:36 PT 16.00 SECONDS (12.1-14.9) H 07/12/24 13:41 INR 1.20 (0.8-1.2) 07/12/24 13:41 Sodium 143 mmol/L (136-145) 07/15/24 02:36 Potassium 4.8 mmol/L (3.5-5.1) 07/15/24 02:36 Chloride 107 mmol/L (98-107) 07/15/24 02:36 Carbon Dioxide 22 mmol/L (22-29) 07/15/24 02:36 Anion Gap 18.8 (5-19) 07/15/24 02:36 BUN 30 mg/dL (8-23) H 07/15/24 02:36 Creatinine 2.2 mg/dL (0.7-1.2) H 07/15/24 02:36 GFR Calculation 29.8 mL/min (90-130) L 07/15/24 02:36 Glucose 140 mg/dL (65-115) H 07/15/24 02:36 POC Glucose 134 mg/dL (70-110) H 07/15/24 10:45 Estimat Average Glucose 105 07/12/24 13:41 Hemoglobin A1c 5.3 % (4.0-6.0) 07/12/24 13:41 Calculated Osmolality 304 mOsm/kg (285-295) H 07/15/24 02:36 Lactic Acid 1.0 mmol/L (0.5-2.2) 07/14/24 09:22 Calcium 8.9 mg/dL (8.5-10.5) 07/15/24 02:36 Phosphorus 1.6 mg/dL (2.5-4.5) L 07/15/24 02:36 Magnesium 2.0 mg/dL (1.7-2.3) 07/15/24 02:36 Total Bilirubin 0.6 mg/dL (0.15-1.2) 07/15/24 02:36 Direct Bilirubin 0.20 mg/dL (0.00-0.30) 07/15/24 02:36 AST 38 U/L (0-40) 07/15/24 02:36 ALT 22 U/L (0-41) 07/15/24 02:36 Alkaline Phosphatase 69 U/L (40-130) 07/15/24 02:36 C-Reactive Protein 150.3 mg/L (0.0-4.9) H 07/15/24 02:36 NT-Pro-B Natriuret Pep 518 pg/mL (0-125) H 07/13/24 13:41 Total Protein 6.1 g/dL (6.6-8.7) L 07/15/24 02:36 Albumin 3.7 g/dL (3.5-5.2) 07/15/24 02:36 Globulin 2.4 g/dL (1.3-4.6) 07/15/24 02:36 Procalcitonin 0.75 ng/mL (0-0.5) H 07/14/24 05:00 TSH 1.28 uIU/mL (0.27-4.20) 07/12/24 13:41 Vitals Last Vital Signs Temp 97.9 F 07/15/24 11:15 Pulse 92 07/15/24 11:15 Resp 17 07/15/24 07:36 BP 136/72 07/15/24 11:15 Pulse Ox 97 07/15/24 11:15 O2 Del Method Room Air 07/15/24 11:15 O2 Flow Rate 8 07/12/24 13:44 Discharge Plan Discharge Patient Disposition: Home Condition: Stable Prescriptions: New insulin aspart U-100 [Novolog FlexPen U-100 Insulin] 100 unit/mL (3 mL) insulin pen See Rx Instructions .ROUTE .COMPLEX MDD 20 Qty: 15 0RF Rx Instructions: Inject, subcut, 3 times daily, after meals, based on sliding scale provided pantoprazole 40 mg tablet,delayed release (DR/EC) 40 mg PO BID Qty: 60 0RF amoxicillin-pot clavulanate 875-125 mg tablet 1 tab PO BID 7 Days Qty: 14 0RF polyethylene glycol 3350 [Miralax] 17 gram powder in packet 17 g PO PRN 7 Days Qty: 7 0RF Continued Galzin 25 mg (zinc) capsule 50 mg PO DAILY Rx Instructions: swallow whole; do not chew/break/dissolve/open cholecalciferol (vitamin D3) 400 unit capsule 400 unit PO DAILY acetaminophen 500 mg tablet 500 mg PO Q6H PRN (Reason: Pain) testosterone cypionate [Depo-Testosterone] 200 mg/mL oil 400 mg IM .monthly ascorbic acid (vitamin C) 500 mg capsule 500 mg PO DAILY atorvastatin 80 mg tablet 40 mg PO DAILY bupropion HCl 150 mg tablet sustained-release 12 hr 150 mg PO QAM gabapentin 100 mg capsule 100 mg PO DAILY Rx Instructions: 200 mg orally ;2 in the am and 6 in the pm loratadine 10 mg tablet 10 mg PO DAILY multivitamin Tablet 1 tab PO DAILY prazosin 2 mg capsule 2 mg PO .at bedtime levothyroxine 25 mcg tablet 50 mcg PO DAILY metoprolol tartrate 25 mg tablet 25 mg PO BID nitroglycerin [Nitrostat] 0.4 mg tablet, sublingual 0.4 mg SUBLINGUAL Q5M PRN (Reason: chest pain) Qty: 50 2RF (DME) Diabetic shoes with 3 sets of insoles See Rx Instructions .Route .MEDSUPPLY Qty: 1 0RF Rx Instructions: As directed (DME) night splint See Rx Instructions .Route .MEDSUPPLY Qty: 1 0RF Rx Instructions: As directed (DME) diabetic shoes with 3 inserts See Rx Instructions .Route .MEDSUPPLY Qty: 1 0RF Rx Instructions: As directed to the [facility]. (DME) diabetic shoes with 3 insterts See Rx Instructions .Route .MEDSUPPLY Qty: 1 0RF Rx Instructions: As directed by shoe guys milk thistle 150 mg capsule 150 mg PO BID Rx Instructions: give with meal/snack lidocaine 5 % Adhesive Patch,Medicated 1 patch TOPICAL DAILY Rx Instructions: leave on most painful area for up to 12 hrs furosemide 20 mg Tablet 20 mg PO QAM ferrous gluconate 324 mg (37.5 mg iron) tablet 324 mg PO DAILY empagliflozin 25 mg Tablet 12.5 mg PO DAILY Qty: 1 0RF Rx Instructions: Dose decreased only Changed methocarbamol 500 mg tablet 500 mg PO TID PRN (Reason: Acne) Qty: 1 0RF Held clopidogrel 75 mg tablet 75 mg PO DAILY Hold Instructions: Resume on 07/18/24. aspirin [Adult Low Dose Aspirin] 81 mg tablet,delayed release (DR/EC) 81 mg PO DAILY Hold Instructions: Resume on 07/18/24. lisinopril 10 mg tablet 10 mg PO DAILY Hold Instructions: Resume on 07/18/24. Humira Pen 40 mg/0.8 mL pen injector kit 40 mg SUBCUT Q14D Qty: 2 5RF Hold Instructions: Resume on 08/12/24. hold until you see dr. Tineo leflunomide 20 mg tablet 20 mg PO DAILY Qty: 90 1RF Hold Instructions: Resume on 08/12/24. hold until you see dr. Abimael palma-bwwd 40 mg/0.8 mL Auto-Injector 40 mg SUBCUT Q14D Hold Instructions: Resume on 08/12/24. hold until you see dr. Tineo Discharge Orders: Discharge Order (Routine); Ordered 07/15/24 Ordered By: Nilay Reaves Referrals: Nilay Reaves MD [Physician] - 07/27/24 (2 weeks (07/27)) Antoinette Laird MD [Primary Care Provider] - (2 weeks) Discharge Diet: Full LIquid Discharge Activity: Resume usual activity Patient Instructions: Amoxicillin/Clavulanate Potassium (By mouth) (Augmentin, Augmentin..., Pantoprazole (By mouth) (Protonix), Insulin Aspart, Recombinant (By injection) (Novolog, Novolog..., Coronary Artery Disease (DC), Cholecystitis (DC), Acute Wound Care (DC), Laparoscopic Cholecystectomy (DC), Opioid Safety, Post Anesthesia Care Activity Restrictions/Additional Instructions: - If you have sudden onset shortness of breath please come back to the emergency room -Please monitor for signs of blood clots such as calf pain, calf swelling, sudden onset shortness of breath, bloody cough if so please immediately come to the emergency room -Please monitor your blood sugars closely -Monitor your blood sugars 3 times daily as after meals -Please record your blood sugars, and a blood sugar log -For your NovoLog -Please inject blood sugar after meals based on sliding scale provided -Do not inject insulin if you do not eat as hypoglycemia kills -This is a NovoLog sliding scale -Insulin sliding ?fingerstick? Insulin ?141-180?0 units/sq 181-220?2 units/sq ?221-260?4 units/sq ?261-300 6 units/sq ?301-350?8 units/sq ?351-400 10 units/sq ?401-450?12 units/sq >450? 14units/sq -If your blood sugar is greater than 500 go to the emergency room -If your blood sugar is less than 60 or at anytime you feel lightheaded or dizzy or diaphoretic or have chest palpitations check your blood sugar, and eat a hard candy or drink orange juice and go immediately to the emergency room -Remember hypoglycemia kills, so if his blood sugar is less than 60 we have to increase it by taking in a sugary meal such as a hard candy or orange juice and go to the emergency room -If you have any questions please call us where here to help Regarding your surgery. You can walk is much as possible, this will speed up your recovery. No heavy lifting for the next 6 weeks. You can shower let soap and water run over your wounds and then pat dry. Please return to the hospital you have severe abdominal pain that is getting worse over time, nausea and vomit, fever or chills or if you are unable to have a bowel movement. Discharge Attestations Time Spent in Discharge Care*: greater than 30 min Quality Metrics Clinical Quality Measures [ No reported AMI, CVA or VTE this stay] Coding Level of Care Code Acute Code for Chg Fwd Diagnoses Chronic diastolic heart failure secondary to coronary artery disease I50.32; I25.10 Heart failure chronicity: chronic Diabetes 1.5, managed as type 2 E13.9 Dyslipidemia (high LDL; low HDL) E78.5 S/P cholecystectomy Z90.49 Chronic kidney disease (CKD) stage G4/A1, severely decreased glomerular filtration rate (GFR) between 15-29 mL/min/1.73 square meter and albuminuria creatinine ratio less than 30 mg/g N18.4 Ischemic cardiomyopathy I25.5 CAD (coronary artery disease) I25.10
[2024-07-15 15:02] VITALS: BP 136/72; PULSE 92; RESP 17; TEMP 36.6; O2SAT 97
== END 2024-07-15 13:45 | disposition home or self-care (01) | DRG 327 ==
LOC: MEDSURG 19:03
PROVIDERS: Family Medicine; Admitting Provider Surgery; PCP Family Medicine; Visit Provider Surgery
PROC: 0FT44ZZ Resection of Gallbladder, Percutaneous Endoscopic Approach (ICD-10-PCS; CPT 47562; principal; 2024-07-12 09:00)
DX: K91.81 Other intraoperative complications of digestive system (principal); I13.0 Hypertensive heart and chronic kidney disease with heart failure and stage 1 through stage 4 chronic kidney disease, or unspecified chronic kidney disease; S36.430A Laceration of duodenum, initial encounter; K80.10 Calculus of gallbladder with chronic cholecystitis without obstruction; I50.32 Chronic diastolic (congestive) heart failure; Z68.41 Body mass index [BMI] 40.0-44.9, adult; N17.9 Acute kidney failure, unspecified; Y83.6 Removal of other organ (partial) (total) as the cause of abnormal reaction of the patient, or of later complication, without mention of misadventure at the time of the procedure; Y73.8 Miscellaneous gastroenterology and urology devices associated with adverse incidents, not elsewhere classified; Y92.234 Operating room of hospital as the place of occurrence of the external cause; K82.8 Other specified diseases of gallbladder; N18.9 Chronic kidney disease, unspecified; E13.22 Other specified diabetes mellitus with diabetic chronic kidney disease; I25.10 Atherosclerotic heart disease of native coronary artery without angina pectoris; E78.5 Hyperlipidemia, unspecified; I25.5 Ischemic cardiomyopathy; G47.33 Obstructive sleep apnea (adult) (pediatric); E66.01 Morbid (severe) obesity due to excess calories; I25.2 Old myocardial infarction; Z79.82 Long term (current) use of aspirin; Z79.02 Long term (current) use of antithrombotics/antiplatelets; Z79.84 Long term (current) use of oral hypoglycemic drugs; Z87.891 Personal history of nicotine dependence
CPT/HCPCS: 36415; 36416; 71045; 80048; 80076; 82962; 83036; 83605; 83735; 83880; 84100; 84145; 84443; 85025; 85610; 86140; 88304; 93005; 94664; 96372; C1713; J0131; J0612; J0690; J1100; J1171; J1815; J2371; J2405; J2470; J2543; J2704; J3010; J3490; J7030

== ENCOUNTER → 2024-08-03 08:44 | Outpatient (BNVA) | payer OTHER, MEDICARE, SELFPAY | PROVIDERS: PCP Family Medicine; Visit Provider Surgery | DX: E66.01 Morbid (severe) obesity due to excess calories (principal); Z90.49 Acquired absence of other specified parts of digestive tract; Z68.41 Body mass index [BMI] 40.0-44.9, adult; Z98.890 Other specified postprocedural states | CPT/HCPCS: 99024 ==

== ENCOUNTER → 2024-09-16 13:32 | Outpatient (BNVA) | payer OTHER, SELFPAY | PROVIDERS: PCP Family Medicine; Visit Provider Internal Medicine Cardiovascular Disease | DX: E78.5 Hyperlipidemia, unspecified (principal); I25.10 Atherosclerotic heart disease of native coronary artery without angina pectoris; I11.0 Hypertensive heart disease with heart failure; I50.32 Chronic diastolic (congestive) heart failure; I73.9 Peripheral vascular disease, unspecified; Z87.891 Personal history of nicotine dependence | CPT/HCPCS: 99214 ==

== ENCOUNTER → 2024-09-28 09:45 | Outpatient (BNVA) | payer OTHER, SELFPAY | PROVIDERS: PCP Family Medicine; Visit Provider Podiatrist Foot & Ankle Surgery | DX: I73.9 Peripheral vascular disease, unspecified (principal); L60.3 Nail dystrophy; L84 Corns and callosities; N18.4 Chronic kidney disease, stage 4 (severe); M21.621 Bunionette of right foot; M21.622 Bunionette of left foot; M21.41 Flat foot [pes planus] (acquired), right foot; M21.42 Flat foot [pes planus] (acquired), left foot | CPT/HCPCS: 11056; 11721; 99213 ==

== ENCOUNTER → 2024-10-01 10:26 | Outpatient (BNVA) | payer OTHER, SELFPAY | PROVIDERS: PCP Family Medicine; Visit Provider Nurse Practitioner Family | DX: L73.9 Follicular disorder, unspecified (principal); R60.0 Localized edema; L57.8 Other skin changes due to chronic exposure to nonionizing radiation; D22.4 Melanocytic nevi of scalp and neck; L81.4 Other melanin hyperpigmentation; L82.1 Other seborrheic keratosis; Z08 Encounter for follow-up examination after completed treatment for malignant neoplasm; Z85.828 Personal history of other malignant neoplasm of skin; L57.0 Actinic keratosis | CPT/HCPCS: 17000; 99214 ==

== ENCOUNTER → 2024-10-27 09:38 | Outpatient (BNVA) | payer OTHER, SELFPAY | PROVIDERS: PCP Family Medicine; Visit Provider Internal Medicine Rheumatology | DX: Z79.899 Other long term (current) drug therapy (principal); N18.4 Chronic kidney disease, stage 4 (severe); E13.9 Other specified diabetes mellitus without complications; M25.50 Pain in unspecified joint; M19.90 Unspecified osteoarthritis, unspecified site | CPT/HCPCS: 36415; 80076; 82565; 85025; 85651; 86140; 86480; 86704; 86803; 99214 ==

== ENCOUNTER → 2024-11-16 14:15 | Outpatient (BNVA) | payer OTHER, SELFPAY | PROVIDERS: PCP Family Medicine; Visit Provider Nurse Practitioner Family | DX: L73.9 Follicular disorder, unspecified (principal); L57.8 Other skin changes due to chronic exposure to nonionizing radiation; D22.4 Melanocytic nevi of scalp and neck; L81.4 Other melanin hyperpigmentation; B37.42 Candidal balanitis; Z08 Encounter for follow-up examination after completed treatment for malignant neoplasm; Z85.828 Personal history of other malignant neoplasm of skin; L57.0 Actinic keratosis | CPT/HCPCS: 17000; 99214 ==

== ENCOUNTER 2024-12-02 09:58 | Outpatient (CLI) | payer OTHER, SELFPAY ==
[2024-12-02 11:26] LABS: Basophils # 0.1 10^3/uL (0.0-0.1); Basophils % 2.1 %; Eosinophils # 0.1 10^3/uL (0.0-0.8); Eosinophils % 2.7 %; Hematocrit 54.2 % (37-53); Lymphocytes # 1.2 10^3/uL (0.8-4.8); Lymphocytes % 26.7 %; Mean Corpuscular HGB Conc 31.9 g/dL (30-55); Mean Corpuscular Hemoglobin 30.6 pg (27-33); Mean Corpuscular Volume 95.9 fl (82-101); Mean Platelet Volume 11.9 fL (7.4-10.4); Monocytes # 0.4 10^3/uL (0.2-0.9); Monocytes % 8.2 %; Neutrophils # 2.64 10^3/uL (1.8-7.7); Neutrophils % 60.1 %; Nucleated Red Blood Cells % 0 %; Platelet Count 152 10^3/cmm (157-399); Red Blood Count 5.65 10^6/uL (3.85-5.65); Red Cell Distribution Width 13.3 % (12.1-15.1); White Blood Count 4.39 10^3/uL (3.29-11.43)
[2024-12-02 11:37] LABS: Erythrocyte Sedimentation Rate 4 mm/hr (0-10)
[2024-12-02 12:02] LABS: Hepatitis B Surface Antigen Non-Reactive (Nonreactive)
[2024-12-02 13:22] LABS: Alanine Aminotransferase 33 U/L (0-41); Albumin Level 3.9 g/dL (3.5-5.2); Alkaline Phosphatase 102 U/L (40-130); Aspartate Amino Transferase 29 U/L (0-40); Globulin 2.8 g/dL (1.3-4.6); Glomerular Filtration Rate 28.3 mL/min (90-130); Total Bilirubin 0.3 mg/dL (0.15-1.2); Total Protein 6.7 g/dL (6.6-8.7)
[2024-12-02 13:23] LABS: Bilirubin Direct 0.12 mg/dL (0.00-0.30)
== END 2024-12-02 09:59 | disposition home or self-care (01) ==
PROVIDERS: Internal Medicine Rheumatology; PCP Family Medicine; Visit Provider Registered Nurse
DX: Z79.899 Other long term (current) drug therapy (principal); N18.4 Chronic kidney disease, stage 4 (severe); E83.9 Disorder of mineral metabolism, unspecified
CPT/HCPCS: 36415; 80076; 82565; 85025; 85651; 86140; 87340

== ENCOUNTER → 2024-12-28 09:52 | Outpatient (BNVA) | payer OTHER, SELFPAY | PROVIDERS: PCP Family Medicine; Visit Provider Podiatrist Foot & Ankle Surgery | DX: E11.42 Type 2 diabetes mellitus with diabetic polyneuropathy (principal); L60.3 Nail dystrophy; L84 Corns and callosities; N18.4 Chronic kidney disease, stage 4 (severe); I73.9 Peripheral vascular disease, unspecified; M21.621 Bunionette of right foot; M21.622 Bunionette of left foot; M21.41 Flat foot [pes planus] (acquired), right foot; M21.42 Flat foot [pes planus] (acquired), left foot; Z79.84 Long term (current) use of oral hypoglycemic drugs | CPT/HCPCS: 11056; 11721 ==

== ENCOUNTER → 2025-01-18 08:42 | Outpatient (BNVA) | payer OTHER, SELFPAY | PROVIDERS: PCP Family Medicine; Visit Provider Nurse Practitioner Family | DX: B37.42 Candidal balanitis (principal); L57.0 Actinic keratosis; L81.4 Other melanin hyperpigmentation; L57.8 Other skin changes due to chronic exposure to nonionizing radiation; D22.4 Melanocytic nevi of scalp and neck; Z08 Encounter for follow-up examination after completed treatment for malignant neoplasm; Z85.828 Personal history of other malignant neoplasm of skin | CPT/HCPCS: 99214 ==

== ENCOUNTER → 2025-03-10 13:31 | Outpatient (BNVA) | payer OTHER, SELFPAY | PROVIDERS: PCP Family Medicine; Visit Provider Internal Medicine Rheumatology | DX: Z79.899 Other long term (current) drug therapy (principal); N18.4 Chronic kidney disease, stage 4 (severe); E11.9 Type 2 diabetes mellitus without complications; M13.0 Polyarthritis, unspecified; M06.00 Rheumatoid arthritis without rheumatoid factor, unspecified site | CPT/HCPCS: 36415; 80076; 82565; 85025; 85651; 86140; 99214 ==

== ENCOUNTER → 2025-03-29 09:35 | Outpatient (BNVA) | payer OTHER, SELFPAY | PROVIDERS: PCP Family Medicine; Visit Provider Internal Medicine Cardiovascular Disease | DX: I13.0 Hypertensive heart and chronic kidney disease with heart failure and stage 1 through stage 4 chronic kidney disease, or unspecified chronic kidney disease (principal); N18.2 Chronic kidney disease, stage 2 (mild); I50.30 Unspecified diastolic (congestive) heart failure; I25.10 Atherosclerotic heart disease of native coronary artery without angina pectoris; E78.2 Mixed hyperlipidemia; I73.9 Peripheral vascular disease, unspecified; Z95.5 Presence of coronary angioplasty implant and graft; Z87.891 Personal history of nicotine dependence; I25.2 Old myocardial infarction | CPT/HCPCS: 99214 ==

== ENCOUNTER → 2025-03-29 10:34 | Outpatient (BNVA) | payer OTHER, SELFPAY | PROVIDERS: PCP Family Medicine; Visit Provider Podiatrist Foot & Ankle Surgery | DX: E11.8 Type 2 diabetes mellitus with unspecified complications (principal); L60.3 Nail dystrophy; I73.9 Peripheral vascular disease, unspecified; N18.4 Chronic kidney disease, stage 4 (severe); M21.621 Bunionette of right foot; M21.622 Bunionette of left foot; L84 Corns and callosities; M21.41 Flat foot [pes planus] (acquired), right foot; M21.42 Flat foot [pes planus] (acquired), left foot; E11.42 Type 2 diabetes mellitus with diabetic polyneuropathy | CPT/HCPCS: 11056; 11721 ==

== ENCOUNTER 2025-04-07 11:25 | Outpatient (CLI) | payer OTHER, SELFPAY ==
[2025-04-07 11:53] LABS: Hematocrit 41.6 % (37-53); Hemoglobin 13.60 g/dL (11.27-16.99); Mean Corpuscular HGB Conc 32.7 g/dL (30-55); Mean Corpuscular Hemoglobin 29.2 pg (27-33); Mean Corpuscular Volume 89.5 fl (82-101); Nucleated Red Blood Cells % 0 %; Platelet Count 116 10^3/cmm (157-399); Red Blood Count 4.65 10^6/uL (3.85-5.65); White Blood Count 4.68 10^3/uL (3.29-11.43)
[2025-04-07 12:14] LABS: Albumin Level 4.0 g/dL (3.5-5.2); Anion Gap 15.3 (5-19); Blood Urea Nitrogen 32 mg/dL (8-23); Calcium 8.8 mg/dL (8.5-10.5); Carbon Dioxide 25 mmol/L (22-29); Chloride 107 mmol/L (98-107); Glucose 117 mg/dL (65-115); Potassium 4.3 mmol/L (3.5-5.1); Sodium 143 mmol/L (136-145)
[2025-04-07 12:19] LABS: Calcium 8.7 mg/dL (8.5-10.5)
[2025-04-07 13:38] LABS: Creatinine Urine, Random 37 mg/dL (39-259); Microalbum Creatinine Ratio Ur 27 mg/dL (0-20)
== END 2025-04-07 11:26 | disposition home or self-care (01) ==
PROVIDERS: Internal Medicine Rheumatology; PCP Family Medicine; Visit Provider Registered Nurse
DX: N18.4 Chronic kidney disease, stage 4 (severe) (principal); D69.6 Thrombocytopenia, unspecified
CPT/HCPCS: 36415; 80069; 82044; 82310; 83970; 85025